=== PATIENT | female | born 1955 | race Caucasian/White ===

== ENCOUNTER → 2018-05-07 01:56 | Outpatient (CLI) | payer MEDICAID, SELFPAY ==
[2018-05-07 11:09] LABS: HCT 47.2 % (36.0-46.0); HGB 15.9 g/dL (12.0-15.5); Mean Corp. HGB Concentration 33.7 g/dL (32.0-36.0); Mean Corpuscular Hemoglobin 30.6 pg (27.0-33.0); Mean Corpuscular Volume 90.9 fL (80-95); Mean Platelet Volume 11.7 fL (8.0-11.0); Platelet Count 188 x1000/uL (130-400); RBC 5.19 m/cumm (4.00-5.20); RBC Distribution Width 13.9 % (11.7-14.6); White Blood Cell Count 8.57 k/cumm (4.4-10.8)
[2018-05-07 11:19] LABS: Hemoglobin A1C 10.1 % (4.5-6.2)
[2018-05-07 11:55] LABS: ALT 40 U/L (12-78); AST 25 U/L (15-37); Albumin 3.8 g/dL (3.4-5.0); Alkaline Phosphatase 107 U/L (46-116); Anion Gap 9.8 mmol/L (3-11); BUN 21 mg/dL (7-18); Bilirubin, Total 0.3 mg/dL (0.2-1.0); CO2 26.2 mmol/L (21.0-32.0); CREATININE 0.99 mg/dL (0.55-1.02); Calcium 8.9 mg/dL (8.5-10.1); Chloride 103 mmol/L (98-107); Estimated GFR 56.84 (mL/min/1.73m2); Ferritin 450 ng/mL (8-388); GGT 67 U/L (5-55); Glucose 270 mg/dL (70-100); HDL Cholesterol 27 mg/dL (40-60); LDL CHOLESTEROL 112 mg/dL (<100); Potassium 4.8 mmol/L (3.5-5.1); Sodium 139 mmol/L (136-145); Total Protein 7.6 g/dL (6.4-8.2); Triglyceride 408 mg/dL (30-150)
[2018-05-07 12:08] LABS: Cholesterol 190 mg/dL (50-200)
[2018-05-07 12:17] LABS: COMMENT (LAB VIEW ONLY) 220.41 mg/dL; Microalb ug/mg Crea 34.8 ug/mg Cr
== END ==
PROVIDERS: PCP Family Medicine; Visit Provider Family Medicine
DX: E11.9 Type 2 diabetes mellitus without complications (principal); E78.5 Hyperlipidemia, unspecified; R71.8 Other abnormality of red blood cells; Z72.89 Other problems related to lifestyle
CPT/HCPCS: 36415; 80053; 80061; 83721; 85027; 82043; 82570; 82728; 82977; 83036

== ENCOUNTER 2018-11-07 07:14 | Emergency (ER) | payer MEDICAID, SELFPAY ==
[2018-11-07 07:21] VITALS: BP 143/77; PULSE 99; RESP 16; TEMP 36.5; O2SAT 97
[2018-11-07 07:53] LABS: Abs Immature Grans 0.02 k/cumm (0.0-0.09); Absolute Basophil Count 0.06 k/cumm (0.0-0.2); Absolute Eosinophil Count 0.11 k/cumm (0.0-0.7); Absolute Lymphocyte Count 3.46 k/cumm (1.2-3.4); Absolute Monocyte Count 0.45 k/cumm (0.11-0.7); Absolute Neutrophil Count 5.56 k/cumm (1.2-6.7); Basophils % 0.6; Eosinophils % 1.1; HCT 47.1 % (36.0-46.0); HGB 15.8 g/dL (12.0-15.5); Immature Grans % 0.2; Lymphocytes % 35.8; Mean Corp. HGB Concentration 33.5 g/dL (32.0-36.0); Mean Corpuscular Hemoglobin 30.8 pg (27.0-33.0); Mean Corpuscular Volume 91.8 fL (80-95); Monocytes % 4.7; Neutrophils % 57.6; Platelet Count 221 x1000/uL (130-400); RBC 5.13 m/cumm (4.00-5.20); White Blood Cell Count 9.66 k/cumm (4.4-10.8)
[2018-11-07 08:07] LABS: ALT 34 U/L (12-78); AST 20 U/L (15-37); Albumin 3.8 g/dL (3.4-5.0); Alkaline Phosphatase 95 U/L (46-116); Anion Gap 10.3 mmol/L (3-11); BUN 19 mg/dL (7-18); Bilirubin, Total 0.3 mg/dL (0.2-1.0); CO2 27.7 mmol/L (21.0-32.0); CREATININE 1.06 mg/dL (0.55-1.02); Calcium 9.6 mg/dL (8.5-10.1); Chloride 101 mmol/L (98-107); Estimated GFR 52.53 (mL/min/1.73m2); Glucose 249 mg/dL (70-100); Lipase 175 U/L (73-393); Magnesium 1.7 mg/dL (1.8-2.4); Potassium 3.9 mmol/L (3.5-5.1); Sodium 139 mmol/L (136-145); Total Protein 8.5 g/dL (6.4-8.2)
--- NOTE | 2018-11-07 08:07 | W.ED.GENAD ---
Discharge Plan Disposition Patient Disposition: HOME Condition: Improving Discharge Details Chief Complaint: Abd Prob Clinical Impression: Gastroenteritis Primary Care Provider: Graciela Dominguez ED Provider: Declan Pacheco Home Meds and New Rx's Prescriptions: Continued ibuprofen 200 MG tablet 1,000 mg PO HS RF: 0 bupropion HCl [Wellbutrin SR] 150 MG tablet extended release 12 hr 150 mg PO BID 30 Days Qty: 180 RF: 11 glipizide 5 MG tablet extended release 24hr 5 mg PO BID Qty: 180 RF: 11 blood sugar diagnostic [FreeStyle Lite Strips] 1 EACH strip 1 ea Miscellaneous DAILY Qty: 100 RF: 11 lancets [FreeStyle Lancets] 1 EACH misc 1 ea Miscellaneous DAILY Qty: 100 RF: 11 metformin 1,000 MG tablet 500 mg PO BID RF: 0 Discharge Instructions Instructions: Gastroenteritis (ED) Additional Instructions: Home to rest today. Return if you develop a fever, increasing discomfort, or any other acute concerns. Small, frequent sips of fluids to maintain hydration. Follow-up with regular doctor if not improving in 3 days time Medical Decision Making 62-year-old female presents from home with intermittent episodes of right upper quadrant abdominal pain over 2-3 weeks time. She denies any inciting foods and did not have an associated fever. She says she had similar presentation when having an episode of hepatitis approximately 4 years ago. She states she has had a cholecystectomy. Her vital signs reveal a temp of 36, pulse 90s, blood pressure 143/77, she is tender in the right upper quadrant of her abdomen. Her current hepatitis, viral syndrome, colitis considered and patient referred for laboratory testing and subsequent CT images. Labs are reassuring with normal LFTs and lipase. White blood cell count is 9. Chemistries unremarkable. CT: 1. Fatty infiltration of the liver. Stable hepatomegaly. 2. Cecum to the left of midline and in the anterior abdomen, similar in appearance to previous examination. No proximal obstruction or cecal dilatation to suggest volvulus. 3. Appendix not visualized. No pericecal inflammatory changes. Patient improved. Discussed with her home management of probable mild viral gastroenteritis, as well as return precautions to the ED. She is stable for discharge home at this time. HPI General Mode of arrival: ambulatory. Date/Time Provider Initiated Documentation: 11/07/18 07:40. Limitations to Documentation: no limitations. Information obtained by: patient. History of Present Illness 62 year old F presents to the emergency department with the chief complaint of Abdominal pain, right-sided and upper over weeks time, worse yesterday, described as moderate, Quality is described as aching, and is localized to the abdomen. Patient reports no radiation. Patient started experiencing this week(s) and it has been intermittent. No relieving factors improve symptom(s), No exacerbating factors reported . Patient notes no other symptoms.; denies fever/chills and nausea/vomiting. Patient did receive the following treatments prior to arrival, none Related Data Home Medications Medication Instructions Recorded Confirmed blood sugar diagnostic [FreeStyle #100 strip 05/11/18 Lite Strips] bupropion HCl [Wellbutrin SR] 150 mg PO BID 30 Days #180 tab-cap 05/11/18 11/07/18 glipizide 5 mg PO BID #180 tab-cap 05/11/18 11/07/18 ibuprofen 1,000 mg PO HS 05/11/18 11/07/18 lancets [FreeStyle Lancets] #100 ea 05/11/18 metformin 500 mg PO BID 11/07/18 11/07/18 Previous Rx's Medication Instructions Recorded blood sugar diagnostic [FreeStyle #100 strip 05/11/18 Lite Strips] bupropion HCl [Wellbutrin SR] 150 mg PO BID 30 Days #180 tab-cap 05/11/18 glipizide 5 mg PO BID #180 tab-cap 05/11/18 lancets [FreeStyle Lancets] #100 ea 05/11/18 Allergies Allergy/AdvReac Type Severity Reaction Status Date / Time omeprazole [From Prilosec] AdvReac Unknown diarrhea Unverified 11/07/18 07:19 General Stated Complaint: Abd Prob DAR: 3 Review of Systems Review of Systems 8 systems reviewed and otherwise negative [facility] Surgical History Cholecystectomy LAPAROSCOPIC LYSIS OF ADHESIONS (12/20/12) Ligation of fallopian tube (~1981) Family History Mother No problems noted. Father Electrocution Daughter Essential hypertension Depression Sister Diabetes Essential hypertension Neoplasm Social History Smoking and Tabacco status: Current every day Exam Narrative Exam Narrative: GEN: awake, alert, oriented 3. Pleasant, well groomed, interactive. HEAD: Normocephalic, atraumatic ENT: Mucous membranes moist, oropharynx unremarkable, External ear exam unremarkable EYES: PERRL, EOMI NECK: Full ROM, no KRISTA, no menigismus CHEST/RESP: Nontender, clear to auscultation bilateral, no wheeze/rhonchi/rales CARDIOVASCULAR: RRR, no murmur, rub brandee. 2+ Rad pulse bilateral ABDOMEN: Soft, right upper quadrant tenderness without rebound, guarding, no Hernandez sign, no mass. +Bowel sounds EXT: Full ROM, no edema, no rash Neuro: Grossly normal neurologic exam, conversant, interactive. Psych: Speech fluent, thoughts congruent, affect normal Course Vital Signs Temperature 36.5 C 11/07/18 07:21 Pulse 99 H 11/07/18 07:21 Respiratory Rate 16 11/07/18 07:21 Blood Pressure 143/77 H 11/07/18 07:21 Pulse Oximetry 97 11/07/18 07:21 Temperature 36.5 C 11/07/18 07:21 Pulse 99 H 11/07/18 07:21 Respiratory Rate 16 11/07/18 07:21 Respiratory Effort Non-Labored 11/07/18 07:26 Blood Pressure 143/77 H 11/07/18 07:21 Blood Pressure Position Sitting 11/07/18 07:21 Pulse Oximetry 97 11/07/18 07:21 Oxygen Delivery Method Room Air 11/07/18 07:21 Oxygen Flow Rate 0 11/07/18 07:21 Pain Level 5 11/07/18 07:21 Lab/Test Results Lab/Test Results: Laboratory Tests Range/Units 11/07/18 07:40 WBC (4.4-10.8) k/cumm 9.66 RBC (4.00-5.20) m/cumm 5.13 Hgb (12.0-15.5) g/dL 15.8 H Hct (36.0-46.0) % 47.1 H MCV (80-95) fL 91.8 MCH (27.0-33.0) pg 30.8 MCHC (32.0-36.0) g/dL 33.5 RDW (11.7-14.6) % 14.0 Plt Count (130-400) x1000/uL 221 MPV (8.0-11.0) fL 11.0 Immature Gran % 0.2 Neutrophils % 57.6 Lymphocytes % 35.8 Monocytes % 4.7 Eosinophils % 1.1 Basophils % 0.6 Absolute Neutrophils (1.2-6.7) k/cumm 5.56 Absolute Lymphocytes (1.2-3.4) k/cumm 3.46 H Absolute Monocytes (0.11-0.7) k/cumm 0.45 Absolute Eosinophils (0.0-0.7) k/cumm 0.11 Absolute Basophils (0.0-0.2) k/cumm 0.06
[2018-11-07] MEDS: Normal Saline 250 ML IV (08:15)
[2018-11-07] MEDS: Omnipaque 350 MG/ML 100 ML BTL IJ (08:56)
--- NOTE | 2018-11-07 09:10 | DI.CT_ITS ---
SYMPTOMS/DIAGNOSIS: RIGHT PAIN, H/O HEPATITIS, S/P CHOLECYSTECTOMY CT SCAN OF THE ABDOMEN AND PELVIS: CT scan of the abdomen and pelvis was performed following the uneventful administration of intravenous contrast material. The lung bases show no acute abnormality. There is diffuse fatty infiltration of the liver. No evidence of a hepatic mass is seen. The portal, superior mesenteric and splenic veins are patent. The patient is status post cholecystectomy. No biliary ductal dilatation is present. The pancreas, spleen and adrenal glands are stable and unremarkable. There is again seen a cyst on the left kidney, which appears stable. No evidence of a solid renal mass or urinary obstruction is seen. The urinary bladder is intact. The reproductive organs are unremarkable. There is atherosclerosis of the abdominal aorta, but no aneurysmal dilatation. No significant abdominal or pelvic adenopathy, ascites or pneumoperitoneum is seen. The bowel has a stable appearance. No evidence of a bowel obstruction, inflammation or infectious process. No findings to suggest an acute appendicitis are present. The bones show degenerative changes. IMPRESSION: No evidence of an acute abdomen.
--- NOTE | 2018-11-07 09:44 | DI.VRAD_ITS ---
EXAM: CT Abdomen and Pelvis With Contrast EXAM DATE/TIME: 11/07/2018 8:22 AM CLINICAL HISTORY: 62 years old, female; Signs and symptoms; Other: R pain, HX 'hepatitis', s. P dipti TECHNIQUE: Axial computed tomography images of the abdomen and pelvis with intravenous contrast. All CT scans at this facility use at least one of these dose optimization techniques: automated exposure control; mA and/or kV adjustment per patient size (includes targeted exams where dose is matched to clinical indication); or iterative reconstruction. Coronal and sagittal reformatted images were created and reviewed. COMPARISON: CT ABD PELVIS WITH CONTRAST 12/20/2012 7:07 PM FINDINGS: Lower thorax: No acute findings. ABDOMEN: Liver: Fatty infiltration of the liver. Stable hepatomegaly. Gallbladder and bile ducts: Previous cholecystectomy. Pancreas: Normal. No ductal dilation. Spleen: Normal. No splenomegaly. Adrenals: Stable left adrenal nodule measures 1.1 x 1.1 cm. Kidneys and ureters: Stable left cortical renal cyst. Stomach and bowel: Cecum to the left of midline and in the anterior abdomen, similar in appearance to previous examination. No proximal obstruction or cecal dilatation to suggest volvulus. Clinical correlation necessary. Appendix: Appendix not visualized. No pericecal inflammatory changes. PELVIS: Bladder: Unremarkable as visualized. Reproductive: Unremarkable as visualized. ABDOMEN and PELVIS: Intraperitoneal space: Normal. No free air. No significant fluid collection. Bones/joints: No acute fracture. No dislocation. Soft tissues: Unremarkable. Vasculature: Normal. No abdominal aortic aneurysm. Lymph nodes: Normal. No enlarged lymph nodes. IMPRESSION: 1. Fatty infiltration of the liver. Stable hepatomegaly. 2. Cecum to the left of midline and in the anterior abdomen, similar in appearance to previous examination. No proximal obstruction or cecal dilatation to suggest volvulus. Clinical correlation necessary. 3. Appendix not visualized. No pericecal inflammatory changes. Dictated and Authenticated by: Amira El MD. Ordering:DARRYL Manriquez MD
[2018-11-07 09:59] VITALS: BP 165/71; PULSE 83; RESP 16; TEMP 36.7; O2SAT 96
== END 2018-11-07 10:01 | disposition home or self-care (01) ==
PROVIDERS: Emergency Medicine; Emergency Provider Emergency Medicine; PCP Family Medicine
DX: K52.9 Noninfective gastroenteritis and colitis, unspecified (principal); J44.9 Chronic obstructive pulmonary disease, unspecified; F17.210 Nicotine dependence, cigarettes, uncomplicated; E11.9 Type 2 diabetes mellitus without complications; Z79.84 Long term (current) use of oral hypoglycemic drugs
CPT/HCPCS: 36415; 80053; 83690; 96360; 96361; 99285; 74177; 83735; 85025; 99284; J3490

== ENCOUNTER 2019-02-07 16:25 | Outpatient (CLI) | payer MEDICAID, SELFPAY ==
--- NOTE | 2019-02-07 15:30 | DI.RAD_ITS ---
SYMPTOM/DIAGNOSIS: CHRONIC LOW BACK PAIN, M54.5, G89.29 LUMBAR SPINE: There is no evidence of compression fractures. The alignment appears normal. There is no significant scoliosis, spondylolysis or spondylolisthesis. There is mild narrowing of the L 2-3 and L 3-4 discs, moderate narrowing of the L 4-5 disc and severe narrowing of the L 5-S 1 disc. Endplate osteophytes are seen throughout. The aorta is calcified and normal in diameter. There is some spurring at the inferior SI joints as well as hip joints. There is narrowing of the left hip joint space. Surgical clips are seen in the right upper quadrant. IMPRESSION: Degenerative changes of the lumbar spine, greatest at L 4-5 and L 5-S 1.
== END 2019-02-07 16:45 ==
PROVIDERS: PCP Family Medicine; Visit Provider Family Medicine
DX: G89.29 Other chronic pain (principal); M54.5 Low back pain; M51.37 Other intervertebral disc degeneration, lumbosacral region
CPT/HCPCS: 72110

== ENCOUNTER 2019-02-23 21:06 | Outpatient (REF) | payer MEDICAID, SELFPAY ==
[2019-02-23 20:56] LABS: Bilirubin Negative (Negative); Blood Negative (Negative); Clarity Clear; Glucose >=1000 mg/dL (Negative); Ketones 15 mg/dL (Negative); Leukocyte Esterase Small (Negative); Nitrite Negative (Negative); Urobilinogen 0.2 EU/dL (Up TO 0.2)
[2019-02-23 20:58] LABS: C & S Indicated? C&S Done As Ordered
[2019-02-23 21:20] LABS: Bacteria Many HPF (Negative); Casts Negative LPF (Negative); Crystals Few Calcium Oxalate HPF (Negative); Epithelial Cells Moderate HPF (Negative); Mucus Negative (Negative); WBC >50 HPF (0-5)
== END 2019-02-23 21:26 ==
LOC: LBN 21:06
PROVIDERS: PCP Family Medicine; Visit Provider Family Medicine
DX: R27.8 Other lack of coordination (principal); R41.0 Disorientation, unspecified; R47.01 Aphasia
CPT/HCPCS: 81003; 81015; 87086

== ENCOUNTER 2019-02-24 07:05 | Outpatient (CLI) | payer MEDICAID, SELFPAY ==
--- NOTE | 2019-02-24 09:52 | DI.US_ITS ---
SYMPTOMS/DIAGNOSIS: TRANSIENT ISCHEMIC ATTACK, TRANSIENT CONFUSION, EXPRESSIVE APHASIA, INCOORDINATION OF EXTREMITY, DISORIENTATION, R41.0, R47.01, R27.8 CAROTID ULTRASOUND: Mild plaque is noted in the carotid bulbs, right more prominent than left. There is bilateral antegrade flow in the vertebrals. There is no evidence of significant carotid stenosis. Incidental note is made of a nodule in the left thyroid lobe. SUMMARY: No evidence of significant carotid stenosis.
--- NOTE | 2019-02-24 09:52 | DI.CT_ITS ---
SYMPTOMS/DIAGNOSIS: TRANSIENT CONFUSION, EXPRESSIVE APHASIA, INCOORDINATION OF EXTREMITY, DISORIENTATION, R41.0, R47.01, R27.8, SX SUGGESTIVE OF CEREBRAL ISCHEMIA CRANIAL CT: A noncontrast enhanced examination was performed. There is no evidence of an intra or extra-axial hemorrhage, mass or fluid collection. Small regions of diminished absorption in the frontoparietal white matter bilaterally would be consistent with small vessel disease. The ventricles are unremarkable. There is no evidence of a skull fracture. The frontal sinus is not aerated. The ethmoid, maxillary and sphenoid sinus is clear. There is no evidence of a mastoid effusion. SUMMARY: No evidence of an acute intracerebral abnormality.
== END 2019-02-24 07:25 ==
PROVIDERS: PCP Family Medicine; Visit Provider Family Medicine
DX: R27.8 Other lack of coordination (principal); R41.0 Disorientation, unspecified; R47.01 Aphasia; G45.9 Transient cerebral ischemic attack, unspecified
CPT/HCPCS: 80053; 80061; 83721; 85652; 70450; 83036; 85025; 93880

== ENCOUNTER 2019-03-01 21:43 | Outpatient (REF) | payer MEDICAID, SELFPAY ==
[2019-03-01 19:41] LABS: Bilirubin Negative (Negative); Blood Negative (Negative); Clarity Clear; Glucose 250 mg/dL (Negative); Ketones Trace mg/dL (Negative); Leukocyte Esterase Negative (Negative); Nitrite Negative (Negative); Specific Gravity 1.025 (1.005-1.025); Urobilinogen 0.2 EU/dL (Up TO 0.2)
[2019-03-01 19:50] LABS: Bacteria Negative HPF (Negative); C & S Indicated? No; Casts Negative LPF (Negative); Crystals Negative HPF (Negative); Epithelial Cells Rare HPF (Negative); Mucus Negative (Negative); Other Cells Negative (Negative); RBC 0-2 (0-2); WBC 0-2 HPF (0-5)
== END 2019-03-01 22:03 ==
LOC: LBN 21:43
PROVIDERS: PCP Family Medicine; Visit Provider Family Medicine
DX: R31.29 Other microscopic hematuria (principal)
CPT/HCPCS: 81003; 81015

== ENCOUNTER 2019-03-07 02:25 | Outpatient (CLI) | payer MEDICAID, SELFPAY ==
--- NOTE | 2019-03-10 05:46 | HOLTER_ITS ---
HOLTER MONITOR DATE OF DICTATION March 09, 2019 STUDY INDICATIONS: Aphasia. REQUESTING PROVIDER: Wilbert Gallegos M.D. COMMENTS: The patient was monitored for two days. Baseline sinus rhythm. Average heart rate 94 beats per minute, range 71 to 152 beats per minute. 18 PVCs. No VT. 14 PACS. No SVT or Afib. No bradycardias or pauses. SYMPTOMS No patient events. FINAL INTERPRETATION Normal study. Drew Neves M.D. THOMAS/иван T - 03/10/19
== END 2019-03-07 02:45 ==
PROVIDERS: PCP Family Medicine; Visit Provider Family Medicine
DX: R47.01 Aphasia (principal); R41.82 Altered mental status, unspecified; I49.3 Ventricular premature depolarization; I49.1 Atrial premature depolarization
CPT/HCPCS: 93225

== ENCOUNTER 2019-03-09 10:40 | Outpatient (CLI) | payer MEDICAID, SELFPAY | END 2019-03-09 11:00 | PROVIDERS: PCP Family Medicine; Visit Provider Family Medicine | DX: R47.01 Aphasia (principal); R41.82 Altered mental status, unspecified; I49.3 Ventricular premature depolarization; I49.1 Atrial premature depolarization | CPT/HCPCS: 93226 ==

== ENCOUNTER 2020-04-23 01:00 | Outpatient (CLI) | payer SELFPAY ==
--- NOTE | 2020-04-23 08:02 | DI.CT_ITS ---
EXAM: CT HEAD WO CLINICAL HISTORY: DOWNING, weakness with falls for 3weeks,r53.1,R51,W19.XXA. TECHNIQUE: Imaging Protocol: Axial computed tomography images with coronal and sagittal reformatted images were created and reviewed COMPARISON: CT CT HEAD WO from 02/24/2019 FINDINGS: Ventricles and Extra axial spaces: Normal in size and morphology for the patient's age. Hemorrhage: None. Cerebral parenchyma: Mildly decreased attenuation in white matter of the left parietal lobe. Midline shift: None. Brainstem/Cerebellum: Normal. Calvarium: Normal. Visualized Paranasal sinuses/Mastoids: Clear. Soft Tissues: Unremarkable. IMPRESSION: Small area of decreased attenuation in the left parietal white matter, could represent represent sequ tomi small vessel disease. No acute abnormality is identified.. RADIATION DOSE DELIVERED: Total DLP DATA REPOSITORY: All CT scans at this facility are submitted to the National Radiology Data Registry (NRDR) Dose Index Registry (DIR) with the [employer] (ACR). RADIATION OPTIMIZATION: All CT scans at this facility use at least one of these dose optimization te chniques: automated exposure control; mA and/or kV adjustment per patient size (includes targeted exa ms where dose is matched to clinical indication); or iterative reconstruction.
== END 2020-04-23 01:20 ==
PROVIDERS: PCP Family Medicine; Visit Provider Family Medicine
DX: R51 Headache (principal); R53.1 Weakness; W19.XXXA Unspecified fall, initial encounter
CPT/HCPCS: 70450

== ENCOUNTER 2020-04-30 00:59 | Outpatient (CLI) | payer MEDICAID, SELFPAY ==
--- NOTE | 2020-04-30 07:42 | DI.MRI_ITS ---
EXAM: MR BRAIN WO/W CLINICAL HISTORY: LEFT-SIDED FACIAL PARESTHESIA, DIZZINESS,FALLS, DOWNING,R20.2,R51, R42, W19.XXXA. TECHNIQUE: Multiplanar multisequence MRI was performed. MR examination of the brain was performed a ccording to the usual protocol with additional post contrast T1 weighted axial and coronal imaging. COMPARISON: No exams were available for comparison FINDINGS: There is mild generalized cerebral atrophy. There are multiple small focal areas of abnormal signal in periventricular white matter consistent with microvascular ischemic change. Small subcortical are as of abnormal signal are also noted on T2 weighted and FLAIR imaging and there is an area of abnorma l signal, left parietooccipital region, involving the periventricular and subcortical white matter. Diffusion-weighted imaging shows no evidence of acute or subacute infarction. Susceptibility-weighte d imaging shows no evidence of hemorrhage. No enhancing lesion or mass lesion identified in the brai n. The orbital and temporal bone structures appear intact. There is normal flow void in the [place] vasculature. IMPRESSION: Signal changes involving subcortical and periventricular white matter as described above, possible sm all old left parietooccipital infarct. No evidence of acute or subacute infarction or hemorrhage. N o enhancing lesion or mass lesion. DATA REPOSITORY:
[2020-04-30 13:57] LABS: Abs Immature Grans 0.03 10^3/uL (0.0-0.06); Absolute Basophil Count 0.09 10^3/uL (0.0-0.2); Absolute Eosinophil Count 0.22 10^3/uL (0.0-0.7); Absolute Lymphocyte Count 4.64 10^3/uL (1.2-3.4); Absolute Monocyte Count 0.72 10^3/uL (0.1-0.8); Absolute Neutrophil Count 5.48 10^3/uL (1.2-6.7); Basophils % 0.8; HCT 50.3 % (36.0-46.0); HGB 16.3 g/dL (11.2-15.7); Immature Grans % 0.3; Lymphocytes % 41.5; MCH 29.9 pg (27.0-33.0); MCHC 32.4 % (32.0-36.0); MCV 92.3 fL (80-95); MPV 11.2 fL (8.0-11.0); Monocytes % 6.4; Platelet Count 208 10^3/uL (130-400); RBC 5.45 10^6/uL (3.93-5.22); RDW 14.1 % (11.7-14.6); WBC 11.18 10^3/uL (4.4-10.8)
[2020-04-30 14:07] LABS: Hemoglobin A1C 9.5 % (3.8-5.6)
[2020-04-30 14:17] LABS: ALT 32 U/L (14-59); AST 18 U/L (15-37); Albumin 3.8 g/dL (3.4-5.0); Alkaline Phosphatase 93 U/L (46-116); Anion Gap 10.2 mmol/L (3-11); BUN 19 mg/dL (7-18); Bilirubin, Total 0.2 mg/dL (0.2-1.0); CO2 23.8 mmol/L (21.0-32.0); CREATININE 0.83 mg/dL (0.55-1.02); Calcium 9.2 mg/dL (8.5-10.1); Chloride 104 mmol/L (98-107); Cholesterol 140 mg/dL (<200); Glucose 222 mg/dL (74-106); HDL Cholesterol 25 mg/dL (40-60); Potassium 3.8 mmol/L (3.5-5.1); Sodium 138 mmol/L (136-145); TSH (W/Ref FT4) 1.08 uIU/mL (0.36-3.74); Triglyceride 567 mg/dL (<150)
[2020-04-30] MEDS: Normal Saline Flush 10 ML SYR IVP (14:27)
[2020-04-30] MEDS: Gadoterate meglumine 20 ML VIAL 15 ML IVP (14:27)
[2020-04-30 14:33] LABS: LDL CHOLESTEROL 74 mg/dL (<100)
[2020-04-30 14:58] LABS: ESR 24 mm/hr (0-30)
[2020-04-30 15:29] LABS: Bilirubin Negative (Negative); Blood Negative (Negative); Clarity Clear (Clear); Glucose >=1000 mg/dL (Negative); Ketones Negative (Negative); Leukocyte Esterase Negative (Negative); Nitrite Negative (Negative); Urobilinogen 0.2 EU/dL (Up TO 0.2); pH 5.5 (5-8)
[2020-05-01 11:29] LABS: Lyme Ab w Rflx to Lyme Confirm Negative (Negative)
== END 2020-04-30 01:19 ==
PROVIDERS: PCP Family Medicine; Visit Provider Family Medicine
DX: G31.9 Degenerative disease of nervous system, unspecified (principal); R53.1 Weakness; R29.6 Repeated falls; R20.2 Paresthesia of skin; R42 Dizziness and giddiness; R51 Headache; R90.89 Other abnormal findings on diagnostic imaging of central nervous system
CPT/HCPCS: 70553; 80053; 80061; 83721; 85652; 81003; 83036; 84443; 85025; 86618

== ENCOUNTER 2020-05-11 01:46 | Outpatient (CLI) | payer MEDICAID, SELFPAY ==
--- NOTE | 2020-05-11 05:45 | DI.US_ITS ---
EXAM: US CAROTID CLINICAL HISTORY: frequent falls,bilat claudification of lower limb,smoker,low hdl,r29.6. TECHNIQUE: Ultrasound carotids performed using grayscale, color-flow, and spectral Doppler imaging. COMPARISON: US US carotid from 02/24/2019 FINDINGS: RIGHT CAROTID ARTERY: Plaque: [id number] calcific plaque in the carotid bulb and proximal ICA. Velocity elevation: No hemodynamically significant velocity elevation. LEFT CAROTID ARTERY: Plaque: [id number] calcific plaque in the carotid bulb and proximal ICA. Velocity elevation: No hemodynamically significant velocity elevation. VERTEBRAL ARTERIES: Antegrade flow. Measurements: R Bulb: 70.7cm/s PS / 19.9cm/s ED R CCA: 75.2cm/s PS / 18cm/s ED R ECA: PS / ED R ICA Prox: 114.6cm/s PS /29.4cm/s ED R ICA Mid: 104.1cm/s PS / 28.4cm/s ED R ICA Distal: 65.3cm/s PS /22.3cm/s ED R Vert: 27.3cm/s PS / 8.3cm/s ED R SVR: 1.52 R DVR: 1.63 L Bulb: 83.1cm/s PS /21.7cm/s ED L CCA: 69.4cm/s PS / 19.9cm/s ED L ECA: PS / ED L ICA Prox:94.85cm/s PS / 24.95cm/s ED L ICA Mid: 90.7cm/sPS / 34.2cm/s ED L ICA Distal: 100.8cm/s PS / 34.7cm/s ED L Vert: 41.5cm/s PS / 16.3cm/s ED L SVR: 1.45 L DVR: 1.53 IMPRESSION: No evidence for hemodynamically significant carotid stenosis. Criteria for Carotid Stenosis: Normal: ICA PSV <125 cm/s no plaque or intimal thickening is visible. <50% stenosis: ICA PSV <125 cm/s and plaque or intimal thickening is visible. 50-69% stenosis: ICA PSV is 125-250 cm/s and plaque is visible. >70% stenosis to near occlusion: ICA PSV >250 cm/s with visible plaque and luminal narrowing. DATA REPOSITORY:
== END 2020-05-11 02:06 ==
PROVIDERS: PCP Family Medicine; Visit Provider Family Medicine
DX: R29.6 Repeated falls (principal); F17.200 Nicotine dependence, unspecified, uncomplicated; E11.51 Type 2 diabetes mellitus with diabetic peripheral angiopathy without gangrene
CPT/HCPCS: 93880

== ENCOUNTER 2020-05-25 00:45 | Outpatient (CLI) | payer MEDICAID, SELFPAY ==
--- NOTE | 2020-05-31 10:40 | W.CARDEVENT ---
Date of service: 05/31/20 Time of Service: 10:40 Cardiac Event Recorder Referring Provider:: Dr Schmitt Indications:: CVA Cardiac Event Note: This is an event monitor reportedly ordered for indication of cerebral infarction Patient was monitored for 3 days. Rhythm was sinus. Average heart rate was 96 There were no significant dysrhythmias. Specifically there was no atrial fibrillation seen
== END 2020-05-25 01:05 ==
PROVIDERS: PCP Family Medicine; Visit Provider Psychiatry & Neurology Neurology
DX: I63.9 Cerebral infarction, unspecified (principal)
CPT/HCPCS: 93270

== ENCOUNTER 2020-06-07 00:53 | Outpatient (CLI) | payer MEDICAID, SELFPAY ==
--- NOTE | 2020-06-07 08:00 | DI.US_ITS ---
APPROVED REPORT EXAM: Comprehensive 2D, Doppler, and color-flow Echocardiogram Patient Location: Out-Patient Fine [employer] Instructor: Debbie Galindo RDCS (AE) Indications: Stroke, CVA Other Information Study Quality: Adequate Conclusion Left Ventricle : The left ventricle is normal size. The left ventricular systolic function is normal. The left ventricular ejection fraction is within the normal range. There is normal left ventricular wall thickness. There is normal LV segmental wall motion. Mild diastolic dysfunction is present (impa ired relaxation pattern). LVEF is 55%. Right Ventricle : The right ventricle is normal size. The right ventricular systolic function is norm al. Atria : The left atrium size is normal. The right atrium size is normal. Valves: There are no hemodynamically significant valvular lesions. Great Vessels : The aortic root is normal in size. The ascending aorta is mildly dilated. Aortic arch is not well visualized. IVC is normal in size and collapses >50% with inspiration. There is no prior study available for comparison. Wall motion Left Ventricle The left ventricle is normal size. The left ventricular systolic function is normal. The left ventric ular ejection fraction is within the normal range. There is normal left ventricular wall thickness. T here is normal LV segmental wall motion. Mild diastolic dysfunction is present (impaired relaxation p attern). There is no ventricular septal defect visualized. LVEF is 55%. Right Ventricle The right ventricle is normal size. The right ventricular systolic function is normal. Atria The left atrium size is normal. The right atrium size is normal. The interatrial septum is intact wit h no evidence for an atrial septal defect. Aortic Valve The aortic valve is normal in structure. Aortic valve is trileaflet. There is no aortic valvular sten osis. No aortic regurgitation is present. Mitral Valve The mitral valve is normal in structure. No evidence of mitral valve stenosis. Trace mitral regurgita tion. Tricuspid Valve The tricuspid valve is normal in structure. There is no tricuspid valve stenosis. Trace tricuspid reg urgitation. Pulmonic Valve The pulmonary valve is normal in structure. There is no pulmonic valvular stenosis. There is no pulmo kianna valvular regurgitation. Great Vessels The aortic root is normal in size. The ascending aorta is mildly dilated. Aortic arch is not well vis ualized. IVC is normal in size and collapses >50% with inspiration. Pericardium There is no pericardial effusion. 2D Dimensions IVSD d PLAX 1.00 cm F: 0.6-1.0 LV Vol A2C d MOD 75.5 mL LVPW d PLAX 1.01 cm F: 0.6 - 1.0 LV Vol A4C d MOD 61.0 mL LVID d PLAX 4.06 cm F: 3.8 - 5.2 LA vol/ BSA A2C s A-L 14.4 mL/m2 LVDs 2.90 cm F: 2.2 - 3.5 LA vol/ BSA A4C s A-L 9.2 mL/m2 Ao Root d 3.08 cm F: 2.7 - 3.3 LA Vol/ BSA Biplane s A-L 12.0 mL/m2 RA Area A4C 9.38 cm2 LA Area A4C s MOD 8.13 cm2 RA Vol/ BSA A4C s A-L 10.4 mL/m2 LA Area A2C s MOD 10.60 cm2 Ao Asc Diam d 3.25 cm F: 2.3 - 3.1 LV EF A4C MOD 55.4 % LV EF Teichholz 55.2 % LV EF A2C MOD 54.9 % LVEF (Medina's) 55.20 % F: 54 - 74 LV EF Biplane MOD 55.2 % LV Volume 54.98 mL F: 46 - 106 SV 38.93 mL LV Volume Index 30.71 mL/m2 F: 29 - 61 SV Index 21.77 mL/m2 LV Vol Biplane MOD 70.5 mL FS 28.30 % M-Mode TAPSE 1.63 cm (M/F) >1.7 LV Diastology MV E' medial 0.055 (>0.07 m/s) E/A Ratio 0.6 LV E/e MED 10.20 (<14) MV E Vmax 0.57 (0.4-1.3 m/s) MV E' lateral 0.093 (>0.1 m/s) MV A Vmax 1.00 (0.4-1.3 m/s) LV E/e LAT 6.05 (<14) MV E/A Ratio 0.56 MV E/E' medial 10.22 MV E/E' lateral 6.10 Aortic Valve LVOT Area 3.87 cm2 AoV Area Vmax 2.76 cm2 LVOT Vmax 0.77 m/s AoV Area/ BSA (Vmax) 1.54 cm2/m2 LVOT Mean Kemar. 0.54 m/s ZHEN Mean Kemar. 2.59 cm2 LVOT Peak Grad 2.4 mmHg ZHEN Mean [place]. Index 1.45 cm2/m2 LVOT Mean Grad 1.3 mmHg LVOT VTI 0.143 m LVOT Diam s 2.20 cm AoV Vmax 1.09 m/s Velocity Ratio 0.70 AoV Mean Kemar. 0.81 m/s AoV Peak Grad 4.7 mmHg LVOT SV 55.48 mL AoV Mean Grad 2.8 mmHg AoV VTI 0.231 m AoV Area VTI 2.41 cm2 AoV Area/ BSA (VTI) 1.35 cm/m2 Mitral Valve MV DT 180 (160-240 msec) MV PHT 52 msec MV Area PHT 4.22 cm2 Pulmonary Valve PV Vmax 0.86 (0.5-1.5 m/s) RVOT Peak Gr. 1.56 mmHg PV Peak Grad 3.0 mmHg RVOT Mean Gr. 0.90 mmHg PV Mean Grad 1.5 mmHg RVOT VTI 0.127 m PV VTI 0.153 m RVOT Vmax 0.62 m/s Tricuspid Valve TR Peak Grad 21.6 mmHg TR Vmax 2.33 m/s RA Pressure 3.00 mmHg RVSP (TR) 24.7 mmHg
== END 2020-06-07 01:13 ==
PROVIDERS: PCP Family Medicine; Visit Provider Psychiatry & Neurology Neurology
DX: I63.9 Cerebral infarction, unspecified (principal); I77.810 Thoracic aortic ectasia
CPT/HCPCS: 93306

== ENCOUNTER 2020-06-21 08:12 | Outpatient (CLI) | payer MEDICAID, SELFPAY ==
--- NOTE | 2020-06-21 09:53 | DI.RAD_ITS ---
EXAM: XR SACROILIAC JOINTS CLINICAL HISTORY: SI joint stiffness and pain bilat.m53.3,g89.29. TECHNIQUE: 2D digital imaging was performed. COMPARISON: No exams were available for comparison FINDINGS: The sacroiliac joints are well maintained. No ankylosis or erosions. Mild significant degenerative changes are seen. Note is made of moderately severe degenerative changes of the left hip with joint space narrowing, subchondral sclerosis and cysts, and hypertrophic changes. There are mild degenerat claudia changes seen of the right hip. Atherosclerosis is present. Degenerative changes are seen in the lower lumbar spine. IMPRESSION: 1. Mild degenerative changes of the SI joints. 2. Moderately severe left hip osteoarthritis. DATA REPOSITORY: RADIATION DOSE DELIVERED:
== END 2020-06-21 08:32 ==
PROVIDERS: PCP Family Medicine; Visit Provider Family Medicine
DX: M53.3 Sacrococcygeal disorders, not elsewhere classified (principal); G89.29 Other chronic pain; M16.12 Unilateral primary osteoarthritis, left hip
CPT/HCPCS: 72202

== ENCOUNTER 2020-07-19 04:32 | Outpatient (CLI) | payer MEDICAID, SELFPAY | END 2020-07-19 04:52 | PROVIDERS: PCP Family Medicine; Visit Provider Psychiatry & Neurology Neurology | DX: I63.9 Cerebral infarction, unspecified (principal) | CPT/HCPCS: 0296T ==

== ENCOUNTER 2020-08-09 01:32 | Outpatient (CLI) | payer MEDICAID, SELFPAY ==
--- NOTE | 2020-08-09 13:00 | NS.NUTBLAN_ITS ---
ASSESSMENT: Kera ( 64 y/o F) referred by Dr Rm for nutritional counseling R/T DM2, food choices hx elevated A1c and BG. Documentation reveals hx A1c > 14% with most recent (04/30/20) at 16.3% (CH) and BG 222 mg/dl (H). Finger stick in this office ~ 2hrs postprandial revealed 176 mg/dl (WNL for PWD). She has a glucomter and test strips at home and documentation shows this. She is currently 165lb which is 137.5% IBW. Nutritional needs based on ABW 140lbs as follows: 1600- 1920 k/gaurav, 77 g/ pro, 1900-200 ml fluids/day. She drinks crystal light mixed with water and coffee with sweetened flavored creamer and splenda. Noted: Documentation shows hx ETOH which she denies. She has PVD which she states prevents her from taking walks. She stated that she goes to PT and uses the pool at those sessions. She is on glipizide 5 mg and metformin 500mg. Both of these are in the ER form to mitigate GI side effects. She is a smoke and says she has cut back.She cooks at home.She reports eating 3 bananas/day as snacks. INTERVENTION: Reviewed CHO counting techniques. Demonstrated and had patient utilize [employer] and [place] [employer] phone ariella to help with CHO counting. Recommended Heart healthy low Na diet in addition to her CHO controlled food choices. Noted: she has HX CVA. Educated Kera on CHO and PRO pairing top help with glucose spikes. Recommended food record and BG record keeping X 7 days to facilitate understanding of BG levels and food choices. Discussed alternative snacks or reducing banana consumption to 1 per day to reduce CHO intake. Provided take home literature on all topics Provided contact info for this RD to help with food choices, recipes or questions related to nutrition reviewed portion sizes and provided covered portion control plate to help with appropriate intake of macronutrients intake. MONITOR/EVAL: Kera has agreed to set up F/U appointment in 30 days to review progress and go over her food and BG log to look at the relationship between food choices and BG levels. Time Spent face to Face: 4 units/1 hour. .
== END 2020-08-09 01:52 ==
PROVIDERS: PCP Family Medicine; Visit Provider Dietitian, Registered
DX: E11.65 Type 2 diabetes mellitus with hyperglycemia (principal); Z79.84 Long term (current) use of oral hypoglycemic drugs; Z71.3 Dietary counseling and surveillance
CPT/HCPCS: 97802

== ENCOUNTER 2020-08-17 01:55 | Outpatient (CLI) | payer MEDICAID, SELFPAY ==
[2020-08-17 08:25] LABS: Hemoglobin A1C 7.2 % (<5.7)
[2020-08-17 09:59] LABS: ALT 28 U/L (14-59); AST 16 U/L (15-37); Albumin 3.8 g/dL (3.4-5.0); Alkaline Phosphatase 78 U/L (46-116); Anion Gap 11.7 mmol/L (3-11); BUN 25 mg/dL (7-18); Bilirubin, Total 0.3 mg/dL (0.2-1.0); CO2 26.3 mmol/L (21.0-32.0); CREATININE 0.97 mg/dL (0.55-1.02); Calcium 8.9 mg/dL (8.5-10.1); Calculated LDL 49 mg/dL (<100); Chloride 103 mmol/L (98-107); Cholesterol 132 mg/dL (<200); Estimated GFR 57.82 (mL/min/1.73m2); Glucose 146 mg/dL (74-106); HDL Cholesterol 31 mg/dL (40-60); Potassium 4.5 mmol/L (3.5-5.1); Sodium 141 mmol/L (136-145); Total Protein 7.6 g/dL (6.4-8.2); Triglyceride 263 mg/dL (<150)
== END 2020-08-17 02:15 ==
PROVIDERS: PCP Family Medicine; Visit Provider Family Medicine
DX: E11.9 Type 2 diabetes mellitus without complications (principal)
CPT/HCPCS: 36415; 80053; 80061; 83036

== ENCOUNTER 2020-09-12 00:21 | Outpatient (CLI) | payer OTHER, MEDICAID, SELFPAY ==
--- NOTE | 2020-09-12 09:25 | DI.RAD_ITS ---
EXAM: XR HIP PELVIS ADULT BL CLINICAL HISTORY: SCIATIC PAIN OF HIPS, DISABILITY DETERMINATION. TECHNIQUE: 2D digital imaging was performed. COMPARISON: CR XR lumbar spine complete from 02/07/2019 FINDINGS: No evidence of pelvic nor hip fracture. No osseous lesions. There are moderate-advanced degenerativ e changes in the left hip. Mild degenerative changes in the right hip. No osseous lesions. Vascula r calcification both femoral arteries and iliac arteries noted. IMPRESSION: Advanced degenerative changes in the left hip. No fracture evident. Signature DATA REPOSITORY: RADIATION DOSE DELIVERED:
--- NOTE | 2020-09-12 09:25 | DI.RAD_ITS ---
EXAM: XR LUMBAR SPINE AP, LAT CLINICAL HISTORY: DISABILITY DETERMINATION,LOW BACK PAIN. TECHNIQUE: 2D digital imaging was performed. COMPARISON: CR LUMBAR SPINE AP, LAT from 10/09/2013 FINDINGS: There is no evidence of fracture or listhesis nor pars defects. There is advanced disc space narrowi ng at L5-S1 level. Moderate-advanced disc space narrowing again noted at L4-5 and L3-4 levels. Post erior bony ridging at L3-4 level is again noted; probably an element of canal stenosis. Moderate dis c space narrowing at L1-2 and L2-3 levels again noted. No osseous lesions. No scoliosis. Moderate mild facet arthropathy. SI joints unremarkable. Calcified abdominal aorta with possible fusiform an eurysm upper abdominal aorta. IMPRESSION: Multilevel chronic degenerative disc disease. Mild progression from 2013. Probable spinal canal emmy nosis. Calcified abdominal aorta with suggestion of possible aneurysm. This is at L2 level. Recommend ultr asound of the abdominal aorta follow-up. DATA REPOSITORY: RADIATION DOSE DELIVERED:
== END 2020-09-12 00:41 ==
PROVIDERS: PCP Family Medicine; Visit Provider Pediatrics Pediatric Rheumatology
DX: M47.816 Spondylosis without myelopathy or radiculopathy, lumbar region (principal); I70.0 Atherosclerosis of aorta; M16.12 Unilateral primary osteoarthritis, left hip; I70.203 Unspecified atherosclerosis of native arteries of extremities, bilateral legs
CPT/HCPCS: 73521; 72100

== ENCOUNTER 2020-11-02 19:26 | Outpatient (REF) | payer MEDICAID, SELFPAY ==
[2020-11-02 14:36] LABS: COMMENT (LAB VIEW ONLY) 45.45 mg/dL; Microalb ug/mg Crea 26.8 ug/mg Cr
== END 2020-11-02 19:27 | disposition home or self-care (01) ==
LOC: LBN 19:26
PROVIDERS: PCP Family Medicine; Visit Provider Nurse Practitioner Family
DX: Z00.00 Encounter for general adult medical examination without abnormal findings (principal)
CPT/HCPCS: 82043; 82570

== ENCOUNTER 2020-11-22 15:35 | Outpatient (REF) | payer MEDICAID, SELFPAY | END 2020-11-22 15:36 | disposition home or self-care (01) | LOC: LBN 15:35 | PROVIDERS: PCP Family Medicine; Visit Provider Nurse Practitioner Family | DX: N76.0 Acute vaginitis (principal) | CPT/HCPCS: 87480; 87510; 87660 ==

== ENCOUNTER 2021-01-24 16:39 | Inpatient (IN) | payer MEDICARE, MEDICAID, SELFPAY ==
[2021-01-24] VITALS (38 sets, daily range): BP systolic 124–189; BP diastolic 59–109; PULSE 76–97; RESP 16–25; TEMP 36.7; O2SAT 86–100
--- NOTE | 2021-01-24 16:30 | DI.CT_ITS ---
Exam(s) CT HEAD - STROKE PROTOCOL EXAM: CT HEAD - STROKE PROTOCOL CLINICAL HISTORY: prior stroke, severe DOWNING. TECHNIQUE: Imaging Protocol: Axial computed tomography images with coronal and sagittal reformatted images were created and reviewed COMPARISON: No exams were available for comparison FINDINGS: Ventricles and Extra axial spaces: Normal in size and morphology for the patient's age. Hemorrhage: None. Cerebral parenchyma: No acute territorial infarct is identified. Midline shift: None. Brainstem/Cerebellum: Normal. Calvarium: Normal. Visualized Paranasal sinuses/Mastoids: Clear. Soft Tissues: Unremarkable. IMPRESSION: No acute intracranial process. RADIATION DOSE DELIVERED: 731.08mGy.cm Total DLP DATA REPOSITORY: All CT scans at this facility are submitted to the National Radiology Data Registry (NRDR) Dose Index Registry (DIR) with the [employer] (ACR). RADIATION OPTIMIZATION: All CT scans at this facility use at least one of these dose optimization te chniques: automated exposure control; mA and/or kV adjustment per patient size (includes targeted exa ms where dose is matched to clinical indication); or iterative reconstruction.
--- NOTE | 2021-01-24 16:30 | RT.EKG_ITS ---
APPROVED REPORT Exam: Resting ECG Patient Location: E HR:87 bpm ECG Measurements Heart Rate 87 AXIS AZ 151 P 55 QRSd 79 QRS 47 QT 386 T 56 QTc 465 Conclusion Sinus rhythm...normal P axis, V-rate 60- 99
[2021-01-24] MEDS: Ondansetron 4 MG/2 ML VIAL IVP (17:00)
--- NOTE | 2021-01-24 17:01 | ED.GENADUL_ITS ---
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 Patient weakness is present on exam and otherwise neurologic exam unremarkable. Patient has been having headaches almost daily. Screening ECG was reviewed and interpreted by me: Please see report, sinus rhythm, 87 bpm, nondiagnostic. Plan to proceed to stat CT of the head to assess for hemorrhagic stroke. We will treat pain with Dilaudid 1 mg IV and nausea with Zofran 4 mg IV. --Patient was noted to have an episode of vomiting. I will give Compazine IV with Benadryl IV to treat both headache and the nausea 1951 -- CTA of the head was interpreted by radiology: CT of the head was interpreted by radiology: Mild asymmetric thickening of the left torus tubarius , new from prior study. Consider possible inflammatory process. Follow-up recommended. No evidence of for acute intracranial vascular abnormality CTA of the neck was interpreted by radiology: severe stenosis proximal left subclavian artery. Mild proximal right and left ICA stenosis. Discussed results with the patient including limitations of diagnostic results. Discussed lumbar puncture additional diagnostic recommendation and patient provided informed refusal of LP. Given prior stroke history and needing worsening left-sided weakness/paresthesia, consider CVA. Plan to hospitalize for further work-up. Patient reassessed and notes significant improvement in headache with Compazine. I spoke with Dr. Simmons and discussed ED presentation and course including diagnostic results. He will admit the patient. HPI General Mode of arrival: ambulatory . Date/Time Provider Initiated Documentation: 01/24/21 16:42 . Limitations to Documentation: no limitations . Information obtained by: patient . HPI Narrative: 65-year-old female with multiple medical problems including history of intermittent headaches, multiple CVAs and residual left-sided facial weakness, here with severe headache. Headache started yesterday evening and has persisted. Headache is severe rated 9/10. No modifiers. Headache is localized to left frontal. She also notes associated increased tingling/weakness left face. No other numbness or weakne ss. No neck pain. No fevers. Patient does note associated vomiting just prior to arrival. Related Data Home Medications Medication Instructions Recorded Confirmed Blood Glucose Test #100 each NS 05/09/20 01/31/21 atorvastatin 20 mg tablet 20 mg PO QHS #90 tab 05/09/20 01/31/21 blood-glucose meter #1 each 05/09/20 01/31/21 glipizide 5 mg tablet, extended 5 mg PO BID #180 tab-cap 05/09/20 01/31/21 release 24 hr lancets 28 gauge #100 ea 05/09/20 01/31/21 clopidogrel 75 mg tablet 75 mg PO DAILY #90 tab 07/16/20 01/31/21 metformin 500 mg tablet,extended 1,000 mg PO BID tab 10/01/20 01/31/21 release 24 hr blood pressure monitor #1 ea 10/02/20 01/31/21 citalopram 20 mg tablet 40 mg PO DAILY #60 tab 11/02/20 01/31/21 verapamil 40 mg tablet 40 mg PO DAILY #90 tab 11/14/20 01/31/21 galcanezumab-gnlm 120 mg/mL 240 mg SUBCUT ONCE #2 ml 01/31/21 01/31/21 subcutaneous pen injector Previous Rx's Medication Instructions Recorded Blood Glucose Test #100 each NS 05/09/20 atorvastatin 20 mg tablet 20 mg PO QHS #90 tab 05/09/20 blood-glucose meter #1 each 05/09/20 glipizide 5 mg tablet, extended 5 mg PO BID #180 tab-cap 05/09/20 release 24 hr lancets 28 gauge #100 ea 05/09/20 clopidogrel 75 mg tablet 75 mg PO DAILY #90 tab 07/16/20 blood pressure monitor #1 ea 10/02/20 citalopram 20 mg tablet 40 mg PO DAILY #60 tab 11/02/20 verapamil 40 mg tablet 40 mg PO DAILY #90 tab 11/14/20 galcanezumab-gnlm 120 mg/mL 240 mg SUBCUT ONCE #2 ml 01/31/21 subcutaneous pen injector Allergies Allergy/AdvReac Type Severity Reaction Status Date / Time omeprazole [From Prilosec] AdvReac Unknown diarrhea Verified 01/31/21 15:01 General Stated Complaint: CVA/TIA DAR: 2 Review of Systems All systems reviewed & are unremarkable except as noted in HPI and below Constitutional Constitutional: Denies fever(s) Neurologic Neurologic: Reports as per HPI [facility] Medical History Alcohol intake above recommended sensible limits Chronic left hip pain (02/05/18) Chronic obstructive lung disease (01/08/09) Depression (10/26/17) DM type 2 (diabetes mellitus, type 2) Dysfunctional uterine bleeding (01/25/08) Gastroesophageal reflux disease Hyperlipidemia Lumbar disc prolapse with compression radiculopathy (01/25/08) S/P L4-5 disc herniation w/ nerve root impingement; L5 vertebral hemangioma; bilateral L5-S1 foraminal narrowing. Panic attack as reaction to stress (10/26/17) Stroke Tubular adenoma 05/15/11; DR. PORSCHE SHERMAN Surgical History H/O section x2 History of bilateral ligation of fallopian tubes LAPAROSCOPIC LYSIS OF ADHESIONS (12/20/12) DR. MYERS Status post cholecystectomy Family History Mother No problems noted. 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 Pets and animals: Yes Pets and animals: cat(s) Sexually active: No What is your relationship status?: refused to answer How often do you talk on the phone with friends or family?: twice per week How often do you get together with friends or relatives?: never How often do you attend amish or christian services?: decline to answer Do you belong to any clubs or organized social groups?: no Panel score (0-1 are the most socially isolated patients): 0 What type of physical activity do you participate in: walking Duration: < 15 minutes/day Frequency: 5-6 times per week Ofelia/Zoroastrian: No preference Seatbelt use: always Helmet use: No Drive intox or ride w/intox special education bus driver: No Do you feel safe at home: Yes Do you feel safe in your relationship?: Yes Exam Const General: cooperative and no acute distress HENMT Mouth: moist mucous membranes Eyes Conjunctivae: normal conjunctivae Sclera: normal sclerae Pupils: PERRL EOM: EOM intact bilaterally Neck Neck: trachea midline and supple Resp Auscultation: clear to auscultation bilaterally, no rales, no rhonchi and no wheezes Cardio Rate: regular rate and not tachycardic Rhythm: regular rhythm GI Palpation: soft, not firm, no guarding, no masses, not rigid and nontender Skin General skin exam: no rashes or lesions noted Neuro General: patient alert, patient awake, patient oriented x3 and tone normal Cognition: normal cognition Speech: speech normal Motor: strength 5/5 throughout (Lower extremities) Sensory Exam: no sensory deficits noted Other: Mild left facial weakness Extrem General: no edema Psych Appearance: grossly normal Mental Status: mental status grossly normal Speech and Movement: speech and movement normal Course Vital Signs Vital signs: Vital Signs Temperature 36.7 C 01/24/21 16:46 Pulse 85 01/24/21 16:46 Respiratory Rate 20 01/24/21 16:46 Blood Pressure 174/71 H 01/24/21 16:46 Pulse Oximetry 97 01/24/21 16:46 Temperature 36.7 C 01/24/21 16:46 Temperature Source Temporal Artery Scan 01/24/21 16:46 Pulse 85 01/24/21 16:46 Respiratory Rate 20 01/24/21 16:46 Blood Pressure 174/71 H 01/24/21 16:46 Blood Pressure Position Sitting 01/24/21 16:46 Pulse Oximetry 97 01/24/21 16:46 Oxygen Delivery Method Room Air 01/24/21 16:46 Oxygen Flow Rate 0 01/24/21 16:46 Pain Level 9 01/24/21 16:46
[2021-01-24] MEDS: HYDROmorphone 2 MG/ML VIAL 1 MG IVP (17:08)
[2021-01-24 17:10] LABS: Abs Immature Grans 0.05 10^3/uL (0.0-0.06); Absolute Basophil Count 0.11 10^3/uL (0.0-0.2); Absolute Eosinophil Count 0.32 10^3/uL (0.0-0.7); Absolute Lymphocyte Count 4.98 10^3/uL (1.2-3.4); Absolute Monocyte Count 0.91 10^3/uL (0.1-0.8); Absolute Neutrophil Count 5.95 10^3/uL (1.2-6.7); Basophils % 0.9; Eosinophils % 2.6; HCT 46.3 % (36.0-46.0); HGB 15.3 g/dL (11.2-15.7); Immature Grans % 0.4; Lymphocytes % 40.4; MCH 30.3 pg (27.0-33.0); MCV 91.7 fL (80-95); MPV 10.5 fL (8.0-11.0); Monocytes % 7.4; Neutrophils % 48.3; Nucleated RBC 0 %; Platelet Count 227 10^3/uL (130-400); RBC 5.05 10^6/uL (3.93-5.22); RDW 14.7 % (11.7-14.6); WBC 12.32 10^3/uL (4.4-10.8)
[2021-01-24 17:14] LABS: Prothrombin Time 10.4 sec (9.3-11.0)
[2021-01-24] MEDS: Lactated Ringers 1,000 ML 125 ML IV (17:16)
--- NOTE | 2021-01-24 17:17 | DI.VRAD_ITS ---
PROCEDURE INFORMATION: Exam: CT Head Without Contrast Exam date and time: 01/24/2021 4:44 PM Age: 65 years old Clinical indication: Pain; Other: Left sided headache TECHNIQUE: Imaging protocol: Computed tomography of the head without contrast. COMPARISON: CT HEAD WO 04/23/2020 7:58 AM FINDINGS: Brain: No hemorrhage. No acute large territorial infarct. No mass effect. Cerebral ventricles: No ventriculomegaly. Bones/joints: No displaced calvarial fracture. Paranasal sinuses: Visualized sinuses are unremarkable. No fluid levels. Mastoid air cells: Visualized mastoid air cells are well aerated. Soft tissues: Unremarkable. IMPRESSION: No acute intracranial abnormality. Dictated and Authenticated by: Inessa Perez MD. Ordering:ANALIA Milton MD
[2021-01-24 17:18] LABS: ALT 44 U/L (14-59); AST 20 U/L (15-37); Albumin 3.9 g/dL (3.4-5.0); Alkaline Phosphatase 84 U/L (46-116); Anion Gap 13.8 mmol/L (3-11); BUN 20 mg/dL (7-18); Bilirubin, Total 0.3 mg/dL (0.2-1.0); CO2 25.2 mmol/L (21.0-32.0); CREATININE 0.9 mg/dL (0.55-1.02); Chloride 102 mmol/L (98-107); Glucose 160 mg/dL (74-106); Potassium 4.1 mmol/L (3.5-5.1); Sodium 141 mmol/L (136-145); Total Protein 8.3 g/dL (6.4-8.2)
--- NOTE | 2021-01-24 17:30 | DI.CT_ITS ---
Exam(s) CT BRAIN NECK CTA EXAM: CT BRAIN NECK CTA CLINICAL HISTORY: left sided DOWNING, left facial weakness worse. TECHNIQUE: Imaging Protocol: Axial CT angiography was performed with multi-slice acquisition and mu lti-planar and/or 3D reconstructions. CONTRAST MATERIAL: Intravenous: Omnipaque 350 Contrast volume:structured data in ml COMPARISON: CT CT HEAD - STROKE PROTOCOL from 01/24/2021 FINDINGS: The examination is limited due to patient motion artifact. CT Head w: Ventricles and Extra axial spaces: Normal in size and morphology for the patient's age. Hemorrhage: None. Cerebral parenchyma: Normal. Midline shift: None. Brainstem/Cerebellum: Normal. Calvarium: Normal. Visualized Paranasal sinuses/Mastoids: Clear. Soft Tissues: Unremarkable. Enhancement: Unremarkable. CTA Neck W: Common Carotid: Right: No dissection, occlusion or significant stenosis. Left: No dissection, occlusion or significant stenosis. Mild atherosclerosis at the distal common ca rotid artery. External Carotid: Right: No occlusion or significant stenosis. Left: No occlusion or significant stenosis. Internal Carotid: Right: No dissection, occlusion or significant stenosis. Mild atherosclerosis at the proximal automotive internet sales manager al carotid artery. Left: No dissection, occlusion or significant stenosis. Mild atherosclerosis of the proximal interna l carotid artery. Vertebral Artery: Right: No dissection, occlusion or significant stenosis. Mild atherosclerosis. Left: No dissection, occlusion or significant stenosis. Mild atherosclerosis. There is severe stenosis of the proximal left subclavian artery. Lung Apices: Normal. Bones: Yhyo-tv-tckdazze degenerative changes in the cervical spine. Soft Tissues: Normal. Thyroid gland: There is a 0.8 cm hypodense nodule in the left lobe of the thyroid gland. No suspicio us findings are seen. No follow-up is recommended. CTA Brain W: Internal Carotid Arteries: Petrous: Normal. Cavernous: Atherosclerosis. No significant stenosis or occlusion. Cerebral: Normal. Anterior Cerebral Arteries: Right: No aneurysm, occlusion or significant stenosis. Left: No aneurysm, occlusion or significant stenosis. Middle Cerebral Arteries: Right: No aneurysm, occlusion or significant stenosis. Left: No aneurysm, occlusion or significant stenosis. Posterior cerebral Arteries: Right: No aneurysm, occlusion or significant stenosis. Left: No aneurysm, occlusion or significant stenosis. There is a origin of the left UNHAIRING INSPECTOR which is a normal variant. Vertebral Arteries: Right: No aneurysm, occlusion or significant stenosis. Left: No aneurysm, occlusion or significant stenosis. There is a dominant left vertebral artery. Basilar Artery: No aneurysm, occlusion or significant stenosis. IMPRESSION: 1. Normal CTA examination of the [place]. 2. Unremarkable contrast CT Head. 3. Severe stenosis of the proximal left subclavian artery. 4. No other significant stenosis is seen on the CT angiography of the neck. 5. 0.8 cm left thyroid nodule. No follow-up is recommended. In patients >18 years with an incidental thyroid nodule (ITN) detected on CT,MRI, or extrathyroidal u ltrasound, no further evaluation is recommended if the nodule is 1 cm or less and has no suspicious i maging features. In patients<35 years with an (ITN) detected on CT, MRI, or extrathyroidal ultrasound, further evaluat ion with dedicated thyroid ultrasound is recommended if the nodule > 1 cm and has no suspicious imaga ing features, and if the patient has normal life expectancy. In patients >35 years with an ITN detected on CT MRI or extrathyroidal ultrasound, further evaluation with dedicated thyroid ultrasound is recommended if the nodule is > 1.5 cm and has no suspicious cj ging features, and if the patient has normal life expenctancy. (BHAVESH, 2009 and ACR, 2014) RADIATION DOSE DELIVERED: 1,270.87mGy.cm Total DLP DATA REPOSITORY: All CT scans at this facility are submitted to the National Radiology Data Registry (NRDR) Dose Index Registry (DIR) with the [employer] (ACR). RADIATION OPTIMIZATION: All CT scans at this facility use at least one of these dose optimization te chniques: automated exposure control; mA and/or kV adjustment per patient size (includes targeted exa ms where dose is matched to clinical indication); or iterative reconstruction.
[2021-01-24] MEDS: Prochlorperazine 10 MG/2 ML VIAL IVP (18:13)
[2021-01-24] MEDS: diphenhydrAMINE 50 MG/ML VIAL 25 MG IVP (18:14)
[2021-01-24] MEDS: Normal Saline 100 ML (18:15)
[2021-01-24] MEDS: Omnipaque 350 MG/ML 100 ML BTL 85 ML IV (19:01)
--- NOTE | 2021-01-24 19:38 | DI.VRAD_ITS ---
PROCEDURE INFORMATION: Exam: CT Angiography Head With Contrast, Arteriography Exam date and time: 01/24/2021 6:39 PM Age: 65 years old Clinical indication: Pain; Patient HX: Left sided headache with left facial weakness TECHNIQUE: Imaging protocol: Computed tomography angiography of the head with contrast. Exam focused on the arteries. 3D rendering (Not supervised by radiologist): MIP and/or 3D reconstructed images were created by the technologist. Radiation optimization: All CT scans at this facility use at least one of these dose optimization techniques: automated exposure control; mA and/or kV adjustment per patient size (includes targeted exams where dose is matched to clinical indication); or iterative reconstruction. Contrast material: [id number]; Contrast volume: 85 ml; Contrast route: INTRAVENOUS (IV); COMPARISON: CT HEAD - STROKE PROTOCOL 01/24/2021 5:03 PM and 04/23/20. FINDINGS: ANTERIOR CIRCULATION: Right internal carotid artery: Unremarkable. Intracranial segment is patent with no significant stenosis. No aneurysm. Right middle cerebral artery: Unremarkable. No occlusion or significant stenosis. No aneurysm. Right anterior cerebral artery: Unremarkable. No occlusion or significant stenosis. No aneurysm. Left internal carotid artery: Unremarkable. Intracranial segment is patent with no significant stenosis. No aneurysm. Left middle cerebral artery: Unremarkable. No occlusion or significant stenosis. No aneurysm. Left anterior cerebral artery: Unremarkable. No occlusion or significant stenosis. No aneurysm. POSTERIOR CIRCULATION: Right vertebral artery: Mild stenosis versus reduced flow distal right vertebral artery. Left vertebral artery: Unremarkable. No occlusion or significant stenosis. No aneurysm. Basilar artery: Unremarkable. No occlusion or significant stenosis. No aneurysm. Right posterior cerebral artery: Unremarkable. No occlusion or significant stenosis. No aneurysm. 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 Brain: No definite mass, mass effect, or midline shift. Cerebral ventricles: No ventriculomegaly. Bones/joints: There is asymmetric thickening of the left torus tubarius not appreciated on study dated 04/23/2020. Soft tissues: Unremarkable. IMPRESSION: 1. Mild asymmetric thickening of the left torus to bar , new from prior study. Consider possible inflammatory process. Follow-up recommended. 2. No evidence for acute intracranial vascular abnormality. PROCEDURE INFORMATION: Exam: CT Angiography Neck With Contrast Exam date and time: 01/24/2021 6:39 PM Age: 65 years old Clinical indication: Pain; Patient HX: Left sided headache with left facial weakness TECHNIQUE: Imaging protocol: Computed tomography angiography of the neck with contrast. 3D rendering (Not supervised by radiologist): MIP and/or 3D reconstructed images were created by the technologist. Radiation optimization: All CT scans at this facility use at least one of these dose optimization techniques: automated exposure control; mA and/or kV adjustment per patient size (includes targeted exams where dose is matched to clinical indication); or iterative reconstruction. Contrast material: [id number]; Contrast volume: 85 ml; Contrast route: INTRAVENOUS (IV); COMPARISON: CT HEAD - STROKE PROTOCOL 01/24/2021 5:03 PM FINDINGS: Right common carotid artery: No stenosis. No dissection or occlusion. Right internal carotid artery: Mixed attenuation plaque proximal right ICA. Mild stenosis. Right external carotid artery: No occlusion or stenosis of the origin. Right vertebral artery: There may be reduced flow distal right vertebral artery. Possible stenosis versus reduced flow distal right vertebral artery. Left common carotid artery: No stenosis. No dissection or occlusion. Left internal carotid artery: Mild plaque mid left ICA. Left external carotid artery: No occlusion or stenosis of the origin. Left vertebral artery: There may be mild stenosis mid left vertebral artery series 4, image 52. Subclavian arteries: Severe stenosis proximal left subclavian artery series 4, images 22-26. Other vasculature: Respiratory motion noted. Thyroid: Low-density left thyroid lesion 6 mm. Bones/joints: No acute fracture. Soft tissues: Normal. No significant soft tissue swelling. Lungs: There is hazy, ground-glass change seen in the lung apices, patchy. IMPRESSION: 1. The severe stenosis proximal left subclavian artery. 2. Mild proximal right and mid left ICA stenosis. REFERENCES: NASCET CRITERIA. The degree of internal carotid artery stenosis is based on NASCET criteria. Normal is no stenosis. Mild is less than 50% stenosis. Moderate is 50-69% stenosis. Severe is 70% to 99% stenosis. Total occlusion is no detectable patent lumen. Dictated and Authenticated by: Johana Estrada MD. Ordering:ANALIA Milton MD
[2021-01-24 20:53] LABS: Source Nasal/Nares
[2021-01-24] MEDS: Normal Saline 1,000 ML 80 ML IV (22:20)
[2021-01-24] MEDS: Atorvastatin 20 MG TAB PO (22:21)
[2021-01-24] MEDS: Heparin 5,000 UNITS/ML VIAL 5000 UNITS SC (22:21)
[2021-01-24 22:35] LABS: Magnesium 2.1 mg/dL (1.8-2.4)
--- NOTE | 2021-01-24 22:41 | HPE_ITS ---
Date of service: 01/24/21 Time of Service: 22:41 Assessment and Plan Assessment and plan (1) Headache: Status: Acute Assessment and plan: Has h/o headaches; somewhat daily but typically not intense. Current DOWNING started the day prior to admission. Improved with tx in the ED. Cont prn dilaudid, compazine, tylenol. MRI ordered for tomorrow. Qualifiers: Headache type: unspecified Headache chronicity pattern: chronic headache Intractability: intractable Qualified Code(s): R51.9 - Headache, unspecified; G89.29 - Other chronic pain (2) Peripheral vascular disease of extremity with claudication: Status: Acute Assessment and plan: She has appt for evaluation in the near future. (3) Chronic obstructive lung disease: Status: Acute Assessment and plan: Not on medications at home. No current complaint of SOA, cough/sputum. PRN Duonebs. (4) Depression: Status: Acute Assessment and plan: Cont citalopram. (5) Left facial numbness: Status: Acute Assessment and plan: Residual from previous CVA. Subjectivally feels more weak with current DOWNING. CT head w/o acute findings. MRI ordered. (6) Stroke: Status: Chronic Assessment and plan: Cont Plavix and Atorvastatin. CT head w/o acute findings. MRI ordered. (7) DM type 2 (diabetes mellitus, type 2): Status: Acute Assessment and plan: Cont Jardiance Hold metformin and glipizide. Monitor glucose. Diabetic diet. (8) Tobacco dependence: Status: Acute Assessment and plan: Offer nicoderm patch or other nicotine replacement product if desired. History of Present Illness History of Present Illness Chief Complaint: Headache Narrative: This is a 65 yo female with a PMH of CVA (multiple), headaches, COPD DM2, GERD, HLD. She presented with a DOWNING that began the day prior to admission and was worseing. She rated the pain as a 9/10. Pain located in the left frontal region. She has also noted increased weakness in the left face; beyond her chronic residual weakness s/p CVA. Also a tingling sensation in the left face. No N/V, F/C, visual changes. No confusion noted. CT head w/o any acute findings. She was given IV dilaudid and Zofran given initially. Subsequently she also received IV compazine and benadryl. Her DOWNING had improved once she was brought to the med-surg unit. Review of Systems All systems reviewed & are unremarkable except as noted in HPI and below PFSH Medical History Alcohol intake above recommended sensible limits Chronic left hip pain (02/05/18) Chronic obstructive lung disease (01/08/09) Depression (10/26/17) DM type 2 (diabetes mellitus, type 2) Dysfunctional uterine bleeding (01/25/08) Gastroesophageal reflux disease Hyperlipidemia Lumbar disc prolapse with compression radiculopathy (01/25/08) S/P L4-5 disc herniation w/ nerve root impingement; L5 vertebral hemangioma; bilateral L5-S1 foraminal narrowing. Panic attack as reaction to stress (10/26/17) Stroke Tubular adenoma 05/15/11; DR. PORSCHE SHERMAN Surgical History H/O section x2 History of bilateral ligation of fallopian tubes LAPAROSCOPIC LYSIS OF ADHESIONS (12/20/12) DR. MYERS Status post cholecystectomy Family History Mother No problems noted. 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 Pets and animals: Yes Pets and animals: cat(s) Sexually active: No What is your relationship status?: refused to answer How often do you talk on the phone with friends or family?: twice per week How often do you get together with friends or relatives?: never How often do you attend mandaen or methodist services?: decline to answer Do you belong to any clubs or organized social groups?: no Panel score (0-1 are the most socially isolated patients): 0 What type of physical activity do you participate in: walking Duration: < 15 minutes/day Frequency: 5-6 times per week Ofelia/Mormonism: No preference Seatbelt use: always Helmet use: No Drive intox or ride w/intox snaker tractor driver: No Do you feel safe at home: Yes Do you feel safe in your relationship?: Yes Meds Allergies and Home Medications Allergies Allergy/AdvReac Type Severity Reaction Status Date / Time omeprazole [From Prilosec] AdvReac Unknown diarrhea Verified 11/22/20 10:35 Home Medications Medication Instructions Recorded Confirmed Type Blood Glucose Test #100 each NS 05/09/20 11/22/20 Rx atorvastatin 20 mg tablet 20 mg PO QHS #90 tab 05/09/20 01/24/21 Rx blood-glucose meter #1 each 05/09/20 11/22/20 Rx empagliflozin 25 mg tablet 25 mg PO QAM #90 tab 05/09/20 11/22/20 Rx glipizide 5 mg tablet, extended 5 mg PO BID #180 tab-cap 05/09/20 01/24/21 Rx release 24 hr lancets 28 gauge #100 ea 05/09/20 11/22/20 Rx clopidogrel 75 mg tablet 75 mg PO DAILY #90 tab 07/16/20 01/24/21 Rx metformin 500 mg tablet,extended 1,000 mg PO BID tab 10/01/20 01/24/21 History release 24 hr blood pressure monitor #1 ea 10/02/20 11/22/20 Rx citalopram 20 mg tablet 40 mg PO DAILY #60 tab 11/02/20 01/24/21 Rx verapamil 40 mg tablet 40 mg PO DAILY #90 tab 11/14/20 01/24/21 Rx fluconazole 150 mg tablet 150 mg PO ONCE #2 tab 11/22/20 Rx Exam Const General: cooperative, no acute distress and well developed Nutritional Appearance: overweight Orientation: alert and oriented x3 [facility] Head: normocephalic and atraumatic Eyes Sclera: sclerae normal Pupils: PERRL Neck Neck: normal visual inspection and full ROM Resp Effort & Inspection: normal respiratory effort Auscultation: clear to auscultation bilaterally Cardio Rate: regular rate Rhythm: regular rhythm Heart Sounds: S1 normal and S2 normal GI Palpation: soft and nontender Auscultation: normal bowel sounds Skin General skin exam: no rashes or lesions noted Neuro General: moves all extremities and other (mild left facial weakness) Cranial Nerves: PERRL, hearing normal, able to rotate head bilaterally and able to elevate shoulders bilaterally Cognition: normal cognition Speech: speech normal (mild slurring; chronic per pt.) Extrem General: no pedal edema and no calf tenderness Psych Mental Status: mental status grossly normal Mood: congruent mood Affect: normal affect Results Labs Result diagrams: 01/24/21 16:45 01/24/21 16:45 Labs: Laboratory Results - last 24 hr 01/24/21 01/24/21 01/24/21 16:45 16:45 16:45 WBC 12.32 H RBC 5.05 Hgb 15.3 Hct 46.3 H MCV 91.7 MCH 30.3 MCHC 33.0 RDW 14.7 H Plt Count 227 MPV 10.5 Immature Gran % 0.4 Neutrophils % 48.3 Lymphocytes % 40.4 Monocytes % 7.4 Eosinophils % 2.6 Basophils % 0.9 Nucleated RBC % 0 Absolute Neutrophils 5.95 Absolute Lymphocytes 4.98 H Absolute Monocytes 0.91 H Absolute Eosinophils 0.32 Absolute Basophils 0.11 PT 10.4 INR 1.0 Sodium 141 Potassium 4.1 Chloride 102 Carbon Dioxide 25.2 Anion Gap 13.8 H BUN 20 H Creatinine 0.9 Estimated GFR/1.73 m2 >= 60.00 Glucose 160 H Calcium 9.0 Magnesium Total Bilirubin 0.3 AST 20 ALT 44 Alkaline Phosphatase 84 Total Protein 8.3 H Albumin 3.9 COVID-19 Source 01/24/21 01/24/21 16:45 20:45 WBC RBC Hgb Hct MCV MCH MCHC RDW Plt Count MPV Immature Gran % Neutrophils % Lymphocytes % Monocytes % Eosinophils % Basophils % Nucleated RBC % Absolute Neutrophils Absolute Lymphocytes Absolute Monocytes Absolute Eosinophils Absolute Basophils PT INR Sodium Potassium Chloride Carbon Dioxide Anion Gap BUN Creatinine Estimated GFR/1.73 m2 Glucose Calcium Magnesium 2.1 Total Bilirubin AST ALT Alkaline Phosphatase Total Protein Albumin COVID-19 Source Nasal/nares Last Vital Signs Temp 36.7 C 01/24/21 22:04 Pulse 81 01/24/21 22:04 Resp 18 01/24/21 22:04 BP 152/76 H 01/24/21 22:04 Pulse Ox 98 01/24/21 22:04 COVID-19 Screening Have you, or household traveled for leisure in last 14 days?: No Had IN PERSON contact w/suspected or confirmed C-19 person: No
--- NOTE | 2021-01-25 | DI.MRI_ITS ---
Exam(s) MR BRAIN WO EXAM: MR BRAIN WO CLINICAL HISTORY: H/O CVAs. Worsening DOWNING and facial paresthesia. TECHNIQUE: Multiplanar multisequence MRI of the brain was performed. COMPARISON: MR MR BRAIN WO/W from 04/30/2020 FINDINGS: VENTRICLES AND EXTRA AXIAL SPACES: Normal in size and morphology for the patient's age. MIDLINE SHIFT: None. CEREBRAL PARENCHYMA: No focus of restricted diffusion to suggest acute infarct. No space-occupying le gurjit identified. There are areas of hyperintense signal in the white matter on the FLAIR and T2 weigh bill images most consistent with chronic microvascular ischemic change. There is a small area of ence phalomalacia involving the posterior left parietal lobe which may represent an old infarct. HEMORRHAGE: None. BRAINSTEM/CEREBELLUM: Normal. CALVARIUM: Normal. VISUALIZED PARANASAL SINUSES/MASTOIDS:Clear. [place]: Normal flow void. PITUITARY GLAND: Unremarkable. OTHER FINDINGS: None. IMPRESSION: 1. No evidence of an acute infarct or intracranial mass. 2. Findings of microvascular ischemic change. DATA REPOSITORY:
[2021-01-25 00:11] LABS: COVID-19 PCR Negative (Negative)
[2021-01-25 03:35] VITALS: BP 110/61; PULSE 85; RESP 18; TEMP 36.4; O2SAT 97
[2021-01-25] MEDS: HYDROmorphone 2 MG/ML VIAL 0.5 MG IVP ×2 (05:02→14:52)
[2021-01-25] MEDS: Prochlorperazine 10 MG/2 ML VIAL 5 MG IVP (05:08)
[2021-01-25] MEDS: Heparin 5,000 UNITS/ML VIAL 5000 UNITS SC ×2 (05:42→14:36)
[2021-01-25 07:18] LABS: Abs Immature Grans 0.03 10^3/uL (0.0-0.06); Absolute Basophil Count 0.07 10^3/uL (0.0-0.2); Absolute Eosinophil Count 0.16 10^3/uL (0.0-0.7); Absolute Lymphocyte Count 3.06 10^3/uL (1.2-3.4); Absolute Monocyte Count 0.67 10^3/uL (0.1-0.8); Absolute Neutrophil Count 6.27 10^3/uL (1.2-6.7); Basophils % 0.7; Eosinophils % 1.6; HCT 44.1 % (36.0-46.0); HGB 14.6 g/dL (11.2-15.7); Immature Grans % 0.3; Lymphocytes % 29.8; MCH 30.2 pg (27.0-33.0); MCHC 33.1 % (32.0-36.0); MCV 91.3 fL (80-95); MPV 10.9 fL (8.0-11.0); Monocytes % 6.5; Neutrophils % 61.1; Nucleated RBC 0 %; Platelet Count 211 10^3/uL (130-400); RBC 4.83 10^6/uL (3.93-5.22); RDW 14.7 % (11.7-14.6); RDW-SD 49.8 fL; WBC 10.26 10^3/uL (4.4-10.8)
[2021-01-25 07:29] LABS: BUN 18 mg/dL (7-18); CREATININE 0.8 mg/dL (0.55-1.02); Calcium 8.5 mg/dL (8.5-10.1); Chloride 103 mmol/L (98-107); Glucose 171 mg/dL (74-106); Potassium 3.9 mmol/L (3.5-5.1); Sodium 129 mmol/L (136-145)
[2021-01-25 07:50] VITALS: BP 107/67; PULSE 88; RESP 18; TEMP 36.9; O2SAT 95
[2021-01-25] MEDS: Verapamil 80 MG TAB 40 MG PO (07:57)
[2021-01-25] MEDS: Citalopram 20 MG TAB 40 MG PO (07:58)
[2021-01-25] MEDS: Clopidogrel 75 MG TAB PO (07:58)
--- NOTE | 2021-01-25 10:30 | INITIAL_ITS ---
- If Service Date Differs Date of service: 01/25/21 Time of Service: 10:30 Care Management Initial Assess REASON FOR HOSPITALIZATION:: Headache PAST MEDICAL HISTORY/PAST SURGICAL HISTORY:: Medical History . Alcohol intake above recommended sensible limits. Chronic left hip pain (02/05/18). Chronic obstructive lung disease (01/08/09). Depression (10/26/17). DM type 2 (diabetes mellitus, type 2). Dysfunctional uterine bleeding (01/25/08). Gastroesophageal reflux disease. Hyperlipidemia. Lumbar disc prolapse with compression radiculopathy (01/25/08). S/P L4-5 disc herniation w/ nerve root impingement; L5 vertebral hemangioma; bilateral L5-S1 foraminal narrowing. Panic attack as reaction to stress (10/26/17). Stroke. Tubular adenoma. 05/15/11; DR. PORSCHE SHERMAN. Surgical History . H/O section. x2. History of bilateral ligation of fallopian tubes. LAPAROSCOPIC LYSIS OF ADHESIONS (12/20/12). DR. MYERS. Status post cholecystectomy PREVIOUS FUNCTIONAL STATUS/SOCIAL/FAMILY SUPPORTS:: Kera lives alone in an apartment in [place], [place]. She has 2 children who live locally, a son and a daughter, and 4 grandchildren. She states that the family is very close and supportive. 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 She is independent at baseline and receives no community services. CURRENT FUNCTIONAL STATUS:: Kera was lying in bed when CM met with her. She was pleasant and agreeable to conversation with CM. She shared that she still has a headache but that it is not too bad if she lies still. She stated that she gets them frequently. Kera will likely discharge later today if her headache subsides. ADVANCE DIRECTIVES:: none on file Has patient been provided with info about the portal/API?: Yes Did the patient sign up for the portal?: Yes (previously) CODE STATUS:: Full Code INSURANCE COVERAGE / FINANCIAL ISSUES:: Medicare. Medicaid. Financial Assist 100 PRIMARY CARE PHYSICIAN:: Wilbert Rm POTENTIAL DISCHARGE NEEDS:: Follow up with PCP and discharge plan of care PATIENT/FAMILY EDUCATION NEEDS:: Review of discharge instructions, medications, limitations, follow up plan, Ask Me Three TRANSPORTATION:: via private vehicle with friend/family PLAN:: Kera will likely be discharged with no new services. She will folllow up with her PCP and with Dr. Owusu next week. CM will continue to support Kera and her discharge needs.
[2021-01-25] MEDS: Normal Saline 1,000 ML 80 ML IV (11:10)
[2021-01-25 11:53] VITALS: BP 119/68; PULSE 78; RESP 17; TEMP 37.1; O2SAT 94
[2021-01-25] MEDS: SUMAtriptan 25 MG TAB PO (12:07)
--- NOTE | 2021-01-25 14:15 | W.PM.DS.N ---
Date of service: 01/25/21 Time of Service: 14:16 DS: Diagnosis Discharge Diagnosis (1) Headache: Start date: 01/25/21 Start time: 14:17 Status: Acute Asessment and Plan: Has h/o headaches; somewhat daily but typically not intense usually she will usually take tylenol or ibuprofen however this time it did not work. She was admitted and given dilaudid IV Trialled on imitrex with good results MRI reveals no acute infarct small chronic microvessel ischemic changes She stated she had never seen neurology in the past despite four CVA's she does have an appt with Dr. Schmitt on Thrusday; and there does appear to be a note in the chart from Dr.Van stevens from 05/17 in which she states new onset daily downing. It appears she was also started on verapamil at that time as well and likely this dose could be tapered up or changed for prevention Discharge home on imitrex regimen with Aleve and neuro follow up. CTA revealing Bones/joints: There is asymmetric thickening of the left torus tubarius not appreciated on study dated 04/23/2020. Soft tissues: Unremarkable. IMPRESSION: 1. Mild asymmetric thickening of the left torus to bar , new from prior study. Consider possible inflammatory process. Follow-up recommended. 2. No evidence for acute intracranial vascular abnormality. She could have fluid in her ear as well which could be contributing to DOWNING, will prescribe zyrtec to see if this helps. (2) Peripheral vascular disease of extremity with claudication: Start date: 01/25/21 Start time: 14:30 Status: Acute Asessment and Plan: She has appt for evaluation in the near future. (3) Chronic obstructive lung disease: Start date: 01/25/21 Start time: 14:30 Status: Chronic Asessment and Plan: No PFT's in the chart Not on any medication No c/o SOB (4) Depression: Start date: 01/25/21 Start time: 14:31 Status: Chronic Asessment and Plan: Cont citalopram (5) Left facial numbness: Start date: 01/25/21 Start time: 14:31 Status: Chronic Asessment and Plan: Only residual from previous CVA (6) Stroke: Start date: 01/25/21 Start time: 14:31 Status: Chronic Asessment and Plan: Continue statin, DM control plavix, she should take asa 81 mg in addition to plavix but I do not see this on her Home med list will defer to neuro for further management. (7) DM type 2 (diabetes mellitus, type 2): Start date: 01/25/21 Start time: 14:36 Status: Chronic Asessment and Plan: BGL 171 by am labs A1c 7.0 down from 7.2 (8) Tobacco dependence: Start date: 01/25/21 Start time: 14:37 Status: Chronic Asessment and Plan: Smoking cessation would be her best benefit overall along with healthier diet and exercise. At this time she is not interested. continue to educate on the benefits of smoking cessation above case discussed with Dr. Colón Discharge Plan Disposition Patient Disposition: HOME Condition: Improving Discharge Details Reason For Visit: HEADACHE,LEFT FACIAL WEAKNESS Admit Date/Time: 01/24/21 20:18 Admit Provider: Cesar Simmons Attending Provider: Cesar Simmons Primary Care Provider: Wilbert Gallegos [facility] Hospital Course: This is a 65 yo female with a PMH of CVA (multiple), headaches, COPD DM2, GERD, HLD. She presented with a DOWNING that began the day prior to admission and was worsening. She rated the pain as a 9/10. Pain located in the left frontal region. She has also noted increased weakness in the left face; beyond her chronic residual weakness s/p CVA. Also a tingling sensation in the left face. No N/V, F/C, visual changes. No confusion noted. CT head revealing There is asymmetric thickening of the left torus tubarius not appreciated on study dated 04/23/2020. She was given zofran, IV dilaudid, in the ED, then IV compazine and benadryl. DOWNING improved and she was admitted to m/s. By morning DOWNING returned and she was given a second dose of IV dialudid with compazine. When evaluated by this provider she was feeling like her DOWNING was mildly improved. She stated no visual issues. Imitrex was trialled and she stated after MRI her DOWNING was almost gone. She did see Dr. Schimtt in 04/2020 for DOWNING and was started on medication then. She was also placed on verapamil with plavix in addition to asa. At this time I do not see asa on her med list. She has vascular issues, continues to smoke, she should continue both asa and plavix due to history. She is feeling better and would like to be discharged home. MRI was negative for acute infarct or intracranial mass. Findings of microvascular ischemic change. She has a f/u with Dr. Schmitt per patient on . Recommend she keeps appointment. She should quit smoking this will multi-benefitial. Will discharge home with prescription for zyrtec and imitrex. She denies CP, SOB, N/v/D. Home Meds and New Rx's Prescriptions: New sumatriptan succinate [Imitrex] 50 mg tablet 50 mg PO ONCE Qty: 10 RF: 0 Zyrtec 10 mg capsule 10 mg PO DAILY Qty: 30 RF: 0 aspirin 81 mg tablet,delayed release (DR/EC) 81 mg PO DAILY Qty: 30 RF: 0 prochlorperazine maleate [Compazine] 5 mg tablet 5 mg PO QID PRNQty: 30 RF: 0 Continued clopidogrel [Plavix] 75 mg tablet 75 mg PO DAILY Qty: 90 RF: 3 verapamil 40 mg tablet 40 mg PO DAILY Qty: 90 RF: 2 metformin 500 mg tablet extended release 24 hr 1,000 mg PO BID RF: 0 citalopram 20 mg tablet 40 mg PO DAILY Qty: 60 RF: 11 atorvastatin 20 mg tablet 20 mg PO QHS Qty: 90 RF: 3 (DME) Blood Glucose Test Strip See Rx Instructions .ROUTE .MEDSUPPLY Qty: 100 RF: 11 (DME) blood-glucose meter Misc See Rx Instructions .ROUTE .MEDSUPPLY Qty: 1 RF: 0 Jardiance 25 mg tablet 25 mg PO QAM Qty: 90 RF: 3 glipizide 5 mg tablet extended release 24hr 5 mg PO BID Qty: 180 RF: 3 (DME) lancets [FreeStyle Lancets] 28 gauge misc 1 ea Miscellaneous DAILY Qty: 100 RF: 11 (DME) blood pressure monitor Kit See Rx Instructions .ROUTE .MEDSUPPLY Qty: 1 RF: 0 fluconazole 150 mg tablet 150 mg PO ONCE Qty: 2 RF: 0 Discharge Instructions Instructions: Cetirizine (By mouth), Sumatriptan (By mouth), How to Stop Smoking (DC), Cigarette Smoking and Your Health (GEN), Acute Headache (DC) Additional Instructions: Take compazine as needed for nausea and vomiting Take imitrex as needed for migraine/downing STOP Smoking this is most beneficial to your health Follow up with Dr. Schmitt as scheduled on MRI revealed no stroke Your A1c today was 7.0 Activity:: Activity as Tolerated Equipment/Supplies:: No Equipment Needed Diet:: Carb Counting Discharge Orders Discharge Orders: Discharge Order (Routine); Ordered 01/25/21 Ordered By: Rhiannon Bell DS: Summary Time Spent with Patient providing and/or coordinating discharge services: Greater than 30 minutes (approx 45 mins spent) Status at Discharge Functional status at discharge: independent ambulation Overall status at discharge: patient is back to baseline Mental Status: mental status grossly normal Speech and Movement: speech and movement normal Mood: congruent mood Affect: normal affect Exam Const General: cooperative, no acute distress and well developed Nutritional Appearance: overweight Orientation: alert and oriented x3 HENMT Head: normocephalic and atraumatic Eyes Sclera: sclerae normal Pupils: PERRL Neck Neck: normal visual inspection and full ROM Resp Effort & Inspection: normal respiratory effort Auscultation: clear to auscultation bilaterally Cardio Rate: regular rate Rhythm: regular rhythm Heart Sounds: S1 normal and S2 normal GI Palpation: soft and nontender Auscultation: normal bowel sounds Skin General skin exam: no rashes or lesions noted Neuro General: moves all extremities and other (mild left facial weakness) Cranial Nerves: PERRL, hearing normal, able to rotate head bilaterally and able to elevate shoulders bilaterally Cognition: normal cognition Speech: speech normal (mild slurring; chronic per pt.) Extrem General: no pedal edema and no calf tenderness Psych Mental Status: mental status grossly normal Speech and Movement: speech and movement normal Mood: congruent mood Affect: normal affect DS: Data Vitals/I&O Vitals and I&O: Vital Signs Temperature 37.1 C 01/25/21 11:53 Temperature Source Temporal Artery Scan 01/25/21 11:53 Pulse 78 01/25/21 11:53 Pulse Rhythm Regular 01/25/21 07:50 Pulse 87 01/24/21 19:50 Respiratory Rate 17 01/25/21 11:53 Respiratory Effort Non-Labored 01/25/21 07:50 Respiratory Depth Normal 01/25/21 07:50 Respiratory Pattern Normal 01/25/21 07:50 Blood Pressure 119/68 01/25/21 11:53 Blood Pressure Mean 81 01/24/21 19:45 Blood Pressure Position Sitting 01/24/21 16:46 Pulse Oximetry 94 01/25/21 11:53 Oxygen Delivery Method Room Air 01/25/21 11:53 Oxygen Flow Rate 0 01/25/21 11:53 Pain Level 6 01/25/21 12:07 Intake & Output 01/24/21 01/25/21 01/25/21 23:59 11:59 23:59 Intake Total 643.333 / 589.154 5159 / 1617.333 77.333 / 1617.333 Output Total 500 / 500 Balance 643.333 / 962.594 0060 / 1117.333 77.333 / 1117.333 Weight 80.4 kg 70.3 kg Intake: IV 643.333 / 173.108 0615 / 1077.333 77.333 / 1077.333 Oral 540 / 540 Output: Urine 500 / 500 Other: Urine Color Light Lupe Urine Appearance Cloudy Urine Odor Normal Voiding Methods Toilet Data Completed and Pending Completed studies during hospitalization [Text1]: Exam(s) PROCEDURE INFORMATION: Exam: CT Angiography Head With Contrast, Arteriography Exam date and time: 01/24/2021 6:39 PM Age: 65 years old Clinical indication: Pain; Patient HX: Left sided headache with left facial weakness TECHNIQUE: Imaging protocol: Computed tomography angiography of the head with contrast. Exam focused on the arteries. 3D rendering (Not supervised by radiologist): MIP and/or 3D reconstructed images were created by the technologist. Radiation optimization: All CT scans at this facility use at least one of these dose optimization techniques: automated exposure control; mA and/or kV adjustment per patient size (includes targeted exams where dose is matched to clinical indication); or iterative reconstruction. Contrast material: [id number]; Contrast volume: 85 ml; Contrast route: INTRAVENOUS (IV); COMPARISON: CT HEAD - STROKE PROTOCOL 01/24/2021 5:03 PM and 04/23/20. FINDINGS: ANTERIOR CIRCULATION: Right internal carotid artery: Unremarkable. Intracranial segment is patent with no significant stenosis. No aneurysm. Right middle cerebral artery: Unremarkable. No occlusion or significant stenosis. No aneurysm. Right anterior cerebral artery: Unremarkable. No occlusion or significant stenosis. No aneurysm. Left internal carotid artery: Unremarkable. Intracranial segment is patent with no significant stenosis. No aneurysm. Left middle cerebral artery: Unremarkable. No occlusion or significant stenosis. No aneurysm. Left anterior cerebral artery: Unremarkable. No occlusion or significant stenosis. No aneurysm. POSTERIOR CIRCULATION: Right vertebral artery: Mild stenosis versus reduced flow distal right vertebral artery. Left vertebral artery: Unremarkable. No occlusion or significant stenosis. No aneurysm. Basilar artery: Unremarkable. No occlusion or significant stenosis. No aneurysm. Right posterior cerebral artery: Unremarkable. No occlusion or significant stenosis. No aneurysm. 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 Brain: No definite mass, mass effect, or midline shift. Cerebral ventricles: No ventriculomegaly. Bones/joints: There is asymmetric thickening of the left torus tubarius not appreciated on study dated 04/23/2020. Soft tissues: Unremarkable. IMPRESSION: 1. Mild asymmetric thickening of the left torus to bar , new from prior study. Consider possible inflammatory process. Follow-up recommended. 2. No evidence for acute intracranial vascular abnormality. PROCEDURE INFORMATION: Exam: CT Angiography Neck With Contrast Exam date and time: 01/24/2021 6:39 PM Age: 65 years old Clinical indication: Pain; Patient HX: Left sided headache with left facial weakness TECHNIQUE: Imaging protocol: Computed tomography angiography of the neck with contrast. 3D rendering (Not supervised by radiologist): MIP and/or 3D reconstructed images were created by the technologist. Radiation optimization: All CT scans at this facility use at least one of these dose optimization techniques: automated exposure control; mA and/or kV adjustment per patient size (includes targeted exams where dose is matched to clinical indication); or iterative reconstruction. Contrast material: [id number]; Contrast volume: 85 ml; Contrast route: INTRAVENOUS (IV); COMPARISON: CT HEAD - STROKE PROTOCOL 01/24/2021 5:03 PM FINDINGS: Right common carotid artery: No stenosis. No dissection or occlusion. Right internal carotid artery: Mixed attenuation plaque proximal right ICA. Mild stenosis. Right external carotid artery: No occlusion or stenosis of the origin. Right vertebral artery: There may be reduced flow distal right vertebral artery. Possible stenosis versus reduced flow distal right vertebral artery. Left common carotid artery: No stenosis. No dissection or occlusion. Left internal carotid artery: Mild plaque mid left ICA. Left external carotid artery: No occlusion or stenosis of the origin. Left vertebral artery: There may be mild stenosis mid left vertebral artery series 4, image 52. Subclavian arteries: Severe stenosis proximal left subclavian artery series 4, images 22-26. Other vasculature: Respiratory motion noted. Thyroid: Low-density left thyroid lesion 6 mm. Bones/joints: No acute fracture. Soft tissues: Normal. No significant soft tissue swelling. Lungs: There is hazy, ground-glass change seen in the lung apices, patchy. IMPRESSION: 1. The severe stenosis proximal left subclavian artery. 2. Mild proximal right and mid left ICA stenosis. REFERENCES: NASCET CRITERIA. The degree of internal carotid artery stenosis is based on NASCET criteria. Normal is no stenosis. Mild is less than 50% stenosis. Moderate is 50-69% stenosis. Severe is 70% to 99% stenosis. Total occlusion is no detectable patent lumen. Exam(s) a MRI:MR brain wo Exam(s) MR BRAIN WO EXAM: MR BRAIN WO CLINICAL HISTORY: H/O CVAs. Worsening DOWNING and facial paresthesia. TECHNIQUE: Multiplanar multisequence MRI of the brain was performed. COMPARISON: MR MR BRAIN WO/W from 04/30/2020 FINDINGS: VENTRICLES AND EXTRA AXIAL SPACES: Normal in size and morphology for the patient's age. MIDLINE SHIFT: None. CEREBRAL PARENCHYMA: No focus of restricted diffusion to suggest acute infarct. No space-occupying lesion identified. There are areas of hyperintense signal in the white matter on the FLAIR and T2 weighted images most consistent with chronic microvascular ischemic change. There is a small area of encephalomalacia involving the posterior left parietal lobe which may represent an old infarct. HEMORRHAGE: None. BRAINSTEM/CEREBELLUM: Normal. CALVARIUM: Normal. VISUALIZED PARANASAL SINUSES/MASTOIDS:Clear. POARCH OF BRYANT: Normal flow void. PITUITARY GLAND: Unremarkable. OTHER FINDINGS: None. IMPRESSION: 1. No evidence of an acute infarct or intracranial mass. 2. Findings of microvascular ischemic change. Labs on day of discharge: Labs from last 24 hours 01/25/21 01/25/21 01/24/21 06:44 06:44 20:45 WBC 10.26 RBC 4.83 Hgb 14.6 Hct 44.1 MCV 91.3 MCH 30.2 MCHC 33.1 RDW 14.7 H Plt Count 211 MPV 10.9 Immature Gran % 0.3 Neutrophils % 61.1 Lymphocytes % 29.8 Monocytes % 6.5 Eosinophils % 1.6 Basophils % 0.7 Nucleated RBC % 0 Absolute Neutrophils 6.27 Absolute Lymphocytes 3.06 Absolute Monocytes 0.67 Absolute Eosinophils 0.16 Absolute Basophils 0.07 PT INR Sodium 129 L D Potassium 3.9 Chloride 103 Carbon Dioxide 25.0 Anion Gap 1.0 L BUN 18 Creatinine 0.8 Estimated GFR/1.73 m2 >= 60.00 Glucose 171 H Calcium 8.5 Magnesium Total Bilirubin AST ALT Alkaline Phosphatase Total Protein Albumin COVID-19 Source Nasal/nares SARS-CoV-2 (PCR) Negative 01/24/21 01/24/21 01/24/21 16:45 16:45 16:45 WBC 12.32 H RBC 5.05 Hgb 15.3 Hct 46.3 H MCV 91.7 MCH 30.3 MCHC 33.0 RDW 14.7 H Plt Count 227 MPV 10.5 Immature Gran % 0.4 Neutrophils % 48.3 Lymphocytes % 40.4 Monocytes % 7.4 Eosinophils % 2.6 Basophils % 0.9 Nucleated RBC % 0 Absolute Neutrophils 5.95 Absolute Lymphocytes 4.98 H Absolute Monocytes 0.91 H Absolute Eosinophils 0.32 Absolute Basophils 0.11 PT 10.4 INR 1.0 Sodium Potassium Chloride Carbon Dioxide Anion Gap BUN Creatinine Estimated GFR/1.73 m2 Glucose Calcium Magnesium 2.1 Total Bilirubin AST ALT Alkaline Phosphatase Total Protein Albumin COVID-19 Source SARS-CoV-2 (PCR) 01/24/21 16:45 WBC RBC Hgb Hct MCV MCH MCHC RDW Plt Count MPV Immature Gran % Neutrophils % Lymphocytes % Monocytes % Eosinophils % Basophils % Nucleated RBC % Absolute Neutrophils Absolute Lymphocytes Absolute Monocytes Absolute Eosinophils Absolute Basophils PT INR Sodium 141 Potassium 4.1 Chloride 102 Carbon Dioxide 25.2 Anion Gap 13.8 H BUN 20 H Creatinine 0.9 Estimated GFR/1.73 m2 >= 60.00 Glucose 160 H Calcium 9.0 Magnesium Total Bilirubin 0.3 AST 20 ALT 44 Alkaline Phosphatase 84 Total Protein 8.3 H Albumin 3.9 COVID-19 Source SARS-CoV-2 (PCR) [facility] Medical History Alcohol intake above recommended sensible limits Chronic left hip pain (02/05/18) Chronic obstructive lung disease (01/08/09) Depression (10/26/17) DM type 2 (diabetes mellitus, type 2) Dysfunctional uterine bleeding (01/25/08) Gastroesophageal reflux disease Hyperlipidemia Lumbar disc prolapse with compression radiculopathy (01/25/08) S/P L4-5 disc herniation w/ nerve root impingement; L5 vertebral hemangioma; bilateral L5-S1 foraminal narrowing. Panic attack as reaction to stress (10/26/17) Stroke Tubular adenoma 05/15/11; DR. PORSCHE SHERMAN Surgical History H/O section x2 History of bilateral ligation of fallopian tubes LAPAROSCOPIC LYSIS OF ADHESIONS (12/20/12) DR. MYERS Status post cholecystectomy Family History Mother No problems noted. 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 Pets and animals: Yes Pets and animals: cat(s) Sexually active: No What is your relationship status?: refused to answer How often do you talk on the phone with friends or family?: twice per week How often do you get together with friends or relatives?: never How often do you attend confucianist or quaker services?: decline to answer Do you belong to any clubs or organized social groups?: no Panel score (0-1 are the most socially isolated patients): 0 What type of physical activity do you participate in: walking Duration: < 15 minutes/day Frequency: 5-6 times per week [place]/Oriental Orthodox: No preference Seatbelt use: always Helmet use: No Drive intox or ride w/intox cryogenic transport driver: No Do you feel safe at home: Yes Do you feel safe in your relationship?: Yes
[2021-01-25 14:58] LABS: C-Reactive Protein < 0.05 mg/dL (0.0-0.3)
[2021-01-25 16:22] LABS: ESR 44 mm//hr (0-30)
== END 2021-01-25 15:58 | disposition home or self-care (01) | DRG 103 ==
LOC: ER 20:00 → MS 22:00
PROVIDERS: Admitting Provider Family Medicine; Emergency Provider Student in an Organized Health Care Education/Training Program; PCP Family Medicine; Visit Provider Family Medicine
DX: R51.9 Headache, unspecified (principal); G89.29 Other chronic pain; J44.9 Chronic obstructive pulmonary disease, unspecified; I73.9 Peripheral vascular disease, unspecified; F32.9 Major depressive disorder, single episode, unspecified; I69.398 Other sequelae of cerebral infarction; R20.0 Anesthesia of skin; E11.9 Type 2 diabetes mellitus without complications; F17.210 Nicotine dependence, cigarettes, uncomplicated; K21.9 Gastro-esophageal reflux disease without esophagitis; E78.5 Hyperlipidemia, unspecified; Z79.01 Long term (current) use of anticoagulants
CPT/HCPCS: 36415; 70496; 70498; 80048; 80053; 85652; 87635; 93005; 96361; 96374; 96375; 99285; 70450; 70551; 83036; 83735; 85025; 85610; 86140; 93010; 99223; 99239; J0780; J1200; J1644; J2405; J3490

== ENCOUNTER → 2021-01-31 14:52 | Outpatient (BNVA) | payer MEDICARE, MEDICAID, SELFPAY | PROVIDERS: PCP Family Medicine; Referring Provider Family Medicine; Visit Provider Psychiatry & Neurology Neurology | DX: G44.52 New daily persistent headache (NDPH) (principal); R42 Dizziness and giddiness; I63.9 Cerebral infarction, unspecified; R20.0 Anesthesia of skin; E11.9 Type 2 diabetes mellitus without complications; F17.210 Nicotine dependence, cigarettes, uncomplicated | CPT/HCPCS: 99215 ==

== ENCOUNTER 2021-02-04 21:03 | Outpatient (REF) | payer MEDICARE, MEDICAID, SELFPAY ==
[2021-02-04 21:48] LABS: Anion Gap 9.2 mmol/L (3-11); BUN 19 mg/dL (7-18); CO2 27.8 mmol/L (21.0-32.0); CREATININE 0.8 mg/dL (0.55-1.02); Calcium 9.3 mg/dL (8.5-10.1); Chloride 104 mmol/L (98-107); Glucose 84 mg/dL (74-106); Potassium 4.9 mmol/L (3.5-5.1); Sodium 141 mmol/L (136-145)
== END 2021-02-04 21:04 | disposition home or self-care (01) ==
LOC: LBN 21:03
PROVIDERS: PCP Family Medicine; Visit Provider Nurse Practitioner Family
DX: E87.1 Hypo-osmolality and hyponatremia (principal)
CPT/HCPCS: 80048

== ENCOUNTER 2021-02-27 01:37 | Outpatient (CLI) | payer MEDICARE, MEDICAID, SELFPAY ==
--- NOTE | 2021-02-27 07:15 | DI.DEXA_ITS ---
Exam(s) XR DEXA BONE DENSITY W/WO KARLA EXAM: XR DEXA BONE DENSITY W/WO KARLA CLINICAL HISTORY: SCREENING FOR OSTEOPOROSIS IN POSTMENOPAUSAL WOMAN,Z78.0 TECHNIQUE: COMPARISON: Comparison examination is 10/01/2006. FINDINGS: Lateral Spine Image: Unremarkable. No compression deformities identified. Left hip: Total T-Score: 0.1. This compares with 2.4 on the prior examination. Total Z-Score: 1.3 T- and Z-scores: Within normal limits. Lumbar Spine: Total T-Score: 1.6. This compares to 0.9 on the prior examination. Total Z-Score: 3.3. T- and Z-scores: Within normal limits. IMPRESSION: No evidence of osteoporosis.
== END 2021-02-27 01:57 ==
PROVIDERS: PCP Nurse Practitioner Family; Visit Provider Nurse Practitioner Family
DX: Z13.820 Encounter for screening for osteoporosis (principal); Z78.0 Asymptomatic menopausal state
CPT/HCPCS: 77080

== ENCOUNTER 2021-03-28 02:40 | Outpatient (CLI) | payer MEDICARE, MEDICAID, SELFPAY ==
--- NOTE | 2021-03-28 08:45 | DI.RAD_ITS ---
Exam(s) RF JOINT INJECTION FLUORO GUID EXAM: RF JOINT INJECTION FLUORO GUID CLINICAL HISTORY: R HIP INJ UNDER FLUORO, PRIMARY OA RT HIP, M16.11 TECHNIQUE: Fluoroscopy provided. Radiologist not present. CONTRAST MATERIAL: None COMPARISON: No exams were available for comparison FINDINGS: Fluoroscopy was provided for Dr. Rivera during therapeutic right hip injection. Submitted image(s) reveal placement of a injection needle junction femoral head and neck, lateral ariella scherer. Injection intra-articular contrast Please refer to the procedure report for complete details. Cumulative Dose: Ka,r= mGy IMPRESSION: RADIATION DOSE DELIVERED:
--- NOTE | 2021-03-28 08:45 | DI.RAD_ITS ---
Exam(s) RF JOINT INJECTION FLUORO GUID EXAM: RF JOINT INJECTION FLUORO GUID CLINICAL HISTORY: L HIP INJ UNDER FLUORO, OA LT HIP TECHNIQUE: Fluoroscopy provided. Radiologist not present. CONTRAST MATERIAL: None COMPARISON: No exams were available for comparison FINDINGS: Fluoroscopy was provided for Dr. Rivera during left hip injection. Submitted image(s) reveal placement of needle the lateral aspect the left femoral head. Intra-articu lar contrast injected Please refer to the procedure report for complete details. Cumulative Dose: Ka,r=not given mGy IMPRESSION: RADIATION DOSE DELIVERED:
--- NOTE | 2021-03-28 15:13 | W.PROCNOTE ---
Procedure Note Date of procedure: 03/28/21 Procedure: Bilateral Hip Injection with Fluoroscopic Guidance Surgeon/Proceduralist/Physician: Jorge Rivera Procedure Diagnosis: Left Hip Osteoarthritis and Right Femoroacetabular Impingement Procedure Indications: Kera has had persistent pain of the bilateral hip and groin. Noninvasive measures have been tried. To serve as both diagnostic and therapeutic, an injection under fluoroscopy was recommended. I had discussed the risks of the procedure and the patient elected to proceed. Procedure Description: Kera was greeted in the flouroscopy room. The consent was reviewed with the patient and signed. The patient was then placed in the supine position on the fluoroscopy table. The LEFT hip was then prepped with Chloraprep. The anterolateral injection starting point was identiifed by bony landmarks and fluoroscopy. The skin and soft tissue in the tract of the injection was anesthetized with 1% Lidocaine. A spinal needle was then inserted deep into the hip joint at the level of the lateral femoral neck under fluoroscopic guidance. A small amount of Omnipaque solution was injected to confirm intraarticular placement. Once confirmed, the hip was injected with 6cc of 0.5% Bupivicaine and 80mg of Depo-Medrol. A bandaid was placed on the injection site. The RIGHT hip was then prepped with Chloraprep. The anterolateral injection starting point was identiifed by bony landmarks and fluoroscopy. The skin and soft tissue in the tract of the injection was anesthetized with 1% Lidocaine. A spinal needle was then inserted deep into the hip joint at the level of the lateral femoral neck under fluoroscopic guidance. A small amount of Omnipaque solution was injected to confirm intraarticular placement. Once confirmed, the hip was injected with 6cc of 0.5% Bupivicaine and 80mg of Depo-Medrol. A bandaid was placed on the injection site.
[2021-03-28] MEDS: methylPREDNISolone ACETATE 80 MG/ML VIAL IM ×2 (15:14→15:16)
[2021-03-28] MEDS: Omnipaque 300 MG/ML 10 ML BTL IJ ×2 (15:14→15:17)
[2021-03-28] MEDS: Bupivacaine 0.5% Pres-Free 10 ML VIAL IJ ×2 (15:16→15:17)
== END 2021-03-28 03:00 ==
PROVIDERS: PCP Nurse Practitioner Family; Visit Provider Student in an Organized Health Care Education/Training Program
DX: M16.12 Unilateral primary osteoarthritis, left hip (principal); M25.851 Other specified joint disorders, right hip; M25.551 Pain in right hip; M25.552 Pain in left hip; R10.31 Right lower quadrant pain; R10.32 Left lower quadrant pain
CPT/HCPCS: 20610 ×2; 77002; J1040

== ENCOUNTER → 2021-04-11 09:17 | Outpatient (BNVA) | payer MEDICARE, MEDICAID, SELFPAY | PROVIDERS: PCP Nurse Practitioner Family; Visit Provider Psychiatry & Neurology Neurology | DX: G44.52 New daily persistent headache (NDPH) (principal); I63.9 Cerebral infarction, unspecified; R20.0 Anesthesia of skin | CPT/HCPCS: 99213 ==

== ENCOUNTER 2021-05-02 17:56 | Emergency (ER) | payer MEDICARE, MEDICAID, SELFPAY ==
[2021-05-02 18:02] VITALS: BP 169/83; PULSE 90; RESP 16; TEMP 36.9; O2SAT 96
[2021-05-02 18:34] LABS: Abs Immature Grans 0.06 10^3/uL (0.0-0.06); Absolute Basophil Count 0.08 10^3/uL (0.0-0.2); Absolute Eosinophil Count 0.18 10^3/uL (0.0-0.7); Absolute Lymphocyte Count 5.37 10^3/uL (1.2-3.4); Absolute Monocyte Count 0.94 10^3/uL (0.1-0.8); Basophils % 0.6; Eosinophils % 1.3; HCT 50.3 % (36.0-46.0); HGB 16.3 g/dL (11.2-15.7); Immature Grans % 0.4; MCH 30.1 pg (27.0-33.0); MCHC 32.4 % (32.0-36.0); MCV 92.8 fL (80-95); MPV 10.3 fL (8.0-11.0); Monocytes % 6.8; Neutrophils % 51.9; Nucleated RBC 0 %; Platelet Count 248 10^3/uL (130-400); RBC 5.42 10^6/uL (3.93-5.22); RDW 13.6 % (11.7-14.6); RDW-SD 46.1 fL; WBC 13.76 10^3/uL (4.4-10.8)
[2021-05-02 18:43] LABS: Lipase 698 U/L (73-393)
--- NOTE | 2021-05-02 18:45 | DI.CT_ITS ---
Exam(s) CT ABDOMEN PELVIS W EXAM: CT ABDOMEN PELVIS W INDICATION: RUQ abd pain. COMPARISON: CT CT BRAIN NECK CTA from 01/24/2021 TECHNIQUE: FINDINGS: CT examination of the abdomen and pelvis was performed with a bolus infusion of 100 cc of Omnipaque 3 50. Images obtained through the lung bases are unremarkable. Note is made of hepatic steatosis. No focal hepatic lesion identified. Gallbladder has been surgically removed, no biliary dilatation seen. The pancreas appears grossly intact, however there is question of peripancreatic edema around the arellano creatic head. Please correlate clinically regarding possibility of pancreatitis. Mild prominence of roseline hepatis nodes noted. Spleen is unremarkable in appearance. Adrenals appear normal. The kidneys are unremarkable with no evidence of hydronephrosis, nephrolithiasis, or renal mass with an incidental left renal cyst measuring roughly 3 cm in... Urinary bladder unremarkable. Abdominal aorta is of normal diameter. Abdominal aorta and multiple branch vessels show dense wall c alcification. No abdominal wall hernia. No abdominal or pelvic adenopathy. 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 Appendix is normal. No evidence of diverticulitis or bowel obstruction. IMPRESSION: Question peripancreatic fat edema, please correlate clinically regarding possibility of pancreatitis. Hepatic steatosis noted. RADIATION DOSE DELIVERED: 799.61mGy.cm Total DLP 799.61mGy.cm Total DLP CTDIvol RADIATION OPTIMIZATION: All CT scans at this facility use at least one of these dose optimization te chniques: automated exposure control; mA and/or kV adjustment per patient size (includes targeted exa ms where dose is matched to clinical indication); or iterative reconstruction.
[2021-05-02 18:47] LABS: Absolute Neutrophil Count 7.14 10^3/uL (1.2-6.7)
--- NOTE | 2021-05-02 18:49 | ED.GENADUL_ITS ---
Discharge Plan Disposition Patient Disposition: HOME Condition: Stable Discharge Details Clinical Impression: Acute pancreatitis Primary Care Provider: Maribeth Fish ED Provider: Lissa Castellanos Home Meds and New Rx's Prescriptions: Continued verapamil 40 mg tablet 40 mg PO DAILY Qty: 90 RF: 2 metformin 500 mg tablet extended release 24 hr 1,000 mg PO BID RF: 0 citalopram 20 mg tablet 40 mg PO DAILY Qty: 60 RF: 11 Chantix Starting Month Box 0.5 mg (11)- 1 mg (42) tablets,dose pack See Rx Instructions PO DIRECTED RF: 0 clopidogrel [Plavix] 75 mg tablet 75 mg PO DAILY Qty: 90 RF: 3 atorvastatin 20 mg tablet 20 mg PO QHS Qty: 90 RF: 3 (DME) Blood Glucose Test Strip See Rx Instructions .ROUTE .MEDSUPPLY Qty: 100 RF: 11 (DME) blood-glucose meter Misc See Rx Instructions .ROUTE .MEDSUPPLY Qty: 1 RF: 0 glipizide 5 mg tablet extended release 24hr 5 mg PO BID Qty: 180 RF: 3 (DME) lancets [FreeStyle Lancets] 28 gauge misc 1 ea Miscellaneous DAILY Qty: 100 RF: 11 (DME) blood pressure monitor Kit See Rx Instructions .ROUTE .MEDSUPPLY Qty: 1 RF: 0 Emgality Pen 120 mg/mL pen injector 120 mg subcut QMONTH Qty: 1 RF: 11 Discharge Instructions Instructions: Pancreatitis (ED) Additional Instructions: Increase oral fluids. Bowel rest for the first 24 hours then clear liquids for the next 48 to 72 hours. Pain medication and nausea medication as directed. Follow up with primary care provider in 3-5 days. Return to ED sooner if any worsening or concerns. Increase oral fluids. Please take Tylenol or Ibuprofen with food every 4-6 hours as needed for pain and swelling. Referrals: Maribeth Fish NP [Primary Care Provider] - Tonia Romero DO [OSTEOPATHIC DOCTOR] - Discharge Data Discharge Date/Time-TO BE ENTERED AT DEPARTURE: 05/02/21 21:10 Medical Decision Making 65-year-old female with a past medical history of CVA, type 2 diabetes, hyperlipidemia, COPD, degenerative disc disease, tubular adenoma of colon presents to the ER with chief complaint of abdominal pain which has been ongoing for the last few weeks. She reports diarrhea on and off for years alternating with constipation. She describes it as achy and swollen to the right upper quadrant right lower quadrant and sometimes left lower quadrant. No vomiting no fever chills. She reports a few years ago having surgery after a possible obstruction, she is also got a history of hysterectomy, cholecystectomy. She denies any hematochezia or hematemesis. CBC shows white blood cell count of 13.76, hemoglobin 16.3 hematocrit 3.3, absolute neutrophils 7.14 glucose 171, lipase is slightly elevated at 698 CT abd/Pelvis W: FINDINGS: Lungs: Lung bases are clear. Liver: Negative for intrahepatic mass. Attenuation is low relative to the spleen. Gallbladder and bile ducts: Prior cholecystectomy. No significant biliary ductal dilatation. Pancreas: Mild fat stranding noted around the pancreatic head, extending into the roseline hepatis. Pancreatic duct is not dilated. No fluid collections observed. Negative for pancreatic calcifications. Spleen: Normal. Adrenal glands: Normal. No mass. Kidneys and ureters: Negative for hydronephrosis or mass. Left renal cyst 3.1 cm. Ureters are not dilated. Stomach and bowel: Collapsed stomach. Small bowel is not dilated. Cecum is mobile, extending into the upper abdomen near midline. Negative for inflammatory changes around the colon. Appendix: Normal appendix, located near midline. Intraperitoneal space: Negative for free fluid or free air. Negative for abscess. Vasculature: Negative for aneurysm. Moderate-severe arterial calcifications. Lymph nodes: Unremarkable. No enlarged lymph nodes. Urinary bladder: Unremarkable as visualized. Reproductive: Unremarkable as visualized. Bones/joints: Negative for compression fracture. Moderate disc space narrowing and osteophyte formation noted. Degenerative endplate sclerosis noted at L4-L5 on the left. Spinal canal stenosis suspected L2-L3, L3-L4, L4-L5, and L5-S1. Neural foraminal narrowing noted at L5-S1. Soft tissues: Unremarkable. IMPRESSION: 1. CT findings of mild acute pancreatitis. Clinical correlation needed. 2. Hepatic steatosis. 3. Moderate-severe arteriosclerotic vascular disease. 4. Multilevel degenerative disc disease and facet arthropathy in the lumbar spine. Discussed CT findings with patient of mild acute pancreatitis. Patient is taking p.o. without difficulty and has not been vomiting. Patient is afebrile. I did discuss pain medication, nausea medication and fluid along with diet and strict return instructions with patient who verbalized understanding. Patient was given hydrocodone Tylenol to go Zofran 4 mg ODT to go and instructed on bowel rest for the next 24 hours and clear liquids for the next 48 to 72 hours and strict return instructions. Patient instructed to follow-up with PCP and/or the ER for any worsening. Patient remained hemodynamically stable alert and oriented throughout stay. HPI General Mode of arrival: ambulatory . Date/Time Provider Initiated Documentation: 05/02/21 18:21 . Limitations to Documentation: no limitations . Information obtained by: patient, RN notes reviewed and old records reviewed . HPI Narrative: 65-year-old female with a past medical history of CVA, type 2 diabetes, hyperlipidemia, COPD, degenerative disc disease, tubular adenoma of colon presents to the ER with chief complaint of abdominal pain which has been ongoing for the last few weeks. She reports diarrhea on and off for years alternating with constipation. She describes it as achy and swollen to the right upper quadrant right lower quadrant and sometimes left lower quadrant. No vomiting no fever chills. She reports a few years ago having surgery after a possible obstruction, she is also got a history of hysterectomy, cholecystectomy. She denies any hematochezia or hematemesis. Related Data Home Medications Medication Instructions Recorded Confirmed Blood Glucose Test #100 each NS 05/09/20 04/11/21 atorvastatin 20 mg tablet 20 mg PO QHS #90 tab 05/09/20 04/11/21 blood-glucose meter #1 each 05/09/20 04/11/21 glipizide 5 mg tablet, extended 5 mg PO BID #180 tab-cap 05/09/20 04/11/21 release 24 hr lancets 28 gauge #100 ea 05/09/20 04/11/21 metformin 500 mg tablet,extended 1,000 mg PO BID tab 10/01/20 04/11/21 release 24 hr blood pressure monitor #1 ea 10/02/20 04/11/21 citalopram 20 mg tablet 40 mg PO DAILY #60 tab 11/02/20 04/11/21 verapamil 40 mg tablet 40 mg PO DAILY #90 tab 11/14/20 04/11/21 galcanezumab-gnlm 120 mg/mL 120 mg SUBCUT QMONTH #1 ml 02/04/21 04/11/21 subcutaneous pen injector clopidogrel 75 mg tablet 75 mg PO DAILY #90 tab 04/11/21 04/11/21 varenicline 0.5 mg (11)-1 mg (42) See Rx Instructions PO DIRECTED 04/11/21 04/11/21 tablets in a dose pack Previous Rx's Medication Instructions Recorded Blood Glucose Test #100 each NS 05/09/20 atorvastatin 20 mg tablet 20 mg PO QHS #90 tab 05/09/20 blood-glucose meter #1 each 05/09/20 glipizide 5 mg tablet, extended 5 mg PO BID #180 tab-cap 05/09/20 release 24 hr lancets 28 gauge #100 ea 05/09/20 blood pressure monitor #1 ea 10/02/20 citalopram 20 mg tablet 40 mg PO DAILY #60 tab 11/02/20 verapamil 40 mg tablet 40 mg PO DAILY #90 tab 11/14/20 galcanezumab-gnlm 120 mg/mL 120 mg SUBCUT QMONTH #1 ml 02/04/21 subcutaneous pen injector clopidogrel 75 mg tablet 75 mg PO DAILY #90 tab 04/11/21 Allergies Allergy/AdvReac Type Severity Reaction Status Date / Time omeprazole [From Prilosec] AdvReac Unknown diarrhea Verified 05/02/21 18:07 General Stated Complaint: Abd Prob DAR: 3 Review of Systems All systems reviewed & are unremarkable except as noted in HPI and below Gastrointestinal Gastrointestinal: Reports abdominal pain, Denies melena, Denies hematochezia, Denies fecal incontinence, Reports diarrhea and Denies vomiting [facility] Medical History Cigarette smoker COPD (chronic obstructive pulmonary disease) CVA (cerebral vascular accident) DDD (degenerative disc disease), lumbar Depressive disorder Gastroesophageal reflux disease Hyperlipidemia Osteoarthritis of left hip Peripheral vascular disease of extremity with claudication Stenosis of left subclavian artery Tubular adenoma of colon Type 2 diabetes mellitus Surgical History History of bilateral tubal ligation S/P section S/P cholecystectomy S/P laparoscopic procedure Family History Mother No problems noted. 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 Pets and animals: Yes Pets and animals: cat(s) Sexually active: No What is your relationship status?: refused to answer How often do you talk on the phone with friends or family?: twice per week How often do you get together with friends or relatives?: never How often do you attend roman catholic or religion services?: decline to answer Do you belong to any clubs or organized social groups?: no Panel score (0-1 are the most socially isolated patients): 0 What type of physical activity do you participate in: walking Duration: < 15 minutes/day Frequency: 5-6 times per week [place]elia/Voodoo: No preference Seatbelt use: always Helmet use: No Drive intox or ride w/intox funeral car driver: No Do you feel safe at home: Yes Do you feel safe in your relationship?: Yes Exam Narrative Exam Narrative: Constitutional: Alert and oriented x3. Appears stated age. Normal body habitus. Head: Normocephalic, no trauma. Eyes: Pupils PERRLA, Red reflex noted, EOM's intact. Eyelids symmetrical without lesions, discharge, or swelling. ENT: Bilateral TM's WNL, External ear normal to inspection, no mastoid TTP, swelling, or erythema, Nasal turbinates WNL, no nasal discharge. Normal dentition, Posterior pharynx WNL, no exudate. Chest: RRR, Normal S1, S2, distal pulses intact. Resp: Lungs clear to auscultation bilaterally, no wheezes, rales, or rhonchi. Abdomen: Soft, nondistended tender to palpation right upper quadrant, right lower quadrant left lower quadrant. Musculoskeletal: Normal gait, 5/5 strength to all four extremities. Skin: No suspicious rashes or lesions. Capillary refill less than 2 sec. Neurologic: Cranial nerves II-XII intact. Alert and oriented x 3. DTR's intact. Hematologic/Lymphatic: No ecchymosis, no lymphadenopathy. Course Vital Signs Vital signs: Vital Signs Temperature 36.9 C 05/02/21 18:02 Pulse 90 05/02/21 18:02 Respiratory Rate 16 05/02/21 18:02 Blood Pressure 169/83 H 05/02/21 18:02 Pulse Oximetry 96 05/02/21 18:02 Temperature 36.9 C 05/02/21 18:02 Temperature Source Tympanic 05/02/21 18:02 Pulse 90 05/02/21 18:02 Respiratory Rate 16 05/02/21 18:02 Respiratory Effort Non-Labored 05/02/21 18:31 Blood Pressure 169/83 H 05/02/21 18:02 Pulse Oximetry 96 05/02/21 18:02 Oxygen Delivery Method Room Air 05/02/21 18:02 Oxygen Flow Rate 0 05/02/21 18:02 Pain Level 7 05/02/21 18:02 Lab/Test Results Lab/Test Results: Laboratory Tests Range/Units 05/02/21 05/02/21 05/02/21 18:16 18:29 18:29 WBC (4.4-10.8) 10^3/uL 13.76 H RBC (3.93-5.22) 10^6/uL 5.42 H Hgb (11.2-15.7) g/dL 16.3 H Hct (36.0-46.0) % 50.3 H MCV (80-95) fL 92.8 MCH (27.0-33.0) pg 30.1 MCHC (32.0-36.0) % 32.4 RDW (11.7-14.6) % 13.6 Plt Count (130-400) 10^3/uL 248 Lipase (73-393) U/L 698 H Urine Color Cancelled Urine Clarity Cancelled Urine pH Cancelled Ur Specific [place] Cancelled Urine Protein Cancelled Urine Ketones Cancelled Urine Blood Cancelled Urine Nitrite Cancelled Urine Bilirubin Cancelled Urine Urobilinogen Cancelled Ur Leukocyte Esterase Cancelled Urine Glucose Cancelled
[2021-05-02 18:50] LABS: ALT 41 U/L (14-59); AST 8 U/L (15-37); Albumin 4.2 g/dL (3.4-5.0); Alkaline Phosphatase 110 U/L (46-116); Anion Gap 10.9 mmol/L (3-11); BUN 16 mg/dL (7-18); Bilirubin, Total 0.3 mg/dL (0.2-1.0); CO2 27.1 mmol/L (21.0-32.0); CREATININE 0.9 mg/dL (0.55-1.02); Calcium 9.8 mg/dL (8.5-10.1); Chloride 101 mmol/L (98-107); Glucose 171 mg/dL (74-106); Sodium 139 mmol/L (136-145); Troponin I < 0.05 ng/mL (<0.06)
[2021-05-02 19:11] LABS: Diff Comment Diff Reviewed; RBC Morphology Normal
[2021-05-02] MEDS: MORPHine 10 MG/ML VIAL 2 MG IVP (19:12)
[2021-05-02] MEDS: Ondansetron 4 MG/2 ML VIAL IVP (19:12)
[2021-05-02] MEDS: Normal Saline Flush 10 ML SYR IVP ×2 (19:13→20:08)
[2021-05-02 19:34] VITALS: BP 138/77; PULSE 80; RESP 14; O2SAT 92
[2021-05-02] MEDS: Normal Saline - Diluent 50 ML VIAL IV (20:07)
[2021-05-02] MEDS: Omnipaque 350 MG/ML 100 ML BTL IJ (20:07)
[2021-05-02] MEDS: Normal Saline 250 ML IV (20:15)
--- NOTE | 2021-05-02 20:43 | DI.VRAD_ITS ---
PROCEDURE INFORMATION: Exam: CT Abdomen And Pelvis With Contrast Exam date and time: 05/02/2021 6:58 PM Age: 65 years old Clinical indication: Abdominal pain; Other: Ruq pain TECHNIQUE: Imaging protocol: Computed tomography of the abdomen and pelvis with contrast. Contrast material: OMNIPAQUE 350; Contrast volume: 100 ml; Contrast route: INTRAVENOUS (IV); COMPARISON: CT ABDOMEN PELVIS W 11/07/2018 8:55 AM FINDINGS: Lungs: Lung bases are clear. Liver: Negative for intrahepatic mass. Attenuation is low relative to the spleen. Gallbladder and bile ducts: Prior cholecystectomy. No significant biliary ductal dilatation. Pancreas: Mild fat stranding noted around the pancreatic head, extending into the roseline hepatis. Pancreatic duct is not dilated. No fluid collections observed. Negative for pancreatic calcifications. Spleen: Normal. Adrenal glands: Normal. No mass. Kidneys and ureters: Negative for hydronephrosis or mass. Left renal cyst 3.1 cm. Ureters are not dilated. Stomach and bowel: Collapsed stomach. Small bowel is not dilated. Cecum is mobile, extending into the upper abdomen near midline. Negative for inflammatory changes around the colon. Appendix: Normal appendix, located near midline. Intraperitoneal space: Negative for free fluid or free air. Negative for abscess. Vasculature: Negative for aneurysm. Moderate-severe arterial calcifications. Lymph nodes: Unremarkable. No enlarged lymph nodes. Urinary bladder: Unremarkable as visualized. Reproductive: Unremarkable as visualized. Bones/joints: Negative for compression fracture. Moderate disc space narrowing and osteophyte formation noted. Degenerative endplate sclerosis noted at L4-L5 on the left. Spinal canal stenosis suspected L2-L3, L3-L4, L4-L5, and L5-S1. Neural foraminal narrowing noted at L5-S1. Soft tissues: Unremarkable. IMPRESSION: 1. CT findings of mild acute pancreatitis. Clinical correlation needed. 2. Hepatic steatosis. 3. Moderate-severe arteriosclerotic vascular disease. 4. Multilevel degenerative disc disease and facet arthropathy in the lumbar spine. Dictated and Authenticated by: Tommie Thakur MD. Ordering:ADAN Alcaraz MD
[2021-05-02 20:52] VITALS: BP 148/75; PULSE 77; RESP 16; O2SAT 92
[2021-05-02 21:09] VITALS: BP 146/74; PULSE 64; RESP 18; TEMP 36.6; O2SAT 97
== END 2021-05-02 21:10 | disposition home or self-care (01) ==
PROVIDERS: Emergency Provider Registered Nurse Emergency; PCP Nurse Practitioner Family
DX: K85.90 Acute pancreatitis without necrosis or infection, unspecified (principal)
CPT/HCPCS: 80053; 83690; 96361; 96374; 96375; 99285; 74177; 81003; 83735; 84484; 85025; 99284; J2270; J2405; J3490

== ENCOUNTER 2021-05-14 03:08 | Outpatient (CLI) | payer MEDICARE, MEDICAID, SELFPAY ==
[2021-05-14 12:22] LABS: Abs Immature Grans 0.05 10^3/uL (0.0-0.06); Absolute Basophil Count 0.11 10^3/uL (0.0-0.2); Absolute Eosinophil Count 0.13 10^3/uL (0.0-0.7); Absolute Lymphocyte Count 4.16 10^3/uL (1.2-3.4); Absolute Monocyte Count 0.86 10^3/uL (0.1-0.8); Eosinophils % 1.2; HCT 47.7 % (36.0-46.0); HGB 15.2 g/dL (11.2-15.7); Immature Grans % 0.5; Lymphocytes % 38.8; MCH 30.2 pg (27.0-33.0); MCHC 31.9 % (32.0-36.0); MCV 94.6 fL (80-95); MPV 11.4 fL (8.0-11.0); Neutrophils % 50.5; Nucleated RBC 0 %; Platelet Count 227 10^3/uL (130-400); RBC 5.04 10^6/uL (3.93-5.22); RDW 13.6 % (11.7-14.6); RDW-SD 47.6 fL; WBC 10.71 10^3/uL (4.4-10.8)
[2021-05-14 12:39] LABS: ALT 25 U/L (14-59); AST 21 U/L (15-37); Alkaline Phosphatase 86 U/L (46-116); Anion Gap 10.9 mmol/L (3-11); BUN 21 mg/dL (7-18); Bilirubin, Total 0.2 mg/dL (0.2-1.0); CO2 27.1 mmol/L (21.0-32.0); CREATININE 0.9 mg/dL (0.55-1.02); Calcium 9.1 mg/dL (8.5-10.1); Calculated LDL 18 mg/dL (<100); Chloride 102 mmol/L (98-107); Cholesterol 118 mg/dL (<200); Glucose 108 mg/dL (74-106); HDL Cholesterol 31 mg/dL (40-60); Potassium 4.3 mmol/L (3.5-5.1); Sodium 140 mmol/L (136-145); Total Protein 7.5 g/dL (6.4-8.2); Triglyceride 345 mg/dL (<150)
[2021-05-14 12:49] LABS: Amylase 51 U/L (25-115); Lipase 146 U/L (73-393)
== END 2021-05-14 03:09 | disposition home or self-care (01) ==
LOC: LOS 03:09
PROVIDERS: PCP Nurse Practitioner Family; Visit Provider Nurse Practitioner Family
DX: K85.90 Acute pancreatitis without necrosis or infection, unspecified (principal); E11.9 Type 2 diabetes mellitus without complications
CPT/HCPCS: 36415; 80053; 80061; 83690; 82150; 85025

== ENCOUNTER 2021-05-30 13:52 | Emergency (ER) | payer MEDICARE, MEDICAID, SELFPAY ==
[2021-05-30 13:52] VITALS: BP 151/53; PULSE 91; TEMP 36.7; O2SAT 95
--- NOTE | 2021-05-30 14:08 | ED.GENADUL_ITS ---
Discharge Plan Disposition Patient Disposition: HOME Condition: Stable Discharge Details Clinical Impression: Leg swelling, Arthritis of knee Primary Care Provider: Maribeth Fish ED Provider: Anahi Patterson Home Meds and New Rx's Prescriptions: Continued atorvastatin 20 mg tablet 20 mg PO QHS Qty: 90 RF: 3 glipizide 5 mg tablet extended release 24hr 5 mg PO BID Qty: 180 RF: 3 Chantix Starting Month Box 0.5 mg (11)- 1 mg (42) tablets,dose pack See Rx Instructions PO DIRECTED RF: 0 clopidogrel [Plavix] 75 mg tablet 75 mg PO DAILY Qty: 90 RF: 3 citalopram 40 mg tablet 40 mg PO DAILY Qty: 90 RF: 4 (DME) lancets [FreeStyle Lancets] 28 gauge misc 1 ea Miscellaneous DAILY Qty: 100 RF: 4 metformin 500 mg tablet extended release 24 hr 1,000 mg PO BID Qty: 360 RF: 4 verapamil 40 mg tablet 40 mg PO DAILY Qty: 90 RF: 4 (DME) blood-glucose meter Misc See Rx Instructions .ROUTE .MEDSUPPLY Qty: 1 RF: 0 Emgality Pen 120 mg/mL pen injector 120 mg subcut QMONTH Qty: 1 RF: 11 (DME) OneTouch Verio test strips Strip See Rx Instructions .ROUTE .MEDSUPPLY Qty: 100 RF: 4 Discharge Instructions Instructions: Leg Edema (ED) Additional Instructions: Please encourage elevation of your leg. Please continue with the thigh-high compression hose to help with the swelling. As discussed, your imaging is significant for arthritis of your knee. Otherwise, no vascular issue. We did discuss labs and further imaging and have decided to hold off at this time. You may return anytime for continued management and further evaluation of this. As we discussed, I would like you to continue with your walking program but walking and shorter more frequent time periods. You may find walking in the house or even just in the driveway beneficial and challenging at this time. If you develop any shortness of breath, redness, fever/chills or other new/worsening symptom please seek care urgently once again. Otherwise, please follow-up with primary care next week for reevaluation. Referrals: Maribeth Fish NP [Primary Care Provider] - Discharge Data Discharge Date/Time-TO BE ENTERED AT DEPARTURE: 05/30/21 16:32 Medical Decision Making Patient is a pleasant 65 year old female brought in via EMS c/c of LLE edema and pain. States that this started over a week ago. Has progressively been worsening. No symptoms in contralateral leg. Denies trauma. Is being treated for left hip pain, has being treated for bilateral hip pain by orthopedics. Denies fevers/chills. Reports she has vascular issues historically, unclear if she has had a DVT. Chart reports peripheral vascular disease. Patient states that she is prepping for a vascular surgery as well as a hip replacement. States that she was advised to walk. She has been trying to walk 1/2 a mile twice aday. The pain comes out when she is exercising. States that rest will help to resolve pain. She has been diagnosed with claudication in the past. She denies CP or SOB. On exam, patient appears nontoxic. She has swelling from thigh to calf. Thigh is 1 inch larger rthan contralateral side. No palpable cord. Non-pitting. No erythema, warmth or evidenc eof infection. Small effusion of left knee. Again, no erythema or warmth. Patient is neurovascularly intact. Differential includes DVT, claudication, trauma from remove injury, Bakers cyst vs. other. She has no involvement of contralateral side, doubt CHF or systemic illness. No abdominal pain. Low suspision for intraabdominal cause. Her exam is not consistent with arterial blood flow disruption. Will obtain US and XR of left knee. Patient declines analgesics. FINDINGS: BONES: No acute fracture is present. No bony destructive lesion is seen. JOINTS: The knee is normally aligned. A small joint effusion is seen. Mild medial femoral tibial joint space narrowing and mild periarticular spurring. Moderate narrowing of the medial patellofemoral joint and moderate spurring at the medial patella. Enthesophyte superior pole patella at quadriceps insertion. SOFT TISSUE: Normal. Vascular calcifications IMPRESSION: Moderate degenerative changes of the medial femoral tibial medial patellofemoral joints. FINDINGS: The common femoral, femoral and popliteal veins demonstrate normal compressibility, augmentation, and color Doppler. The posterior tibial veins are patent. No saphenous vein thrombosis or other superficial venous thrombosis is seen. No hematoma or Burr's cyst is seen. IMPRESSION: Negative lower extremity ultrasound. No evidence of DVT. Discussed findigns with the patient. Her daughter is now at bedside. We discussed contineud ddx. She is now reporting that her exercise has been fragmented. She findgs that the days she walks the longer distance, 1/2, is too much and that she does not do this daily secondary to the pain. I wonder if she is over exerting herself and haivng severe claudication pain. However, I am unsure why she continues to have swelling despite rest. She and I discussed CT and laboratory evaluation. She did have labs on the of last month through her PCP. She reports she was already having these symptoms at that time. No electrolyte abnormalities. Normal kidney and liver function at that time. Patient declines having labs repeated. States she is feeling imprved. Declines CT scan. Would prefer compression hose, we are abl eto fit for thigh high today. We discussed a walking program. I encouraged that she walk more frequently for shorter distances initially. Encouragaed that when her claudication pain that becomes moderate to severe, that she rest and recover. Printed off claudication walking program for the patient. Encouraged close f/u with PCP. Advised that she also discuss with orthopedics nd her vascular surgeon. All of her questions and concerns were addressed, she is in agreement with this plan. HPI General Mode of arrival: EMS . Date/Time Provider Initiated Documentation: 05/30/21 14:07 . Limitations to Documentation: no limitations . Information obtained by: patient, EMS and RN notes reviewed . History of Present Illness 65 year old F presents to the emergency department with the chief complaint of left leg pain/swelling, described as moderate, with intensity rated at 7. Quality is described as aching, and is localized to the left and lower extremity. Patient reports no radiation. Patient started experiencing this week(s) and it has been intermittent. Immobilization improves symptom(s), Movement worsens symptoms . Patient notes no other symptoms.; denies chest pain, cough, fever/chills, nausea/vomiting, rash, sh ortness of breath and weakness. Patient did receive the following treatments prior to arrival, none Related Data Home Medications Medication Instructions Recorded Confirmed blood-glucose meter #1 each 05/09/20 05/27/21 galcanezumab-gnlm 120 mg/mL 120 mg SUBCUT QMONTH #1 ml 02/04/21 05/30/21 subcutaneous pen injector clopidogrel 75 mg tablet 75 mg PO DAILY #90 tab 04/11/21 05/30/21 varenicline 0.5 mg (11)-1 mg (42) See Rx Instructions PO DIRECTED 04/11/21 05/27/21 tablets in a dose pack atorvastatin 20 mg tablet 20 mg PO QHS #90 tab 05/06/21 05/30/21 glipizide 5 mg tablet, extended 5 mg PO BID #180 tab-cap 05/06/21 05/30/21 release 24 hr citalopram 40 mg tablet 40 mg PO DAILY #90 tab 05/27/21 05/30/21 lancets 28 gauge #100 ea 05/27/21 05/27/21 metformin 500 mg tablet,extended 1,000 mg PO BID #360 tab 05/27/21 05/30/21 release 24 hr verapamil 40 mg tablet 40 mg PO DAILY #90 tab 05/27/21 05/30/21 blood sugar diagnostic #100 ea 05/28/21 Previous Rx's Medication Instructions Recorded blood-glucose meter #1 each 05/09/20 galcanezumab-gnlm 120 mg/mL 120 mg SUBCUT QMONTH #1 ml 02/04/21 subcutaneous pen injector clopidogrel 75 mg tablet 75 mg PO DAILY #90 tab 04/11/21 atorvastatin 20 mg tablet 20 mg PO QHS #90 tab 05/06/21 glipizide 5 mg tablet, extended 5 mg PO BID #180 tab-cap 05/06/21 release 24 hr citalopram 40 mg tablet 40 mg PO DAILY #90 tab 05/27/21 lancets 28 gauge #100 ea 05/27/21 metformin 500 mg tablet,extended 1,000 mg PO BID #360 tab 05/27/21 release 24 hr verapamil 40 mg tablet 40 mg PO DAILY #90 tab 05/27/21 blood sugar diagnostic #100 ea 05/28/21 Allergies Allergy/AdvReac Type Severity Reaction Status Date / Time omeprazole [From Prilosec] AdvReac Unknown diarrhea Verified 05/30/21 13:58 General Stated Complaint: Vascular DAR: 3 Review of Systems Constitutional Constitutional: Reports as per HPI, Denies chills, Denies fever(s) and Denies weakness Cardiovascular Cardiovascular: Reports as per HPI, Denies chest pain, Denies chest pain with activity, Denies syncope, Denies edema, Denies dyspnea and Denies dyspnea on exertion Respiratory Respiratory: Reports as per HPI, Denies cough, Denies dyspnea and Denies dyspnea on exertion Gastrointestinal Gastrointestinal: Reports as per HPI, Denies abdominal pain and Denies change in bowel habits Musculoskeletal Musculoskeletal: Reports as per HPI and Denies tingling Integumentary/Breasts Skin/Breast: Reports as per HPI, Denies rash and Denies wounds Neurologic Neurologic: Reports as per HPI, Denies syncope, Denies tingling, Denies paresthesias and Denies weakness [facility] Medical History (Updated 05/30/21 @ 16:17 by DANTE Soto) Acute pancreatitis Cigarette smoker COPD (chronic obstructive pulmonary disease) CVA (cerebral vascular accident) DDD (degenerative disc disease), lumbar Depressive disorder Gastroesophageal reflux disease Hyperlipidemia Osteoarthritis of left hip Peripheral vascular disease of extremity with claudication Stenosis of left subclavian artery Tubular adenoma of colon Type 2 diabetes mellitus Surgical History History of bilateral tubal ligation S/P section S/P cholecystectomy S/P laparoscopic procedure Family History Mother No problems noted. 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 Pets and animals: Yes Pets and animals: cat(s) Sexually active: No What is your relationship status?: refused to answer How often do you talk on the phone with friends or family?: twice per week How often do you get together with friends or relatives?: never How often do you attend christianity or yazdanism services?: decline to answer Do you belong to any clubs or organized social groups?: no Panel score (0-1 are the most socially isolated patients): 0 What type of physical activity do you participate in: walking Duration: < 15 minutes/day Frequency: 5-6 times per week Ofelia/Taoist: No preference Seatbelt use: always Helmet use: No Drive intox or ride w/intox 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: No Do you feel safe at home: Yes Do you feel safe in your relationship?: Yes Exam Const General: cooperative, healthy appearing, comfortable, no acute distress, well developed and well groomed Nutritional Appearance: average body habitus and well nourished Orientation: alert and awake Resp Effort & Inspection: normal respiratory effort, able to speak in complete sentences and no respiratory distress Auscultation: clear to auscultation bilaterally Cardio Rate: regular rate Rhythm: regular rhythm Heart Sounds: S1 normal and S2 normal GI Inspection: normal to inspection Palpation: soft, no guarding, no masses and nontender Skin General skin exam: no rashes or lesions noted Lesions: no lesions Rashes: no rashes Trauma: no lacerations or abrasions Neuro General: patient alert and patient awake Cognition: normal cognition Speech: speech normal Gait: normal gait Motor: muscle tone normal throughout Sensory Exam: no sensory deficits noted Extrem Upper/lower leg/hip images: 1. Circumfrencial swelling thigh to calf. No rash, erythema, warmth. Left thigh is 1 inch larger in diameter than contralateral side. No pain with palpation. Small abrasion over knee but this appears to be healing well with no signs of infection. Prominent veins posterior calf, same as contralateral side. No palpable cord. 2+ distal pulses. Sensation and motor intact. Small effusion left knee. Ligamentously intact. Pain over medial knee joint line. Knee is not warm or red. Psych Appearance: grossly normal and well kempt Mental Status: mental status grossly normal Speech and Movement: speech and movement normal Course Vital Signs Vital signs: Vital Signs Temperature 36.7 C 05/30/21 13:52 Pulse 91 H 05/30/21 13:52 Blood Pressure 151/53 H 05/30/21 13:52 Pulse Oximetry 95 05/30/21 13:52 Temperature 36.7 C 05/30/21 13:52 Temperature Source Temporal Artery Scan 05/30/21 13:52 Pulse 91 H 05/30/21 13:52 Respiratory Effort Non-Labored 05/30/21 13:57 Blood Pressure 151/53 H 05/30/21 13:52 Blood Pressure Position Supine 05/30/21 13:52 Pulse Oximetry 95 05/30/21 13:52 Oxygen Delivery Method Room Air 05/30/21 13:52 Oxygen Flow Rate 0 05/30/21 13:52 Pain Level 7 05/30/21 13:52
--- NOTE | 2021-05-30 14:15 | DI.US_ITS ---
Exam(s) US LOWER EXTREMITY VENOUS LT EXAM: US LOWER EXTREMITY VENOUS LT CLINICAL HISTORY: swelling, posterior pain. TECHNIQUE: Lower extremity venous ultrasound performed using grayscale, color-flow, and spectral Do ppler analysis. COMPARISON: No exams were available for comparison FINDINGS: The common femoral, femoral and popliteal veins demonstrate normal compressibility, augmentation, and color Doppler. The posterior tibial veins are patent. No saphenous vein thrombosis or other superfi cial venous thrombosis is seen. No hematoma or Burr's cyst is seen. IMPRESSION: Negative lower extremity ultrasound. No evidence of DVT. DATA REPOSITORY:
--- NOTE | 2021-05-30 14:15 | DI.RAD_ITS ---
Exam(s) XR KNEE LT 4V AP,LAT,AYAN,PAT EXAM: XR KNEE LT 4V AP,LAT,AYAN,PAT CLINICAL HISTORY: remote trauma, continued pain/swelling. TECHNIQUE: 2D digital imaging was performed. COMPARISON: No exams were available for comparison FINDINGS: BONES: No acute fracture is present. No bony destructive lesion is seen. JOINTS: The knee is normally aligned. A small joint effusion is seen. Mild medial femoral tibial join t space narrowing and mild periarticular spurring. Moderate narrowing of the medial patellofemoral j oint and moderate spurring at the medial patella. Enthesophyte superior pole patella at quadriceps i nsertion. SOFT TISSUE: Normal. Vascular calcifications IMPRESSION: Moderate degenerative changes of the medial femoral tibial medial patellofemoral joints. DATA REPOSITORY: RADIATION DOSE DELIVERED:
--- NOTE | 2021-05-30 15:42 | NUR.NOTE ---
Measured thighs Right 17.5 and Left 18.5 Nursing Note:
== END 2021-05-30 16:32 | disposition home or self-care (01) ==
PROVIDERS: Emergency Provider Physician Assistant; PCP Nurse Practitioner Family
DX: R60.0 Localized edema (principal); M17.12 Unilateral primary osteoarthritis, left knee; M25.462 Effusion, left knee
CPT/HCPCS: 99284; 73564; 93971

== ENCOUNTER 2021-06-10 04:00 | Outpatient (CLI) | payer MEDICARE, MEDICAID, SELFPAY ==
[2021-06-10 13:45] LABS: D-Dimer 1584 ng/mlFEU (<500)
[2021-06-11 11:20] LABS: Lyme Ab w Rflx to Lyme Confirm Negative (Negative)
[2021-06-12 19:34] LABS: Anaplasma phagocytophilum Negative (Negative); B. miyamotoi PCR Negative (Negative); Babesia divergens/MO-1 Negative (Negative); Babesia duncani Negative (Negative); Babesia microti Negative (Negative); Ehrlichia chaffeensis Negative (Negative); Ehrlichia ewingii/canis Negative (Negative); Ehrlichia muris eauclairensis Negative (Negative)
== END 2021-06-10 04:01 | disposition home or self-care (01) ==
LOC: LOS 04:00
PROVIDERS: PCP Nurse Practitioner Family; Visit Provider Nurse Practitioner Family
DX: R22.42 Localized swelling, mass and lump, left lower limb (principal); M79.89 Other specified soft tissue disorders
CPT/HCPCS: 36415; 87798; 85379; 86618

== ENCOUNTER 2021-06-14 02:59 | Outpatient (CLI) | payer MEDICARE, MEDICAID, SELFPAY ==
--- NOTE | 2021-06-14 06:15 | DI.US_ITS ---
Exam(s) US LOWER EXTREMITY VENOUS LT EXAM: US LOWER EXTREMITY VENOUS LT CLINICAL HISTORY: Positive D-dimer, progressively worsening LLE edemA,M79.89 TECHNIQUE: Left lower extremity venous ultrasound performed using grayscale, color-flow, and spectra l Doppler analysis. COMPARISON: US US LOWER EXTREMITY VENOUS LT from 05/30/2021 FINDINGS: The left common femoral, femoral and popliteal veins demonstrate normal compressibility, augmentation , and color Doppler. The posterior tibial veins are patent. The saphenofemoral junction is unremarka ble. There is no evidence of a Burr cyst. The soft tissues are unremarkable. IMPRESSION: No DVT. DATA REPOSITORY:
== END 2021-06-14 03:19 ==
PROVIDERS: PCP Nurse Practitioner Family; Visit Provider Nurse Practitioner Family
DX: M79.89 Other specified soft tissue disorders (principal)
CPT/HCPCS: 93971

== ENCOUNTER → 2021-07-11 11:26 | Outpatient (BNVA) | payer MEDICARE, MEDICAID, SELFPAY | PROVIDERS: PCP Nurse Practitioner Family; Referring Provider Nurse Practitioner Family; Visit Provider Student in an Organized Health Care Education/Training Program | DX: M54.16 Radiculopathy, lumbar region (principal); M51.36 Other intervertebral disc degeneration, lumbar region; I73.9 Peripheral vascular disease, unspecified; M48.062 Spinal stenosis, lumbar region with neurogenic claudication | CPT/HCPCS: 99213 ==

== ENCOUNTER 2021-07-19 09:13 | Outpatient (CLI) | payer MEDICARE, MEDICAID, SELFPAY ==
--- NOTE | 2021-07-19 08:45 | DI.MRI_ITS ---
Exam(s) MR LUMBAR SPINE WO EXAM: MR LUMBAR SPINE WO CLINICAL HISTORY: PAIN,lumbar radiculopathy,ddd,m54.16,m51.36 TECHNIQUE: Multiplanar multisequence MRI of the Lumbar Spine was performed. CONTRAST MATERIAL: Noncontrast COMPARISON: CR XR LUMBAR SPINE AP, LAT from 09/12/2020 CR XR DEXA BONE DENSITY W/WO KARLA from 02/27/2021 CR XR DEXA BONE DENSITY W/WO KARLA from 02/27/[address] ABDOMEN PELVIS W from 05/02/[address] ABDOMEN PELVIS W from 05/02/2021 FINDINGS: Bones: The last intervertebral disc space is designated the L5/S1 level for the numbering purpose of this examination. The vertebral body heights are well maintained. Alignment is satisfactory. Degene rative signal changes are seen in the endplates. Cord: The conus tip ends at the T12 level. It is of normal size and signal intensity. T12-L1: No disc herniations or bulges are present. L1-2: Minimal disc bulging. L2-3: Small endplate osteophytes and broad-based disc bulging. Large right paracentral disc protrusi on with some superior extrusion of disc material. Mild facet degenerative changes and ligamentous hy pertrophy. Severe central canal stenosis. Moderate right neural foraminal narrowing.. L3-4: Small endplate osteophytes. Broad-based disc bulging. Facet degenerative changes and ligamen tous hypertrophy combining to produce moderate to severe central canal stenosis. [id number]-lo-[id number] bi lateral neural foraminal narrowing.. L4-5: Moderate loss of disc height. Broad-based disc osteophytes. Facet degenerative changes and l igamentous hypertrophy combining to produce moderate central canal stenosis. Moderate to severe bila teral neural foraminal narrowing. L5-S1: Marked loss of disc height. Endplate osteophytes and broad-based disc bulging. Superimposed left paracentral disc protrusion with impingement on the S1 and likely L5 nerve roots. Facet degener ative changes and ligamentous hypertrophy combine to produce moderate central canal stenosis. Modera te to severe bilateral neural foraminal narrowing. Soft tissues: The visualized SI joints and sacrum are well maintained. Left renal cyst. Aorta normal diameter where visualized. IMPRESSION: 1. L2-3: Large right paracentral disc extrusion causing severe central canal stenosis. 2. L5-S1: Large left paracentral disc protrusion. 3. Multilevel neural foraminal narrowing and central canal stenosis secondary to combination of dege nerative changes. DATA REPOSITORY:
== END 2021-07-19 09:33 ==
PROVIDERS: PCP Nurse Practitioner Family; Visit Provider Student in an Organized Health Care Education/Training Program
DX: M51.17 Intervertebral disc disorders with radiculopathy, lumbosacral region (principal); M51.37 Other intervertebral disc degeneration, lumbosacral region; M48.07 Spinal stenosis, lumbosacral region
CPT/HCPCS: 72148

== ENCOUNTER 2021-10-01 03:21 | Outpatient (CLI) | payer MEDICARE, MEDICAID, SELFPAY ==
[2021-10-01 11:39] LABS: Hemoglobin A1C 8.4 % (<5.7)
== END 2021-10-01 03:22 | disposition home or self-care (01) ==
LOC: LBO 03:21
PROVIDERS: PCP Nurse Practitioner Family; Visit Provider Nurse Practitioner Family
DX: E11.9 Type 2 diabetes mellitus without complications (principal)
CPT/HCPCS: 36415; 83036

== ENCOUNTER → 2022-05-27 00:52 | Outpatient (CLI) | payer MEDICARE, MEDICAID, SELFPAY ==
[2022-05-27 09:00] LABS: Anion Gap 8.3 mmol/L (3-11); BUN 16 mg/dL (7-18); CO2 27.7 mmol/L (21.0-32.0); CREATININE 0.9 mg/dL (0.55-1.02); Calcium 8.9 mg/dL (8.5-10.1); Chloride 99 mmol/L (98-107); Estimated GFR 70.51 (mL/min/1.73m2); Glucose 337 mg/dL (74-106); Potassium 4.1 mmol/L (3.5-5.1); Sodium 135 mmol/L (136-145)
--- NOTE | 2022-05-27 09:30 | DI.CT_ITS ---
Exam(s) CT ABD AORTA CTA W RUNOFF EXAM: CT ABD AORTA CTA W RUNOFF CLINICAL HISTORY: PVD, I73.9; TYPE 2 DM, E11.9; LIPOPROTEIN DEFICIENCY, E78.6 TECHNIQUE: COMPARISON: CT CT ABDOMEN PELVIS W from 05/02/2021 FINDINGS: CT angiography of the abdomen and pelvis was performed with additional lower extremity runoff protoco l. Images obtained through the lung bases are unremarkable. Note is made of hepatic steatosis and prior cholecystectomy. Unremarkable appearance of the spleen and pancreas. No biliary dilatation. Incidental left renal cyst noted. No evidence of urinary tract calcification or obstruction. No sig nificant abdominal wall hernia. No abdominal or pelvic adenopathy. No focal bowel pathology. Unrem arkable air and water tester structures for age. No abdominal aortic aneurysm. There is moderate atheromatous change of abdominal aorta and major vis ceral branches. No hemodynamically significant stenosis identified in the major visceral branches. Common iliac arteries are are heavily calcified. There are 50-70 percent luminal diameter stenosis of both common iliac arteries. There is a near occlusion of the right external iliac artery with dis antonio reconstitution. Left common iliac artery shows 50-70 percent luminal diameter stenosis. Left ex ternal iliac artery shows 50-70 percent luminal diameter stenosis. Superficial femoral arteries are heavily calcified bilaterally. There is 7 in 90 percent luminal alex meter stenosis of right superficial femoral artery at multiple levels. There is greater than 90 perc ent luminal diameter stenosis of left superficial femoral artery and multiple stenoses of 50-70 perce nt diameter. Popliteal arteries are patent bilaterally. All 3 calf arteries of both lower extremities are patent to the level of the ankle with multiple areas of 50-70 percent luminal diameter stenosis. IMPRESSION: Severe atheromatous disease as described above, near occlusion of right external iliac artery and gre ater than 90 percent luminal diameter stenosis of left SFA are the areas of greatest luminal diameter stenosis. RADIATION DOSE DELIVERED: 1,009.15mGy.cm Total DLP !Error CTDIvol DATA REPOSITORY: All CT scans at this facility are submitted to the National Radiology Data Registry (NRDR) Dose Index Registry (DIR) with the [employer] (A[employer]). RADIATION OPTIMIZATION: All CT scans at this facility use at least one of these dose optimization te chniques: automated exposure control; mA and/or kV adjustment per patient size (includes targeted exa ms where dose is matched to clinical indication); or iterative reconstruction.
== END ==
PROVIDERS: PCP Nurse Practitioner Family; Visit Provider Surgery
DX: I74.5 Embolism and thrombosis of iliac artery (principal)
CPT/HCPCS: 75635; 80048

== ENCOUNTER 2022-10-06 11:05 | Outpatient (CLI) | payer MEDICARE, MEDICAID, SELFPAY ==
--- NOTE | 2022-10-06 09:00 | DI.RAD_ITS ---
Exam(s) XR HIP LT COMPLETE AP PELVIS EXAM: XR HIP LT COMPLETE AP PELVIS CLINICAL HISTORY: left hip DJD. TECHNIQUE: 2D digital imaging was performed. Two views. COMPARISON: CR XR DEXA BONE DENSITY W/WO KARLA from 02/27/2021 FINDINGS: BONES: No acute fracture is present. No bony destructive lesion is seen. Subchondral cyst superior acetabulum. JOINTS: No dislocation present. Severe narrowing left hip joint space. Prominent periarticular spurr ing. Mild degenerative changes right hip. SOFT TISSUE: Vascular calcifications. IMPRESSION: Advanced degenerative changes the left hip. DATA REPOSITORY: RADIATION DOSE DELIVERED:
== END 2022-10-06 11:06 | disposition home or self-care (01) ==
LOC: DIORS 10-07 08:37
PROVIDERS: PCP Nurse Practitioner Family; Visit Provider Physician Assistant
DX: M16.12 Unilateral primary osteoarthritis, left hip (principal)
CPT/HCPCS: 99213; 73502

== ENCOUNTER 2023-01-03 12:31 | Emergency (ER) | payer MEDICARE, MEDICAID, SELFPAY ==
[2023-01-03] VITALS (8 sets, daily range): BP systolic 148–156; BP diastolic 83–92; PULSE 89–92; RESP 14–15; TEMP 36.6; O2SAT 94–98
--- NOTE | 2023-01-03 12:51 | ED.GENADUL_ITS ---
Discharge Plan Disposition Patient Disposition: Home Discharge Details Clinical Impression: Abrasion of left thumb Primary Care Provider: Maribeth Fish ED Provider: Tommie Calvin Home Meds and New Rx's Prescriptions: Continued (DME) pen needle, diabetic [BD Ultra-Fine Short Pen Needle] 31 gauge x 5/16 needle See Rx Instructions .MEDSUPPLY Qty: 100 3RF Rx Instructions: Use with pen daily (DME) lancets [FreeStyle Lancets] 28 gauge misc 1 ea Miscellaneous DAILY Qty: 100 4RF Rx Instructions: Check blood sugar twice a day atorvastatin 20 mg tablet 20 mg PO QHS Qty: 90 3RF (DME) OneTouch Verio test strips Strip See Rx Instructions .ROUTE .MEDSUPPLY Qty: 100 4RF Rx Instructions: As directed BID testing metformin 500 mg tablet extended release 24 hr 1,000 mg PO BID Qty: 360 3RF glipizide 10 mg tablet extended release 24hr 10 mg PO BID Qty: 180 3RF varenicline [Chantix Starting Month Box] 0.5 mg (11)- 1 mg (42) tablets,dose pack See Rx Instructions PO DIRECTED Qty: 53 0RF Rx Instructions: Take 0.5mg daily days 1 to 3, 0.5mg twice a day days 4-7, then 1mg twice a day for 11wks (DME) blood-glucose meter Misc See Rx Instructions .ROUTE .MEDSUPPLY Qty: 1 0RF Rx Instructions: As directed clopidogrel [Plavix] 75 mg tablet 75 mg PO DAILY Qty: 90 3RF verapamil 40 mg tablet 40 mg PO DAILY Qty: 90 3RF insulin glargine [Lantus Solostar U-100 Insulin] 100 unit/mL (3 mL) insulin pen 10 unit subcut DAILY Qty: 4 3RF duloxetine 60 mg capsule,delayed release(DR/EC) 60 mg PO DAILY Qty: 90 3RF Rx Instructions: Take 1 capsule daily (DME) Dexcom G7 Sensor Device See Rx Instructions .Route Qty: 1 3RF Rx Instructions: Continuous glucose monitor Discharge Instructions Instructions: Skin Adhesive Care (ED) Additional Instructions: if you have signs of infection such as spreading redness, yellow/white discharge or severe pain return to the emergency department Medical Decision Making 67 yo female with hx of dm, pvd on plavix, who comes in after she was slicing carrots and her hand slipped causing her to cut the left thumb, denies falls orother injuries. She has a 1cm abrasion on the palmar surface of the distal thumb, no subcutaneous fat or other tissue visualized, has full rom and intact cap refill and sensation. Wound is superficial and not deep enough for sutures. I placed skin adhesive on it and will have nursing place a dressing, bleeding controlled on discharge. Differential Diagnosis Differential Diagnosis: abrasion, lac HPI General Mode of arrival: ambulatory . Date/Time Provider Initiated Documentation: 01/03/23 12:40 . Limitations to Documentation: no limitations . Information obtained by: patient . History of Present Illness 67 year old F presents to the emergency department with the chief complaint of left thumb injury, described as mild, with intensity rated at 3. Quality is described as aching, and is localized to the left and upper extremity. Patient reports no radiation. Patient started experiencing this hour(s) (2) and it has been constant. No relieving factors improve symptom(s), No exacerbating factors reported . Patient did receive the following treatments prior to arrival, none Related Data Home Medications Medication Instructions Recorded Confirmed blood-glucose meter #1 ea 05/09/20 01/03/23 lancets 28 gauge (FreeStyle #100 ea 05/27/21 01/03/23 Lancets) clopidogrel 75 mg tablet (Plavix) 75 mg PO DAILY #90 tabs 04/16/22 01/03/23 atorvastatin 20 mg tablet 20 mg PO QHS #90 tabs 07/16/22 01/03/23 blood sugar diagnostic (OneTouch #100 ea 07/16/22 01/03/23 Verio test strips) verapamil 40 mg tablet 40 mg PO DAILY #90 tabs 10/01/22 01/03/23 pen needle, diabetic 31 gauge x #100 ea 10/15/22 01/03/23 5/16 (BD Ultra-Fine Short Pen Needle) glipizide 10 mg tablet, extended 10 mg PO BID #180 tab-caps 11/12/22 01/03/23 release 24 hr metformin 500 mg tablet,extended 1,000 mg PO BID #360 tabs 11/12/22 01/03/23 release 24 hr varenicline 0.5 mg (11)-1 mg (42) See Rx Instructions PO DIRECTED 11/12/22 12/18/22 tablets in a dose pack (Chantix #53 dose pk Starting Month Box) duloxetine 60 mg capsule,delayed 60 mg PO DAILY #90 caps 12/04/22 01/03/23 release insulin glargine 100 unit/mL (3 10 unit (0.1 mL) subcut DAILY #4 12/04/22 01/03/23 mL) subcutaneous pen (Lantus SYRGS Solostar U-100 Insulin) blood-glucose sensor (Dexcom G7 #1 ea 12/10/22 01/03/23 Sensor device) Previous Rx's Medication Instructions Recorded blood-glucose meter #1 ea 05/09/20 lancets 28 gauge (FreeStyle #100 ea 05/27/21 Lancets) clopidogrel 75 mg tablet (Plavix) 75 mg PO DAILY #90 tabs 04/16/22 atorvastatin 20 mg tablet 20 mg PO QHS #90 tabs 07/16/22 blood sugar diagnostic (OneTouch #100 ea 07/16/22 Verio test strips) verapamil 40 mg tablet 40 mg PO DAILY #90 tabs 10/01/22 pen needle, diabetic 31 gauge x #100 ea 10/15/22 5/16 (BD Ultra-Fine Short Pen Needle) glipizide 10 mg tablet, extended 10 mg PO BID #180 tab-caps 11/12/22 release 24 hr metformin 500 mg tablet,extended 1,000 mg PO BID #360 tabs 11/12/22 release 24 hr varenicline 0.5 mg (11)-1 mg (42) See Rx Instructions PO DIRECTED 11/12/22 tablets in a dose pack (Chantix #53 dose pk Starting Month Box) duloxetine 60 mg capsule,delayed 60 mg PO DAILY #90 caps 12/04/22 release insulin glargine 100 unit/mL (3 10 unit (0.1 mL) subcut DAILY #4 12/04/22 mL) subcutaneous pen (Lantus SYRGS Solostar U-100 Insulin) blood-glucose sensor (Dexcom G7 #1 ea 12/10/22 Sensor device) Allergies Allergy/AdvReac Type Severity Reaction Status Date / Time empagliflozin AdvReac Intermediate Vaginal Verified 01/03/23 12:36 [From Jardiance] yeast infections omeprazole [From Prilosec] AdvReac Unknown diarrhea Verified 01/03/23 12:36 General Stated Complaint: Trauma DAR: 4 Review of Systems All systems reviewed & are unremarkable except as noted in HPI and below Constitutional Constitutional: Denies chills, Denies fever(s) and Denies weakness Cardiovascular Cardiovascular: Denies chest pain and Denies dyspnea Respiratory Respiratory: Denies cough and Denies dyspnea Gastrointestinal Gastrointestinal: Denies abdominal pain, Denies nausea and Denies vomiting Musculoskeletal Musculoskeletal: Denies joint swelling Neurologic Neurologic: Denies weakness PFSH All Active Problems (Updated 01/03/23 @ 12:55 by Tommie Calvin MD) Abrasion of left thumb (Acute) Type 2 diabetes mellitus with peripheral vascular disease (Chronic) Peripheral vascular disease of extremity with claudication (Chronic) Stenosis of left subclavian artery (Chronic) Hyperlipidemia (Chronic) COPD (chronic obstructive pulmonary disease) (Chronic) Cigarette smoker (Chronic) Depressive disorder (Chronic) DDD (degenerative disc disease), lumbar (Chronic) Osteoarthritis of left hip (Chronic) Diabetic peripheral neuropathy (Chronic) Gastroesophageal reflux disease (Chronic) Onychomycosis (Chronic) Serrated adenoma of colon (Chronic) Tubulovillous adenoma of colon (Chronic) Medical History Acute pancreatitis CVA (cerebral vascular accident) Surgical History History of bilateral tubal ligation S/P section S/P cholecystectomy S/P laparoscopic procedure Family History Mother Alcohol use disorder Father Alcohol use disorder Sister No problems noted. Sister No problems noted. Sister No problems noted. Sister Ovarian cancer Sister No problems noted. Sister No problems noted. Sister No problems noted. Brother Multiple sclerosis Brother No problems noted. Brother No problems noted. Brother No problems noted. Brother No problems noted. Son No problems noted. Daughter No problems noted. Maternal Grandfather No problems noted. Maternal Grandmother No problems noted. Paternal Grandfather No problems noted. Paternal Grandmother No problems noted. 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 Pets and animals: Yes Pets and animals: cat(s) Sexually active: No What is your relationship status?: refused to answer How often do you talk on the phone with friends or family?: twice per week How often do you get together with friends or relatives?: never How often do you attend oriental orthodox or islam services?: decline to answer Do you belong to any clubs or organized social groups?: no Panel score (0-1 are the most socially isolated patients): 0 What type of physical activity do you participate in: walking Duration: < 15 minutes/day Frequency: 5-6 times per week Ofelia/Sikhism: No preference Seatbelt use: always Helmet use: No Drive intox or ride w/intox coal tram driver: No Do you feel safe at home: Yes Do you feel safe in your relationship?: Yes Exam Const General: no acute distress Orientation: alert HENMT Head: normal to inspection Ears: external ears normal General nose exam: external nose normal Mouth: moist mucous membranes Eyes General: appearance normal, both eyes and all related structures Neck Neck: normal visual inspection Resp Effort & Inspection: normal respiratory effort and able to speak in complete sentences Cardio Rate: regular rate Skin General skin exam: no rashes or lesions noted Neuro General: patient alert and patient oriented x3 Extrem General: full ROM and capillary refill normal Psych Mental Status: mental status grossly normal Course Vital Signs Vital signs: Vital Signs Temperature 36.6 C 01/03/23 12:37 Pulse 92 H 01/03/23 12:37 Respiratory Rate 15 01/03/23 12:37 Pulse Oximetry 96 01/03/23 12:37 Temperature 36.6 C 01/03/23 12:37 Temperature Source Oral 01/03/23 12:37 Pulse 92 H 01/03/23 12:37 Respiratory Rate 15 01/03/23 12:37 Blood Pressure Position Supine 01/03/23 12:37 Pulse Oximetry 96 01/03/23 12:37 Oxygen Delivery Method Room Air 01/03/23 12:37 Oxygen Flow Rate 0 01/03/23 12:37 Pain Level 0 01/03/23 12:37
== END 2023-01-03 13:42 | disposition home or self-care (01) ==
PROVIDERS: Emergency Provider Emergency Medicine; PCP Nurse Practitioner Family
DX: S60.312A Abrasion of left thumb, initial encounter (principal); E11.9 Type 2 diabetes mellitus without complications; Z23 Encounter for immunization; Z86.718 Personal history of other venous thrombosis and embolism; Z79.02 Long term (current) use of antithrombotics/antiplatelets; Z79.84 Long term (current) use of oral hypoglycemic drugs; Z79.4 Long term (current) use of insulin; Z86.73 Personal history of transient ischemic attack (TIA), and cerebral infarction without residual deficits; W26.9XXA Contact with unspecified sharp object(s), initial encounter; Y93.G1 Activity, food preparation and clean up
CPT/HCPCS: 90471; 99282; 99283

== ENCOUNTER 2023-01-16 00:16 | Outpatient (CLI) | payer MEDICARE, MEDICAID, SELFPAY ==
--- NOTE | 2023-01-16 07:00 | DI.CTLCSR_ITS ---
Exam(s) CT CHEST LUNG CANCER SCREEN EXAM: CT CHEST LUNG CANCER SCREEN CLINICAL HISTORY: Screening for lung cancer,CURRENT SMOKER, F17.210. TECHNIQUE: Imaging Protocol: Low Dose Technique CONTRAST MATERIAL: None COMPARISON: No exams were available for comparison FINDINGS: CHEST: LUNGS: There are no ominous pulmonary nodules. There are no confluent infiltrates. No pleural effusi ons. MEDIASTINUM: There is no obvious hilar nor mediastinal adenopathy. CARDIAC: Heart size is normal. There is no pericardial effusion.Caliber of the thoracic aorta is wit hin normal limits. OTHER: Attic steatosis noted. OSSEOUS: No significant osseous lesions.. IMPRESSION: 1. No significant lung nodules. 2. No infiltrates nor pleural effusions nor obvious intrathoracic adenopathy. 3. Lung RADS Cat 1 - Negative: No nodules and definitely benign nodules Lung-RADS 1.0 CATEGORIES: Category 0 - Prior chest CT exam(s) being located for comparison. Category 1 - Annual screening in 12 months. No nodules or definitely benign nodules. Category 2 - Annual screening in 12 months. Benign appearance. Nodules with low likelihood of becomin g active cancer. Category 3 - 6-month follow-up. Probably benign. Short-term follow-up suggested. Nodules with low lik elihood of becoming active cancer. Category 4A - 3-month follow-up and CT/PET if >8 mm in size. Suspicious finding. Findings which requi re additional testing. Category 4B - Findings which require additional testing and tissue sampling. Category 4X - Category 3 or 4 nodules with additional features or imaging findings that increases the suspicion of malignancy. Modifier S- Potentially clinically significant findings (non lung cancer) RADIATION DOSE DELIVERED: 68.4mGy.cm Total DLP DATA REPOSITORY: All CT scans at this facility are submitted to the National Radiology Data Registry (NRDR) Dose Index Registry (DIR) with the [employer] ([employer]). RADIATION OPTIMIZATION: All CT scans at this facility use at least one of these dose optimization te chniques: automated exposure control; mA and/or kV adjustment per patient size (includes targeted exa ms where dose is matched to clinical indication); or iterative reconstruction.
== END 2023-01-16 00:36 ==
LOC: DI 00:16
PROVIDERS: PCP Nurse Practitioner Family; Visit Provider Nurse Practitioner Family
DX: F17.210 Nicotine dependence, cigarettes, uncomplicated (principal)
CPT/HCPCS: 71271

== ENCOUNTER 2023-02-05 02:26 | Outpatient (CLI) | payer MEDICARE, MEDICAID, SELFPAY ==
[2023-02-05 10:51] LABS: ALT 43 U/L (14-59); AST 21 U/L (15-37); Albumin 3.9 g/dL (3.4-5.0); Alkaline Phosphatase 89 U/L (46-116); Anion Gap 10.8 mmol/L (3-11); BUN 23 mg/dL (7-18); Bilirubin, Total 0.2 mg/dL (0.2-1.0); CO2 27.2 mmol/L (21.0-32.0); CREATININE 0.9 mg/dL (0.55-1.02); Calcium 9.1 mg/dL (8.5-10.1); Chloride 103 mmol/L (98-107); Cholesterol 150 mg/dL (<200); Estimated GFR 70.07 (mL/min/1.73m2); Glucose 161 mg/dL (74-106); HDL Cholesterol 34 mg/dL (40-60); Potassium 3.9 mmol/L (3.5-5.1); Sodium 141 mmol/L (136-145); TSH (W/Ref FT4) 2.44 uIU/mL (0.36-3.74); Total Protein 8.3 g/dL (6.4-8.2); Triglyceride 490 mg/dL (<150)
[2023-02-05 11:09] LABS: LDL CHOLESTEROL 67 mg/dL (<100)
[2023-02-06 09:28] LABS: Hepatitis C Ab w Rflx HCV PCR Negative (Negative)
[2023-02-06 09:37] LABS: HIV-1/2 Ag & Ab Screen Negative (Negative)
== END 2023-02-05 02:27 | disposition home or self-care (01) ==
PROVIDERS: PCP Nurse Practitioner Family; Visit Provider Nurse Practitioner Family
DX: Z11.9 Encounter for screening for infectious and parasitic diseases, unspecified (principal); E78.5 Hyperlipidemia, unspecified; Z11.4 Encounter for screening for human immunodeficiency virus [HIV]; Z11.59 Encounter for screening for other viral diseases
CPT/HCPCS: 36415; 80053; 80061; 83721; 86803; 87389; 84443

== ENCOUNTER 2023-04-03 00:44 | Outpatient (CLI) | payer MEDICARE, MEDICAID, SELFPAY ==
--- NOTE | 2023-04-03 07:15 | DI.CT_ITS ---
Exam(s) CT ABDOMEN PELVIS W EXAM: CT ABDOMEN PELVIS W CLINICAL HISTORY: upper abdominal pain, pancreatitis?, R10.10. TECHNIQUE: Imaging Protocol: Axial computed tomography images with coronal and sagittal reformatted images were created and reviewed CONTRAST MATERIAL: Intravenous: Omnipaque 350 Contrast volume:100 ml Oral: yes COMPARISON: CT CT ABD AORTA CTA W RUNOFF from 05/27/2022 FINDINGS: ABDOMEN: Lung Bases: Normal where visualized. Liver: Hepatic steatosis, moderate to severe with some improvement from prior. No measurable mass. Gallbladder and biliary tract: Status post cholecystectomy. No biliary dilatation. Pancreas: Normal density, no abnormal calcifications or inflammatory process. Spleen: Normal. Kidneys: Normal size, contour and axis. No radiodense stones or obstructive uropathy. Left renal cys t. No suspicious masses seen. Adrenal glands: No masses seen. Vasculature: Abdominal aorta non-dilated. Severe atherosclerotic changes, heavily calcified with so me mural thrombus with narrowing of the luminal diameter distally. Iliac arteries are heavily calcif ied into least 50 percent stenosis, unchanged from prior. Severe calcification of the right external iliac artery with the occlusion and reconstitution distally. Common femoral arteries also heavily c alcified. SMA and celiac axis show no significant stenosis.. Venous structures are patent. Soft tissues: Unremarkable. PELVIS: Bladder: No gross wall thickening. No calculi.No focal mass. Bowel: No obstruction. No bowel wall thickening. No evidence of mesenteric ischemia. Appendix nor mal. Peritoneal cavity: No ascites, collection or mesenteric inflammatory response. Bones: Degenerative disc changes in the spine. Degenerative changes in the hips, severe on the left. Reproductive organs: Within normal limits. Lymph nodes: Unremarkable. Impression: Pancreas appears normal. No acute abnormalities identified. Severe vascular disease, similar to prior study. RADIATION DOSE DELIVERED: 763.15mGy.cm Total DLP DATA REPOSITORY: All CT scans at this facility are submitted to the National Radiology Data Registry (NRDR) Dose Index Registry (DIR) with the [employer] (ACR). RADIATION OPTIMIZATION: All CT scans at this facility use at least one of these dose optimization te chniques: automated exposure control; mA and/or kV adjustment per patient size (includes targeted exa ms where dose is matched to clinical indication); or iterative reconstruction.
[2023-04-03] MEDS: Barium Sulfate 2% W/V-Berry Smoothie 450 ML BTL 900 ML PO (08:40)
[2023-04-03 08:41] LABS: Abs Immature Grans 0.04 10^3/uL (0.0-0.06); Absolute Basophil Count 0.09 10^3/uL (0.0-0.2); Absolute Lymphocyte Count 3.73 10^3/uL (1.2-3.4); Absolute Monocyte Count 0.53 10^3/uL (0.1-0.8); Absolute Neutrophil Count 6.02 10^3/uL (1.2-6.7); Basophils % 0.8; Eosinophils % 1.9; HCT 43.5 % (36.0-46.0); HGB 15.1 g/dL (11.2-15.7); Immature Grans % 0.4; Lymphocytes % 35.2; MCH 31.8 pg (27.0-33.0); MCHC 34.7 % (32.0-36.0); MCV 92 fL (80-95); MPV 11.5 fL (8.0-11.0); Neutrophils % 56.7; Platelet Count 236 10^3/uL (130-400); RBC 4.75 10^6/uL (3.93-5.22); RDW 13.2 % (11.7-14.6); WBC 10.61 10^3/uL (4.4-10.8)
[2023-04-03 08:57] LABS: Calculated LDL 33 mg/dL (<100); Cholesterol 146 mg/dL (<200); HDL Cholesterol 34 mg/dL (40-60); Triglyceride 396 mg/dL (<150)
[2023-04-03 09:02] LABS: ALT 38 U/L (14-59); AST 17 U/L (15-37); Albumin 3.6 g/dL (3.4-5.0); Alkaline Phosphatase 82 U/L (46-116); Anion Gap 10.3 mmol/L (3-11); BUN 23 mg/dL (7-18); Bilirubin, Total 0.2 mg/dL (0.2-1.0); CO2 28.7 mmol/L (21.0-32.0); CREATININE 0.9 mg/dL (0.55-1.02); Calcium 9.3 mg/dL (8.5-10.1); Chloride 103 mmol/L (98-107); Estimated GFR 70.07 (mL/min/1.73m2); Glucose 195 mg/dL (74-106); Lipase 31 U/L (16-77); Potassium 4.1 mmol/L (3.5-5.1); Sodium 142 mmol/L (136-145); Total Protein 7.6 g/dL (6.4-8.2)
[2023-04-03] MEDS: Omnipaque 350 MG/ML 100 ML BTL IJ (10:16)
[2023-04-03] MEDS: Normal Saline - Diluent 50 ML VIAL IJ (10:20)
[2023-04-06 16:09] LABS: Apolipoprotein B, Serum 68 mg/dL (48-124); Beta VLDL Cholesterol Not Detected mg/dL (<15); Beta VLDL Triglycerides Not Detected mg/dL (<15); Cholesterol, Total, CDC 142 mg/dL; Chylomicron Cholesterol 9 mg/dL; Chylomicron Triglycerides 182 mg/dL; HDL Cholesterol, CDC 32 mg/dL (>=50); LDL Cholesterol 72 mg/dL; LDL Triglycerides 74 mg/dL (<=50); Lp(a) Cholesterol <5 mg/dL (<5); LpX Not detected; Triglycerides, CDC 414 mg/dL; VLDL Cholesterol 29 mg/dL (<30); VLDL Triglycerides 119 mg/dL (<120)
== END 2023-04-03 01:04 ==
LOC: DI 00:46
PROVIDERS: PCP Nurse Practitioner Family; Visit Provider Nurse Practitioner Family
DX: I73.9 Peripheral vascular disease, unspecified (principal); E11.51 Type 2 diabetes mellitus with diabetic peripheral angiopathy without gangrene; I77.1 Stricture of artery
CPT/HCPCS: 80053; 80061; 83690; 74177; 82172; 82664; 85025; J3490

== ENCOUNTER → 2023-04-13 08:55 | Outpatient (BNVA) | payer MEDICARE, MEDICAID, SELFPAY | PROVIDERS: PCP Nurse Practitioner Family; Referring Provider Nurse Practitioner Family; Visit Provider Student in an Organized Health Care Education/Training Program | DX: M16.12 Unilateral primary osteoarthritis, left hip (principal); E11.9 Type 2 diabetes mellitus without complications; I73.9 Peripheral vascular disease, unspecified | CPT/HCPCS: 99213 ==

== ENCOUNTER 2023-04-17 01:28 | Outpatient (CLI) | payer MEDICARE, MEDICAID, SELFPAY ==
[2023-04-17 12:06] LABS: HCT 46.4 % (36.0-46.0); HGB 15.4 g/dL (11.2-15.7); MCH 30.3 pg (27.0-33.0); MCHC 33.2 % (32.0-36.0); MCV 91 fL (80-95); MPV 10.2 fL (8.0-11.0); Platelet Count 244 10^3/uL (130-400); RBC 5.08 10^6/uL (3.93-5.22); RDW 13.1 % (11.7-14.6); RDW-SD 44.5 fL; WBC 11.78 10^3/uL (4.4-10.8)
[2023-04-17 13:19] LABS: Anion Gap 9.5 mmol/L (3-11); BUN 20 mg/dL (7-18); CO2 28.5 mmol/L (21.0-32.0); CREATININE 0.9 mg/dL (0.55-1.02); Calcium 9.6 mg/dL (8.5-10.1); Chloride 102 mmol/L (98-107); Estimated GFR 70.07 (mL/min/1.73m2); Glucose 117 mg/dL (74-106); Sodium 140 mmol/L (136-145)
== END 2023-04-17 01:29 | disposition home or self-care (01) ==
LOC: LBO 01:29
PROVIDERS: PCP Nurse Practitioner Family; Visit Provider Student in an Organized Health Care Education/Training Program
DX: M25.552 Pain in left hip (principal); M16.12 Unilateral primary osteoarthritis, left hip; Z01.818 Encounter for other preprocedural examination; Z01.812 Encounter for preprocedural laboratory examination
CPT/HCPCS: 36415; 80048; 85027

== ENCOUNTER 2023-04-21 08:15 | Day surgery (SDC) | payer MEDICARE, MEDICAID, SELFPAY ==
[2023-04-21] VITALS (8 sets, daily range): BP systolic 113–139; BP diastolic 57–78; PULSE 79–92; RESP 16–22; TEMP 36.2–36.7; O2SAT 93–100; BMI 27.6
--- NOTE | 2023-04-21 08:26 | ANES.PREOP_ITS ---
General Info Date of Service Date Performed: 04/21/23 Height: 5 ft 4 in Weight: 73.028 kg Body Mass Index (BMI): 27.6 Surgical Procedure: Operation Date: 04/21/23 11:50 Proposed Procedure Side Surgeon p Hip Total Hip Anterior Left Jorge Rivera MD Meds Allergies and Home Medications Allergies Allergy/AdvReac Type Severity Reaction Status Date / Time empagliflozin AdvReac Intermediate Vaginal Verified 04/21/23 08:57 [From Jardiance] yeast infections omeprazole [From Prilosec] AdvReac Unknown diarrhea Verified 04/21/23 08:57 Home Medication Medication Instructions Recorded blood-glucose meter #1 ea 05/09/20 clopidogrel 75 mg tablet (Plavix) 75 mg PO DAILY #90 tabs 04/16/22 atorvastatin 20 mg tablet 20 mg PO QHS #90 tabs 07/16/22 metformin 500 mg tablet,extended 1,000 mg PO BID #360 tabs 11/12/22 release 24 hr duloxetine 60 mg capsule,delayed 60 mg PO DAILY #90 caps 12/04/22 release blood-glucose sensor ([employer] G7 #1 ea 12/10/22 Sensor device) pen needle, diabetic 31 gauge x #100 ea 01/26/2302/10 (BD Ultra-Fine Short Pen Needle) ondansetron HCl 8 mg tablet 8 mg PO TID PRN nausea and 03/13/23 vomiting #60 tabs losartan 25 mg tablet 25 mg PO DAILY #90 tabs 04/01/23 varenicline 1 mg tablet 1 mg PO BID #168 tabs 04/01/23 blood sugar diagnostic (OneTouch #200 ea 04/02/23 Verio test strips) lancets 28 gauge #200 ea 04/02/23 glipizide 10 mg tablet, extended 10 mg PO DAILY 04/13/23 release 24 hr insulin glargine 100 unit/mL (3 12 unit subcut HS 04/13/23 mL) subcutaneous pen (Lantus Solostar U-100 Insulin) amoxicillin 875 mg-potassium 1 tab PO Q12H #14 tabs 04/17/23 clavulanate 125 mg tablet Current Visit Medications: Current Medications Generic Name Dose Route Start Last Admin Trade Name Freq PRN Reason Stop Dose Admin Acetaminophen 1,000 mg 04/21/23 06:00 Acetaminophen 500 Mg Tab PO 04/21/23 16:00 PREOP LUPE Acetaminophen 1,000 mg 04/21/23 08:30 Acetaminophen 500 Mg Tab PO 05/21/23 08:29 TID LUPE Celecoxib 400 mg 04/21/23 06:00 Celecoxib 200 Mg Cap PO 04/21/23 16:00 PREOP LUPE Celecoxib 200 mg 04/21/23 08:30 Celecoxib 200 Mg Cap PO 05/21/23 08:29 BID LUPE Hydromorphone HCl 0.5 mg 04/21/23 07:25 Hydromorphone 2 Mg/Ml Syr IVP 05/21/23 07:24 Q2H PRN PRN Tranexamic Acid 1,000 mg/ 60 mls @ 360 mls/hr 04/21/23 06:00 Sodium Chloride IV 04/21/23 16:00 PREOP LUPE Ringer's Solution 1,000 mls @ 80 mls/hr 04/21/23 06:00 IV 05/20/23 23:59 INFUSION LUPE Cefazolin Sodium/Dextrose 2 gm in 50 mls @ 100 mls/hr 04/21/23 06:00 Ancef Duplex IVPB 05/20/23 23:59 PREOP LUPE Cefazolin Sodium/Dextrose 1 gm in 50 mls @ 100 mls/hr 04/21/23 08:00 Ancef Duplex IVPB 04/22/23 00:29 Q8H LUPE IV Miscellaneous Supplies 1 each 04/21/23 06:00 Iv Access IV 05/20/23 23:59 DIRECTED LUPE Ondansetron HCl 4 mg 04/21/23 07:25 Ondansetron 4 Mg/2 Ml Vial IVP 05/21/23 07:24 Q6H PRN PRN Nausea Oxycodone HCl 0 mg 04/21/23 07:25 Oxycodone 5 Mg Tab PO 05/21/23 07:24 Q3H PRN PRN Pain Sodium Chloride 0 ml 04/21/23 06:00 Normal Saline Flush 10 Ml Syr IV 05/20/23 23:59 PRN PRN Sodium Chloride 0 ml 04/21/23 06:00 Normal Saline 10 Ml Vial IJ 05/20/23 23:59 DIRECTED PRN Sterile Water 0 ml 04/21/23 06:00 Water,Injection,Sterile 10 Ml Vial IJ 05/20/23 23:59 DIRECTED PRN PFSH Active Problems Active Problems: Problem Status Onset Code DDD (degenerative disc disease), lumbar M51.36 Depressive disorder F32.9 Gastroesophageal reflux disease K21.9 Hyperlipidemia E78.5 Peripheral vascular disease of extremity with claudication I73.9 Osteoarthritis of left hip M16.12 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 states apparently she had 2 others but doesn't remeber those dates. Pt. states no risidual deficits from the stroke States f/u with neuro Van straten 2017 2019 Left retinal detachment Surgical History Surgical History History of bilateral tubal ligation S/P section S/P cholecystectomy S/P laparoscopic procedure Tobacco Smoking/Tobacco Use Status: Current every day Tobacco Type: cigarettes Second hand exposure: Yes Alcohol Alcohol Intake: never Substance Use Substance use: Never Substance use type: does not use Vital Signs and Lab Results Vital Signs Most Recent Vital Signs in EMR: Temp Pulse Resp BP Pulse Ox 36.4 C L 92 H 16 139/78 97 04/21/23 08:39 04/21/23 08:39 04/21/23 08:39 04/21/23 08:39 04/21/23 08:39 Lab Results Blood Type / Crossmatch: No Data to Display Complete Blood Count: White Blood Count 11.78 10^3/uL (4.4-10.8) H 04/17/23 12:00 Red Blood Count 5.08 10^6/uL (3.93-5.22) 04/17/23 12:00 Hemoglobin 15.4 g/dL (11.2-15.7) 04/17/23 12:00 Hematocrit 46.4 % (36.0-46.0) H 04/17/23 12:00 Platelet Count 244 10^3/uL (130-400) 04/17/23 12:00 Complete Metabolic Panel: Sodium 140 mmol/L (136-145) 04/17/23 12:00 Potassium 4.0 mmol/L (3.5-5.1) 04/17/23 12:00 Chloride 102 mmol/L (98-107) 04/17/23 12:00 Carbon Dioxide 28.5 mmol/L (21.0-32.0) 04/17/23 12:00 BUN 20 mg/dL (7-18) H 04/17/23 12:00 Creatinine 0.9 mg/dL (0.55-1.02) 04/17/23 12:00 Est GFR (CKD-EPI 2020) 70.07 (mL/min/1.73m2) 04/17/23 12:00 Calcium 9.6 mg/dL (8.5-10.1) 04/17/23 12:00 Albumin 3.6 g/dL (3.4-5.0) 04/03/23 08:25 Glucose 117 mg/dL (74-106) H 04/17/23 12:00 Hemoglobin A1c 6.9 % (4.5-5.7) H 04/01/23 07:58 Liver Function Panel: Alanine Aminotransferase (ALT/SGPT) 38 U/L (14-59) 04/03/23 08: 25 Aspartate Amino Transf (AST/SGOT) 17 U/L (15-37) 04/03/23 08:25 Coagulation Panel: No Data to Display Cardiac Panel: No Data to Display Arterial Blood Gas: No Data to Display Venous Blood Gas: No Data to Display Pancreas Panel: Lipase 31 U/L (16-77) 04/03/23 08:25 Thyroid Panel: No Data to Display Infectious Disease: No Data to Display Blood Cultures: No Data to Display Toxicology Panel: No Data to Display Imaging and Studies Imaging and Studies Study information below may be from another EMR and interpreted by another provider. Please see original notes in EMR for more complete details. EKG Summary: DATE/TIME OF SERVICE: 01/24/211646 : 1955PERFORMING LOCATION: ID APPROVED REPORT Exam: Resting ECG Patient Location: E HR:87 bpm ECG Measurements Heart Rate 87 AXIS IA 151 P 55 QRSd 79 QRS 47 QT 386 T56 QTc 465 Conclusion Sinus rhythm...normal P axis, V-rate 60- 99 Echocardiogram Summary: Date of Exam: 06/07/20ex: F Admission Date: 06/07/20 : 1955 Age: 64 Exam(s) a US:US echocardiogram APPROVED REPORT EXAM: Comprehensive 2D, Doppler, and color-flow Echocardiogram Patient Location: Out-Patient Tribunal Member: Debbie Galindo RDCS (AE) Indications: Stroke, CVA Other Information Study Quality: Adequate Conclusion Left Ventricle : The left ventricle is normal size. The left ventricular systolic function is normal. The left ventricular ejection fraction is within the normal range. There is normal left ventricular wall thickness. There is normal LV segmental wall motion. Mild diastolic dysfunction is present (impaired relaxation pattern). LVEF is 55%. Right Ventricle : The right ventricle is normal size. The right ventricular systolic function is normal. Atria : The left atrium size is normal. The right atrium size is normal. Valves: There are no hemodynamically significant valvular lesions. Great Vessels : The aortic root is normal in size. The ascending aorta is mildly dilated. Aortic arch is not well visualized. IVC is normal in size and collapses >50% with inspiration. There is no prior study available for comparison. Carotid Artery Summary:: Date of Exam: 05/11/20ex: F Admission Date: 05/11/20 : 1955 Age: 64 Exam(s) a US:US carotid EXAM: US CAROTID CLINICAL HISTORY: frequent falls,bilat claudification of lower limb,smoker,low hdl,r29.6. TECHNIQUE: Ultrasound carotids performed using grayscale, color-flow, and spectral Doppler imaging. COMPARISON: US US carotid from 02/24/2019 FINDINGS: RIGHT CAROTID ARTERY: Plaque: [id number] calcific plaque in the carotid bulb and proximal ICA. Velocity elevation: No hemodynamically significant velocity elevation. LEFT CAROTID ARTERY: Plaque: [id number] calcific plaque in the carotid bulb and proximal ICA. Velocity elevation: No hemodynamically significant velocity elevation. VERTEBRAL ARTERIES: Antegrade flow. Measurements: R Bulb: 70.7cm/s PS / 19.9cm/s ED R CCA: 75.2cm/s PS / 18cm/s ED R ECA: PS / ED R ICA Prox: 114.6cm/s PS /29.4cm/s ED R ICA Mid: 104.1cm/s PS / 28.4cm/s ED R ICA Distal: 65.3cm/s PS /22.3cm/s ED R Vert: 27.3cm/s PS / 8.3cm/s ED R SVR: 1.52 R DVR: 1.63 L Bulb: 83.1cm/s PS /21.7cm/s ED L CCA: 69.4cm/s PS / 19.9cm/s ED L ECA: PS / ED L ICA Prox:94.85cm/s PS / 24.95cm/s ED L ICA Mid: 90.7cm/sPS / 34.2cm/s ED L ICA Distal: 100.8cm/s PS / 34.7cm/s ED L Vert: 41.5cm/s PS / 16.3cm/s ED L SVR: 1.45 L DVR: 1.53 IMPRESSION: No evidence for hemodynamically significant carotid stenosis. Anesthesia Assessment and Plan Anesthesia History Personal History: No History of Anesthesia Complications Family History: No Family History of Anesthesia Complications Exercise Tolerance Exercise Tolerance: Metabolic Equivalents>4 Pertinent Negatives Pertinent Negatives: No Symptoms of GERD (Last had GERD symptoms over a year ago), No Major Cardiovascular Symptoms or Complaints and No History of CVA/TIA Cardiac & Pulmonary Exam Cardiac Exam: Normal S1/S2 Heart Sounds Pulmonary Exam: Clear Bilateral Breath Sounds Implantable Cardiac Device Does patient have a Pacemaker or an ICD?: No Airway Exam Known Difficult Airway: No Mallampati Class: 3 Mouth Opening: Normal (> 3cm) Thyromental Distance: Less than 3 cm Neck Range of Motion: Full ROM Neck Circumference: Thick Teeth Condition: Normal Dentition and Removable Dentures/Plates Upper ASA Classification ASA Score: ASA 3 Emergency Case?: No NPO Status NPO Status: NPO Clears >2 hours, Solids >8 hours Anesthesia Plan Resuscitation Status: Full Code Anesthesia Technique: Spinal Anesthesia (GA as a backup) Airway Planned: Natural Airway Monitors Used: Standard Monitors
[2023-04-21] MEDS: Celecoxib 200 MG CAP 400 MG PO (08:30)
[2023-04-21] MEDS: Acetaminophen 500 MG TAB 1000 MG PO (08:30)
[2023-04-21] MEDS: Lactated Ringers 1,000 ML 80 ML IV (08:55)
[2023-04-21] MEDS: ceFAZolin 2 GM/50 ML BAG IVPB (10:22)
--- NOTE | 2023-04-21 11:45 | DI.RAD_ITS ---
Exam(s) XR HIP LT IN OR EXAM: XR HIP LT IN OR CLINICAL HISTORY: total hip TECHNIQUE: 2D and realtime digital imaging was performed. CONTRAST MATERIAL: Refer to procedure report. COMPARISON: CR XR HIP LT COMPLETE AP PELVIS from 10/06/2022 FINDINGS: Fluoroscopy was provided for Dr. Rivera during the performance of a placement of a left total hip replacement.. Please refer to the procedure report for complete details. Ka,r=3.11 mGy IMPRESSION: RADIATION DOSE DELIVERED:
--- NOTE | 2023-04-21 12:04 | DSE_ITS ---
Date of service: 04/21/23 Time of Service: 12:10 Discharge Plan Disposition Patient Disposition: Home Condition: Good Discharge Details Reason For Visit: Left hip DJD Attending Provider: Jorge Rivera Primary Care Provider: Maribeth Fish Home Meds and New Rx's Prescriptions: New celecoxib [Celebrex] 200 mg capsule 200 mg PO BID PRNQty: 60 0RF Rx Instructions: Take one tablet twice daily for pain and inflammation acetaminophen 500 mg tablet 1,000 mg PO Q8H PRN Qty: 90 0RF Rx Instructions: Take two tablets up to every 8 hours as needed for pain pantoprazole 40 mg tablet,delayed release (DR/EC) 40 mg PO DAILY Qty: 14 0RF docusate sodium [Colace] 100 mg capsule 100 mg PO BID Qty: 30 0RF oxycodone 5 mg tablet 5 mg PO Q6H PRNQty: 12 0RF Rx Instructions: Take one tablet up to every 6 hours as needed for severe postoperative pain cefadroxil 500 mg capsule 500 mg PO BID Qty: 14 0RF Continued glipizide 10 mg tablet extended release 24hr 10 mg PO DAILY insulin glargine [Lantus Solostar U-100 Insulin] 100 unit/mL (3 mL) insulin pen 12 unit subcut HS ondansetron HCl 8 mg tablet 8 mg PO TID PRN (Reason: nausea and vomiting) Qty: 60 0RF atorvastatin 20 mg tablet 20 mg PO QHS Qty: 90 3RF metformin 500 mg tablet extended release 24 hr 1,000 mg PO BID Qty: 360 3RF varenicline 1 mg tablet 1 mg PO BID Qty: 168 0RF losartan 25 mg tablet 25 mg PO DAILY Qty: 90 3RF amoxicillin-pot clavulanate 875-125 mg tablet 1 tab PO Q12H Qty: 14 0RF Rx Instructions: Take 1 tablet twice a day for 7 days (DME) blood-glucose meter Misc See Rx Instructions .ROUTE .MEDSUPPLY Qty: 1 0RF Rx Instructions: As directed clopidogrel [Plavix] 75 mg tablet 75 mg PO DAILY Qty: 90 3RF duloxetine 60 mg capsule,delayed release(DR/EC) 60 mg PO DAILY Qty: 90 3RF Rx Instructions: Take 1 capsule daily (DME) Dexcom G7 Sensor Device See Rx Instructions .Route Qty: 1 3RF Rx Instructions: Continuous glucose monitor (DME) pen needle, diabetic [BD Ultra-Fine Short Pen Needle] 31 gauge x 5/16 needle See Rx Instructions .MEDSUPPLY Qty: 100 3RF Rx Instructions: Use with pen daily (DME) lancets 28 gauge misc 1 ea Miscellaneous DAILY Qty: 200 3RF Rx Instructions: Check blood sugar twice a day (DME) OneTouch Verio test strips Strip See Rx Instructions .ROUTE .MEDSUPPLY Qty: 200 4RF Rx Instructions: Check blood sugar twice a day Discharge Instructions Additional Instructions: Total Hip Discharge Instructions Activity: The most important activity is to walk. You should try to take short walks a few times a day. You have no restrictions on movement or positioning, but do not try to force what you do. You will find some stiffness and weakness with hip flexion (lifting your knee). Do not try to strengthen this too early, continue to practice walking and stairs and this will come. - Outpatient physical therapy can be helpful to help return you to a normal gait and improve your flexibility and strength. This can start around 2 weeks. For some patients, it?s not necessary. Usually this is determined at the time of discharge or at the first post-operative visit. - You should wear the JOSE hose on both legs for 2 weeks. Dressing: Keep the surgical dressing in place for at least one week. After the first week it may be removed and replace with light gauze and tape or nothing. It may get wet after 3 days but avoid soaking the dressing. If it gets wet, just lightly pat dry. It is important to always keep some gauze between skin folds, especially when you are sitting. Spend some time with the wound exposed when you are lying flat as the incision does wrinkle onto itself. Medications: - You should take Tylenol and an anti-inflammatory Celebrex as your primary pain control medications. If the Celebrex is too expensive or not covered, please call the office for another alternative (Advil/Ibuprofen or Naproxen/Aleve). - You have been prescribed a stronger pain medication Oxycodone for breakthrough pain, take as needed as prescribed. - You have also been prescribed a stomach acid reduction agent Pantoprozole to help reduce stomach acid and reflux. - You will be taking your baseline Clopidogrel - resume this tomorrow for anticoagulation for DVT prevention unless instructed otherwise. - If you have constipation you should take Colace (which has been prescribed) or Miralax (which is available [id number]). It takes most people 3-4 days to have a bowel movement. Follow-up: 2 weeks If you have any acute concerns or questions, please do not hesitate to contact the office at [phone]. You may contact Dr. Rivera with any questions after hours through the hospital at [phone] or on his cell phone at [phone]. Stand Alone Forms: Anesthesia Discharge Inst., Sofya Arrieta ([facility]) Referrals: Jorge Rivera MD [ [facility] STAFF PHYSICIAN] - Equipment/Supplies: Walker Activity:: Elevate Remove Dressings/Wound Care:: Do Not Remove Shower/Bathe:: Cover Diet:: As Tolerated Discharge Orders Discharge Orders: Discharge Order (Routine); Ordered 04/21/23 Ordered By: Jorge Rivera DS: Summary Time Spent with Patient providing and/or coordinating discharge services: Less than 30 minutes Status at Discharge Functional status at discharge: uses cane/walker Overall status at discharge: patient is progressing back to baseline Mental Status: mental status grossly normal Speech and Movement: speech and movement normal Mood: congruent mood Affect: normal affect Exam Psych Mental Status: mental status grossly normal Speech and Movement: speech and movement normal Mood: congruent mood Affect: normal affect DS: Data Vitals/I&O Vitals and I&O: Vital Signs Temperature 97.5 F L 04/21/23 08:39 Pulse 92 H 04/21/23 08:39 Pulse Rhythm Regular 04/21/23 08:39 Respiratory Rate 16 04/21/23 08:39 Blood Pressure 139/78 04/21/23 08:39 Pulse Oximetry 97 04/21/23 08:39 Oxygen Delivery Method Room Air 04/21/23 08:39 Oxygen Flow Rate 0 04/21/23 08:39 Pain Level 7 04/21/23 08:39 Intake & Output 04/20/23 04/21/23 04/21/23 23:59 11:59 23:59 Intake Total 510 / 510 Output Total 100 / 100 Balance 510 / 410 -100 / 410 Weight 161 lb 162 lb 7.691 oz Intake: IV 510 / 510 Output: Estimated Blood Loss 100 / 100 PFSH All Active Problems DDD (degenerative disc disease), lumbar (Chronic) Depressive disorder (Chronic) Gastroesophageal reflux disease (Chronic) Hyperlipidemia (Chronic) Peripheral vascular disease of extremity with claudication (Chronic) Osteoarthritis of left hip (Chronic) Stenosis of left subclavian artery (Chronic) Cigarette smoker (Chronic) COPD (chronic obstructive pulmonary disease) (Chronic) Diabetic peripheral neuropathy (Chronic) Onychomycosis (Chronic) Type 2 diabetes mellitus with peripheral vascular disease (Chronic) Tubulovillous adenoma of colon (Chronic) Serrated adenoma of colon (Chronic) Osteoarthritis of left knee (Chronic) Hypertension (Chronic) NAFLD (nonalcoholic fatty liver disease) (Chronic) Medical History Acute pancreatitis CVA (cerebral vascular accident) x4 per pt. states apparently she had 2 others but doesn't remeber those dates. Pt. states no risidual deficits from the stroke States f/u with neuro Van straten 2017 2019 Left retinal detachment Surgical History History of bilateral tubal ligation S/P section S/P cholecystectomy S/P laparoscopic procedure Family History Mother Alcohol use disorder Father Alcohol use disorder Sister No problems noted. Sister No problems noted. Sister No problems noted. Sister Ovarian cancer Sister No problems noted. Sister No problems noted. Sister No problems noted. Brother Multiple sclerosis Brother No problems noted. Brother No problems noted. Brother No problems noted. Brother No problems noted. Son No problems noted. Daughter No problems noted. Maternal Grandfather No problems noted. Maternal Grandmother No problems noted. Paternal Grandfather No problems noted. Paternal Grandmother No problems noted. 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 Pets and animals: Yes Pets and animals: cat(s) Sexually active: No What is your relationship status?: refused to answer How often do you talk on the phone with friends or family?: twice per week How often do you get together with friends or relatives?: never How often do you attend druze or islam services?: decline to answer Do you belong to any clubs or organized social groups?: no Panel score (0-1 are the most socially isolated patients): 0 What type of physical activity do you participate in: walking Duration: < 15 minutes/day Frequency: 5-6 times per week Ofelia/Scientologist: No preference Seatbelt use: always Helmet use: No Drive intox or ride w/intox sales warehouse driver: No Do you feel safe at home: Yes Do you feel safe in your relationship?: Yes Time Spent with Patient Time Spent with Patient: <45 minutes Time was spent: ordering medications,tests, procedures, counseling the patient and care coordination
--- NOTE | 2023-04-21 12:10 | W.PM.OP ---
Date of service: 04/21/23 Time of Service: 11:50 Operative Note Operative Note DATE OF PROCEDURE: 04/21/23 PRE-OP DIAGNOSIS: Left Hip Osteoarthritis POST-OP DIAGNOSIS: same PROCEDURE: Left Anterior Total Hip Arthroplasty with Intraoperative Navigation SURGEON: Jorge Rivera ANESTHESIA TYPE: Spinal Refer to Anesthesia Record PATHOLOGY: none sent TOURNIQUET TIME: 0 COMPLICATIONS: None Patient was transported to: PACU Patient's condition: stable Implants: 1. Depuy Woden Acetabular Component, 48mm 2. Depuy Acetabular Liner, [id number] 3. Depuy Corail Standard 125 degree collared Femoral Stem, Size 11 4. Depuy Altrx Ceramic Femoral Head, Size 32+1mm Indications: I have seen Kera in clinic for symptoms of hip arthritis, confirmed with radiographic findings. She has exhausted nonoperative methods and was having significant limitations in daily function and desired better function and less pain. I discussed the technical details of a hip replacement. I explained the risks of the procedure to include, but not limited to, bleeding, infection, pain, stiffness, fracture, damage to nerves and vessels, damage to muscles and tendons, loosening, instability, leg length inequality, need for repeat procedure, blood clot and cardiopulmonary demise. Despite these risks, Kera elected to proceed. Findings: There was significant signs of arthritis throughout the hip. Large osteophytes were present about the acetabulum with femoral head deformity. Procedure Description: Kera was greeted in the preoperative holding area where the correct side was identified and marked. The consent was reviewed with the patient and signed. The history and physical was updated. All questions were answered. Kera was taken back to the operating room. A spinal anesthestic was then administered. The feet were wrapped with cast padding and Coban and then placed into the boot liners and then into the boots. Care was taken to protect the skin and make sure the heels were fully down and the boots were stable. The patient was then positioned onto the HANA table. Both legs were held in a neutral position. SCDs were applied. The patient was then slid down onto a peroneal post. Prophylactic antibiotics in the form of Cefazolin were administered. 1g of Tranxemic Acid was given intravenously within 30 minutes of incision. The left leg was then prepped with Chloraprep and draped in a standard fashion. A second prep with Chloraprep was performed prior to placement of a shower-curtain type drape with Iodine impregnated skin protection. A timeout to confirm correct identity, side and site, procedure, allergies, anesthesia, and medical concerns was performed. An obliquely oriented incision was made starting lateral to the ASIS and running distal over the Tensor Fascia Ivonne (TFL) muscle belly toward the fibular head, approximately 10cm. The skin and soft tissue was dissected sharply, through Antonia?s fascia, and to the fascia of the TFL. With the fascia and superior border of the IT band identified, the fascia was incised with a new knife just above any perforators from the IT band. The TFL muscle belly was bluntly dissected away from the fascia and moved laterally. The fat between TFL and rectus was identified to ensure the dissection was not within the TFL. Blunt dissection created space between abductors and the capsule and retractor was placed over the lateral femoral neck. The fibers of the rectus femoris tendon were identified and these were freed from the anterior capsule. A second cobra retractor was placed around the medial femoral neck. The TFL was further retracted laterally to show the deep fascia. Careful dissection through this layer identified three main crossing vessels of the lateral femoral circumflex. These were cauterized in multiple locations and then cut without any noticeable bleeding. The TFL was further released bluntly from the deep fascia to expose anterior hip capsule and fat The Narendra orthopaedic retractor was then placed beneath the TFL and against sartorius and medial soft tissues to protect and retract the soft tissues. A T-capsulotomy was then performed starting at the superior lateral acetabulum and moving distally to the intertrochanteric ridge. These capsular flaps were tagged with a No. 1 Ethibond and elevated from within. The capsular flaps were released to the shoulder of the lateral neck and to the lesser trochanter to give excellent visualization of the proximal femur. A neck osteotomy was performed using an oscillating saw based on preoperative templates. This cut started in the shoulder and of the lateral neck and exited medially. The saw was at all times directed medially to avoid injury to the greater trochanter. Gross traction was applied to the leg and the osteotomy opened. The femoral head was removed with a corkscrew, making sure to protect the TFL on its exit. Traction was released after head removal. This was measured on the back table to determine the starting reamer size. Portions of the rectus obscuring visualization were minimally elevated off the superior acetabulum. An anterior retractor was placed over the anterior wall between capsule and labrum and attached to the Gripper retraction system. The femur was rotated to 90 degrees and medial capsule was fully released until the lesser trochanter was palpable and visible; the femur was returned to 30 degrees. A posterior retractor was placed similarly between capsule and labrum. This provided excellent visualization. The contents of the cotyloid fossa were removed with electrocautery and the labrum was removed with a knife. There was a notable floor osteophyte as well as lateral an dposterior acetabular osteophytes. There was significant chondromalacia of the superior acetabulum. Acetabular reaming began with a 44mm reamer. This first reaming was directed anterior to posterior and medial to get down to the true floor. This was inspected and reamed until the true floor was reached. The anterior retractor was then released and entry and exit was provided by traction on the capsular flaps. I then reamed sequentially up to a 48mm reamer where good fit was obtained. The larger reamers were oriented based on anatomical reference of the anterior and lateral fowler to ensure proper abduction and anteversion. Positioning and size was confirmed with the fluoroscopy. A 48mm Depuy Woden acetabular component was selected. The acetabulum was reamed around the periphery with the selected acetabular size to prevent a rim fit. The deep tissues were irrigated. The acetabular component was then impacted in a position of about 40-45 degrees of abduction and 15-20 degrees of anteversion, using the patient?s anatomy as the ultimate landmark. Fluoroscopy was used to confirm this. There was excellent habitat conservation planner of the acetabular component and the inserting handle was removed. The acetabular liner, Depuy 37x58pm polyethylene liner, was inserted and lined up with the tines of the acetabular component. There was no soft tissue interposition. The liner was then impacted into position and confirmed to be well-seated. A portion of the sana-articular cocktail was then injected around the acetabulum into the capsule and periosteum. This cocktail consisted of 123mg of Ropivacaine, 0.25mg of Epinephrine, 0.04mg of Clonidine, and 15mg of Ketorolac, diluted to 50cc. The leg was rotated to 120 degrees. Any remaining medial capsule was released until the lesser trochanter was easily palpable. A retractor was placed medially. The lateral capsule was further released into the shoulder to allow access to the greater trochanter. A Landis retractor was placed over the greater trochanter which allowed the trochanter to flip in front of the capsule for excellent exposure. The leg was brought down into maximal extension and 20 degrees of adduction while ensuring there was no impingement on the acetabulum. Any remnant capsule within the trochanter was released. Piriformis and obturator externis were identified and protected. There was excellent access to the proximal femur. The lateral neck remnant was removed with a rongeur. A blunt canal probe was used to identify the canal and trajectory for later broaching. A box osteotome initiated the broach course. A small curved rasp and a curved curette were used to work laterally. Broaching then began with a size 8 Corail broach. This was inserted manually around the trochanter and into the canal before mallet blows. The broach was seated to a few millimeters below the cut level based on the neck cut and the preoperative template. Sequential broaching was continued with the Next Step Livingse pneumatic broaching device until a tight fit was obtained with good rotational control of the femur. A trial standard 125 degree neck was inserted along with a +5 trial head. The leg was brought out of extension and adduction and then reduced with traction and internal rotation. The leg was stable anteriorly in a position of 30 degrees of extension and 90 degrees of external rotation. Fluoroscopy was used to ensure there was no fracture and the stem was seated well. Leg lengths were checked with an AP pelvis and pelvic reference points. Cardiio navigation system was used to confirm appropriate positioning and leg length and offset. The stem was advanced 3-4mm to correct leg length and go to a +1mm head. Once content with the desired offset and leg lengths, the leg was brought back into extension, external rotation and adduction. The periosteum and surrounding tissue was injected with remaining portion of the sana-articular cocktail. The proximal femur was irrigated as well as the deep tissues. The Depuy Corail standard 125 degree collared stem, size 11, was then manually inserted into the proximal femur making sure to control rotation. It was then malleted into position with light blows, giving breaks to allow bone expansion and decrease risk of fracture. The selected Depuy Altrx Ceramic Head, size 32+1mm, was then placed onto the clean and dry trunnion and secured with impaction onto the tapered fit. The leg was brought back out of extension and adduction and reduced with traction and internal rotation. Stability was confirmed with no shuck at 90 degrees of external rotation and 30 degrees of extension. No impingement through range of motion arc. Final x-ray images were obtained with fluoroscopy to confirm adequate positioning and no intraoperative fracture. The deep tissues were thoroughly irrigated with Surgiphor, betadine solution. This was allowed to sit in the wound for 3 minutes before being thoroughly irrigated out with normal saline. The capsule was then reapproximated with the previously placed Ethibond sutures. The TFL fascia was finally closed with a No. 2 Stratafix, barbed suture. Deep tissues were then reapproximated with 0 Vicryl and a running 2-0 Vicryl. The skin was closed with a running 4-0 Monocryl in a subcuticular fashion. This was reinforced with skin glue. A Mepilex silver dressing was applied. At the end of the case, all counts were correct. Kera was transferred to the hospital bed without difficulty and suffering no apparent complication. Kera has a good prognosis. Physical therapy will start today and without restrictions, weight-bearing as tolerated. Aspirin 81mg BID in addition to her baseline Plavix will be used for DVT prophylaxis.
--- NOTE | 2023-04-21 12:27 | W.ANESPOSTOP ---
Postoperative Evaluation Date, Time and Location Date Performed: 04/21/23 Time Performed: 12:27 Patient Location: PACU Vital Signs Most Recent Imported Vital Signs: Most Recent Vital Signs Temp Pulse Resp BP Pulse Ox 36.2 C L 85 20 113/58 L 95 04/21/23 12:00 04/21/23 12:17 04/21/23 12:17 04/21/23 12:17 04/21/23 12:17 Pain Score Most Recent Pain Score: Most Recent Pain Score Pain Level 0 04/21/23 12:17 Assessment Mental Status: Awake (Alert & Oriented to Patient Baseline) Airway and Respiratory Function: Patent airway with normal (patient baseline) respiratory exam Cardiovascular Function: Hemodynamically Stable Hydration Status: Adequately Hydrated Nausea & Vomiting: No Nausea or Vomiting Pain: Pt. Denies Any Pain Peripheral Nerve Block: Patient did not receive a nerve block
[2023-04-21] MEDS: oxyCODONE 5 MG TAB PO (13:08)
--- NOTE | 2023-04-21 14:42 | IN_ITS ---
Date of service: 04/21/23 Time of Service: 14:12 PT Notes Visit Reasons: Left hip DJD Physical Therapy Day Surgery Initial Evaluation Date: 04/21/2020 Referring Doctor: DANTE Ellis PT Orders: PT CONSULT: S/P Ortho surgery Precautions: WBAT on Patient Profile/Admitting Diagnosis: Kera is a 67-year-old female with degenerative joint disease of the left hip and is status post left total hip arthroplasty on postoperative day 0. PMHX: All Active Problems Type 2 diabetes mellitus with peripheral vascular disease (Chronic) Peripheral vascular disease of extremity with claudication (Chronic) Stenosis of left subclavian artery (Chronic) Hyperlipidemia (Chronic) COPD (chronic obstructive pulmonary disease) (Chronic) Hypertension (Chronic) NAFLD (nonalcoholic fatty liver disease) (Chronic) Depressive disorder (Chronic) DDD (degenerative disc disease), lumbar (Chronic) Osteoarthritis of left hip (Chronic) Diabetic peripheral neuropathy (Chronic) Osteoarthritis of left knee (Chronic) Gastroesophageal reflux disease (Chronic) Onychomycosis (Chronic) Serrated adenoma of colon (Chronic) Tubulovillous adenoma of colon (Chronic) Cigarette smoker (Chronic) Medical History? Acute pancreatitis CVA (cerebral vascular accident) Left retinal detachment Surgical History? History of bilateral tubal ligation S/P section S/P cholecystectomy S/P laparoscopic procedure Social History/Home Situation: Lives alone in a private home with no steps to enter. Independent with all aspects of ADLs prior to surgery. Equipment Owned/DME: None Subjective: Al dressed up and has been waiting on PT for session. Reports 1/10 pain in the left hip at rest and with movement. Denies headache, chest pain, and lightheadedness throughout session. Objective: General Observation: All dressed up ready to go home sitting on reclining chair. Mepilex Ag over surgical incision. TEDS to be legs. Mental Status: Alert and oriented x4 Pain: 1/10 on the left hip at rest and with movement ROM: Right Lower Extremity: Hip flexion WFL. Hip abduction WFL. Knee flexion WFL. Ankle dorsiflexion WFL. Ankle plantarflexion WFL. Left Lower Extremity: Hip flexion WFL. Hip abduction WFL. Knee flexion WFL. Ankle dorsiflexion WFL. Ankle plantarflexion WFL. Strength: Right Lower Extremity: Hip flexors 5/5. Hip abductors 5/5. Knee flexors 5/5. Knee extensors 5/5. Ankle dorsiflexors 5/5. Ankle plantarflexors 5/5. Left Lower Extremity:Hip flexors 4/5. Hip abductors 4/5. Knee flexors 5/5. Knee extensors 4/5. Ankle dorsiflexors 5/5. Ankle plantarflexors 5/5. Sensation: Intact as to pain and light pressure in bilateral lower extremities Bed Mobility/Transfers: Supine to sit independent Sit to stand independent Stand to sit independent with FWW Bed to chair independent wit FWW Gait: Tolerated level surface ambulation of 150 feet using front wheeled walker with step through gait pattern requiring only supervision. Reported 1/10 pain in the left hip that did not limit distance and activity tolerance. No LOB. No SOB. Balance: Static Sitting: Normal Dynamic Sitting: Normal Static Standing: Good Dynamic Standing: Fair Special Tests: Mobility Limitations Standardized Measure [facility] AM-PAC 6 clicks Basic Mobility Inpatient Short Form: Raw Score: 24 CMS Score: 0% deficit Informed Consent/Education: Patient instructed in purpose of PT consult. Packet containing MONIK exercise protocol has been given to patient. Education and training on initial set of exercises that can be done at home have been completed with patient. THERA ACT: Trained patient with correct performance of exercises below to maximize motor control, joint flexibility, soft tissue extensibility of the [] hip musculature to facilitate return to independent functional mobility performance. Access Code: [email or web address] URL: [email or web address] Date: 04/21/2023 Prepared by: Daisy Ernst Exercises - Gluteal Sets - 1 x daily - 7 x weekly - 1 sets - 10 reps - 5 hold - Supine Heel Slide - 1 x daily - 7 x weekly - 1 sets - 10 reps - 5 hold - Supine Ankle Pumps - 1 x daily - 7 x weekly - 1 sets - 10 reps - 5 hold - Seated March - 1 x daily - 7 x weekly - 1 sets - 10 reps - 5 hold - Seated Long Arc Quad - 1 x daily - 7 x weekly - 1 sets - 10 reps - 5 hold Assessment: Patient requires the use of a front wheeled walker to maximize independence and reduce fall risk. Patient presents with clinical signs and symptoms consistent with current/admitting diagnoses that have resulted to mobility limitations, gait instability, generalized weakness, and impairment of motor control as demonstrated by the following impairment level findings: 1. Decreased strength to left hip major muscle groups 2. Impaired standing balance Impairments are contributing to the following functional limitations: 1. Inability to safely ambulate without assistive device 2. Increase completion time for mobility ADL performance Patient is assessed as a 64990 moderate complexity complexity based on the following: History: 67-year-old female with impairment level findings, functional limitations, and past medical history as indicated above Examination: Demonstrable impairment in strength, balance, and mobility level with underlying impairments and functional limitations as documented above Presentation: Evolving Decision Makin moderate complexity Goals: N/A. PT evaluation and 1-2 treatment sessions only for functional mobility training using recommended AD and for HEP instruction. Plan of Care/Treatment Plan: N/A. PT evaluation and 1-2 treatment session only for functional mobility training using recommended AD and for HEP instruction. DISCHARGE RECOMMENDATIONS: Home when medically cleared by orthopedic surgeon. Recommend outpatient PT services in order to optimize functional mobility outcomes and facilitate return to independent community ambulation without an assistive device. TREATMENT CODE/TIME: 88260 x 23 minutes beginning at 14:12 PM. Thank you for the opportunity to participate in the care of this patient. Daisy Ernst PT, DPT, CLT [facility] [place], [place]
== END 2023-04-21 14:30 | disposition home or self-care (01) ==
PROVIDERS: PCP Nurse Practitioner Family; Visit Provider Student in an Organized Health Care Education/Training Program
PROC: (CPT 27130; principal; 2023-04-21 11:30)
DX: M16.12 Unilateral primary osteoarthritis, left hip (principal); J44.9 Chronic obstructive pulmonary disease, unspecified; E78.5 Hyperlipidemia, unspecified
CPT/HCPCS: 20985; 27130; C1776; 97162; 73501; J0690; J1100; J2250; J2405

== ENCOUNTER 2023-05-04 09:07 | Outpatient (CLI) | payer MEDICARE, MEDICAID, SELFPAY ==
--- NOTE | 2023-05-04 08:00 | DI.RAD_ITS ---
Exam(s) XR HIP LT COMPLETE AP PELVIS EXAM: XR HIP LT COMPLETE AP PELVIS INDICATION: s/p L MONIK. COMPARISON: CR XR HIP LT COMPLETE AP PELVIS from 10/06/2022 XA XR HIP LT IN OR from 04/21/2023 TECHNIQUE: 2D digital imaging was performed. Two views. FINDINGS: There has been no change in the alignment of the left hip prosthesis. There are no surrounding abnor mal bony lucencies. The right hip is unremarkable. Vascular calcifications are noted. DATA REPOSITORY: RADIATION DOSE DELIVERED:
== END 2023-05-04 09:08 | disposition home or self-care (01) ==
LOC: DIORS 09:08
PROVIDERS: PCP Nurse Practitioner Family; Visit Provider Student in an Organized Health Care Education/Training Program
DX: Z47.1 Aftercare following joint replacement surgery; Z96.642 Presence of left artificial hip joint
CPT/HCPCS: 73502

== ENCOUNTER → 2023-06-02 15:16 | Outpatient (CLI) | payer MEDICARE, MEDICAID, SELFPAY ==
--- NOTE | 2023-06-02 10:30 | DI.US_ITS ---
Exam(s) US LOWER EXTREMITY VENOUS LT EXAM: US LOWER EXTREMITY VENOUS LT CLINICAL HISTORY: left leg/foot red. recent lt hip surg. r/o dvt M79.89 SOFT TISSUE DISORDER TECHNIQUE: Grayscale, color, and doppler imaging of the deep venous system of the left lower extremi ty was performed. COMPARISON: US US LOWER EXTREMITY VENOUS LT from 06/14/2021 FINDINGS: There is no evidence of intraluminal thrombus and there is normal compression and augmentation demons trated within the common femoral vein, femoral vein, and popliteal vein. In the ipsilateral calf the interrogated veins also exhibit normal compression/ augmentation properti es. The ipsilateral saphenofemoral junction is patent. IMPRESSION: 1. No evidence of DVT in the left lower extremity. DATA REPOSITORY:
--- NOTE | 2023-06-02 10:30 | DI.RAD_ITS ---
Exam(s) XR FOOT LT COMPLETE EXAM: XR FOOT LT COMPLETE CLINICAL HISTORY: left foot ache, redness. r/o osteo 4th toe distall M79.672 PAIN LEFT FOOT. TECHNIQUE: 2D digital imaging was performed. COMPARISON: No exams were available for comparison FINDINGS: No evidence fracture nor diastasis of the Lisfranc joint. Mild degenerative changes at the great toe metatarsophalangeal joint are noted. No radiopaque foreign body. No radiographic evidence of osteo myelitis, as per request. Moderate-large size inferior calcaneal spur noted and there is prominent calcification within the ru ntar fascia evident. IMPRESSION: No evidence of osteomyelitis, as per request. However, if there is a strong clinical consideration f or osteomyelitis stent views of the particular toe if concern would be recommend as this will sometim es reveal findings not seen on complete foot films. Prominent calcifications are noted in the plantar fascia, this in addition to a prominent inferior ca lcaneal spur. DATA REPOSITORY: RADIATION DOSE DELIVERED:
== END ==
PROVIDERS: PCP Nurse Practitioner Family; Visit Provider Physician Assistant
DX: M79.89 Other specified soft tissue disorders (principal); M79.672 Pain in left foot
CPT/HCPCS: 36415; 80053; 85652; 73630; 85025; 86140; 93971

== ENCOUNTER 2023-06-02 15:27 | Outpatient (CLI) | payer MEDICARE, MEDICAID, SELFPAY ==
[2023-06-02 13:51] LABS: HCT 41.9 % (36.0-46.0); HGB 13.8 g/dL (11.2-15.7); MCH 30.1 pg (27.0-33.0); MCHC 32.9 % (32.0-36.0); MCV 92 fL (80-95); MPV 10.4 fL (8.0-11.0); Platelet Count 261 10^3/uL (130-400); RBC 4.58 10^6/uL (3.93-5.22); RDW 13.9 % (11.7-14.6); RDW-SD 46.5 fL; WBC 10.99 10^3/uL (4.4-10.8)
[2023-06-02 14:14] LABS: Absolute Basophil Count 0.11 10^3/uL (0.0-0.2); Absolute Eosinophil Count 0.11 10^3/uL (0.0-0.7); Absolute Lymphocyte Count 4.29 10^3/uL (1.2-3.4); Absolute Monocyte Count 0.55 10^3/uL (0.1-0.8); Absolute Neutrophil Count 5.93 10^3/uL (1.2-6.7); Atypical Lymphocytes % 3; Diff Comment Manual Differential; RBC Morphology Normal
[2023-06-02 14:40] LABS: ALT 39 U/L (14-59); AST 17 U/L (15-37); Albumin 3.7 g/dL (3.4-5.0); Alkaline Phosphatase 93 U/L (46-116); BUN 28 mg/dL (7-18); Bilirubin, Total 0.3 mg/dL (0.2-1.0); Calcium 9.7 mg/dL (8.5-10.1); Chloride 102 mmol/L (98-107); Estimated GFR 61.75 (mL/min/1.73m2); Glucose 218 mg/dL (74-106); Potassium 3.9 mmol/L (3.5-5.1); Sodium 139 mmol/L (136-145); Total Protein 8.1 g/dL (6.4-8.2)
[2023-06-03 09:31] LABS: Lab Add On Test DONE
[2023-06-03 09:56] LABS: C-Reactive Protein 0.08 mg/dL (0.0-0.3)
[2023-06-03 10:13] LABS: ESR 43 mm/hr (0-30)
== END 2023-06-02 15:28 | disposition home or self-care (01) ==
LOC: LBO 15:27
PROVIDERS: PCP Nurse Practitioner Family; Visit Provider Physician Assistant
DX: M79.672 Pain in left foot (principal); I73.9 Peripheral vascular disease, unspecified
CPT/HCPCS: 36415; 80053; 85652; 85025; 86140

== ENCOUNTER → 2023-06-04 09:10 | Outpatient (BNVA) | payer MEDICARE, MEDICAID, SELFPAY | PROVIDERS: PCP Nurse Practitioner Family; Visit Provider Student in an Organized Health Care Education/Training Program | DX: Z47.1 Aftercare following joint replacement surgery (principal); Z96.642 Presence of left artificial hip joint ==

== ENCOUNTER 2023-06-27 06:52 | Emergency (ER) | payer MEDICARE, MEDICAID, SELFPAY ==
[2023-06-27 06:56] VITALS: BP 180/72; PULSE 100; RESP 18; TEMP 36.4; O2SAT 98
[2023-06-27 07:21] VITALS: RESP 16
--- NOTE | 2023-06-27 07:30 | W.ED.GENAD ---
Discharge Plan Disposition Patient Disposition: Home Condition: Stable Discharge Details Clinical Impression: Femoral artery occlusion, Claudication Primary Care Provider: Maribeth Fish ED Provider: Cesar Haider Meds and New Rx's Prescriptions: No Action insulin glargine [Lantus Solostar U-100 Insulin] 100 unit/mL (3 mL) insulin pen 12 unit subcut HS ondansetron HCl 8 mg tablet 8 mg PO TID PRN (Reason: nausea and vomiting) Qty: 60 0RF glipizide 10 mg tablet extended release 24hr 10 mg PO BID Qty: 180 3RF atorvastatin 20 mg tablet 20 mg PO QHS Qty: 90 3RF metformin 500 mg tablet extended release 24 hr 1,000 mg PO BID Qty: 360 3RF varenicline 1 mg tablet 1 mg PO BID Qty: 168 0RF losartan 25 mg tablet 25 mg PO DAILY Qty: 90 3RF cephalexin 500 mg capsule 500 mg PO QID Qty: 40 0RF (DME) blood-glucose meter Misc See Rx Instructions .ROUTE .MEDSUPPLY Qty: 1 0RF Rx Instructions: As directed clopidogrel [Plavix] 75 mg tablet 75 mg PO DAILY Qty: 90 3RF (DME) Dexcom G7 Sensor Device See Rx Instructions .Route Qty: 1 3RF Rx Instructions: Continuous glucose monitor (DME) pen needle, diabetic [BD Ultra-Fine Short Pen Needle] 31 gauge x 5/16 needle See Rx Instructions .MEDSUPPLY Qty: 100 3RF Rx Instructions: Use with pen daily (DME) OneTouch Verio test strips Strip See Rx Instructions .ROUTE .MEDSUPPLY Qty: 200 4RF Rx Instructions: Check blood sugar twice a day (DME) lancets [OneTouch Delica Plus Lancet] 33 gauge misc See Rx Instructions .Route Qty: 200 3RF Rx Instructions: Check blood sugar twice a day acetaminophen 500 mg tablet 1,000 mg PO Q8H PRN Qty: 90 0RF Rx Instructions: Take two tablets up to every 8 hours as needed for pain pantoprazole 40 mg tablet,delayed release (DR/EC) 40 mg PO DAILY Qty: 14 0RF docusate sodium [Colace] 100 mg capsule 100 mg PO BID Qty: 30 0RF Discharge Instructions Instructions: Peripheral Vascular Disease (ED) Additional Instructions: Please return to the emergency department for any worsening symptoms. Follow-up closely with vascular surgery team at [facility]. Medical Decision Making <Renetta Vernon MD - Last Filed: 06/27/23 20:06> Case signed out to Dr. Franks at 0830. After labs Medical Records Medical records reviewed: Yes I reviewed the patient's medical records. Lab Data Lab results reviewed: Yes I reviewed the patient's lab results. <Cesar Haider MD - Last Filed: 06/27/23 11:47> Case signed out to Dr. Franks at 0830. After labs 11: 03 clinical history consistent with worsening claudication, CT angio of left lower extremity showing left superficial femoral artery and left distal superficial femoral artery occlusions with reconstitution of the popliteal artery also right external iliac artery occlusion with reconstitution; have transferred images to [facility] and consulted vascular surgery for further recommendations. Patient currently resting comfortably hemodynamically stable. 11: 44 patient does not wish to stay, adamant that she needs to leave to picker tender family members. I counseled her at length regarding the seriousness of her diagnosis given evidence of acute on chronic occlusion of her arterial system of her left lower extremity which can be limb and life-threatening. Patient again does not wish to stay and is walking out of the department. I have contacted the [facility] transfer center again and have explained the patient is left AGAINST MEDICAL ADVICE, I have asked that the vascular team reach out within the next couple of days to coordinate close follow-up. Patient will also reach out to vascular team at [facility]. HPI <Renetta Vernon MD - Last Filed: 06/27/23 20:06> General Date/Time Provider Initiated Documentation: 06/27/23 07:28. HPI Narrative: This 67-year-old female patient with a history of peripheral vascular disease, claudication, diabetes, neuropathy, and smoking presents with a chief complaint of left foot pain that has been ongoing for the past month. Patient states that about a month ago her left foot became discolored distally; she has scattered petechiae in her forefoot and lateral foot. About 3 weeks ago this became both painful and numb. She describes the pain in her toes as being sharp and shooting. Her forefoot throbs. She has most pronounced pain in her fourth toe. She has seen vascular surgery at [facility] and says that she has had some studies there involving blood flow to her bilateral lower extremities. Sounds like she has had perhaps GREGORIO and Doppler ultrasound. They also wanted to do a CAT scan on her but she is not sure of what. She reports the ankle-brachial index test has been abnormal. Records were obtained from [facility]; on the of this month the patient's GREGORIO of her legs revealed right sided moderate to moderately severe lower extremity arterial occlusive disease which was unchanged from her previous exam. On the left-hand side the patient had severe lower extremity arterial occlusive disease with significant progression when compared to the previous exam. Office visit note from 06/10/2023 was also reviewed.. The patient sees DANTE Guaman, from vascular surgery. She reported to Rhiannon that she had an increase in claudication in her calves as well as the redness in her left foot. Patient is on both Plavix and statins. She felt that the patient's claudication symptoms were lifestyle limiting and had reviewed the studies with Dr. Brown. The plan was for the patient to have a CTA with runoff of her lower extremities and vein mapping of her left leg before meeting with Dr. Ford for 06/16/2023 to discuss potential interventions. The patient is still smoking and tells me that she smokes about 1-1/2 packs/week. Of note, the patient has had the vein mapping done, specifically of the left side. Interpretation showed that she had a patent great saphenous vein on the left with no evidence of thrombus. Related Data Home Medications Medication Instructions Recorded Confirmed blood-glucose meter #1 ea 05/09/20 06/27/23 clopidogrel 75 mg tablet (Plavix) 75 mg PO DAILY #90 tabs 04/16/22 06/27/23 atorvastatin 20 mg tablet 20 mg PO QHS #90 tabs 07/16/22 06/27/23 metformin 500 mg tablet,extended 1,000 mg PO BID #360 tabs 11/12/22 06/27/23 release 24 hr blood-glucose sensor (Dexcom G7 #1 ea 12/10/22 06/27/23 Sensor device) pen needle, diabetic 31 gauge x #100 ea 01/26/23 06/27/23 5/16 (BD Ultra-Fine Short Pen Needle) ondansetron HCl 8 mg tablet 8 mg PO TID PRN nausea and 03/13/23 06/27/23 vomiting #60 tabs losartan 25 mg tablet 25 mg PO DAILY #90 tabs 04/01/23 06/27/23 varenicline 1 mg tablet 1 mg PO BID #168 tabs 04/01/23 06/27/23 blood sugar diagnostic (OneTouch #200 ea 04/02/23 06/27/23 Verio test strips) insulin glargine 100 unit/mL (3 12 unit subcut HS 04/13/23 06/27/23 mL) subcutaneous pen (Lantus Solostar U-100 Insulin) acetaminophen 500 mg tablet 1,000 mg PO Q8H PRN pain #90 tabs 04/21/23 06/27/23 docusate sodium 100 mg capsule 100 mg PO BID #30 caps 04/21/23 06/27/23 (Colace) pantoprazole 40 mg tablet,delayed 40 mg PO DAILY #14 tabs 04/21/23 06/27/23 release lancets 33 gauge (OneTouch [facility] #200 ea 04/29/23 06/27/23 Plus Lancet) glipizide 10 mg tablet, extended 10 mg PO BID #180 tab-caps 05/20/23 06/27/23 release 24 hr cephalexin 500 mg capsule 500 mg PO QID #40 caps 06/02/23 06/27/23 Previous Rx's Medication Instructions Recorded blood-glucose meter #1 ea 05/09/20 clopidogrel 75 mg tablet (Plavix) 75 mg PO DAILY #90 tabs 04/16/22 atorvastatin 20 mg tablet 20 mg PO QHS #90 tabs 07/16/22 metformin 500 mg tablet,extended 1,000 mg PO BID #360 tabs 11/12/22 release 24 hr blood-glucose sensor (Dexcom G7 #1 ea 12/10/22 Sensor device) pen needle, diabetic 31 gauge x #100 ea 01/26/2302/10 (BD Ultra-Fine Short Pen Needle) ondansetron HCl 8 mg tablet 8 mg PO TID PRN nausea and 03/13/23 vomiting #60 tabs losartan 25 mg tablet 25 mg PO DAILY #90 tabs 04/01/23 varenicline 1 mg tablet 1 mg PO BID #168 tabs 04/01/23 blood sugar diagnostic (OneTouch #200 ea 04/02/23 Verio test strips) acetaminophen 500 mg tablet 1,000 mg PO Q8H PRN pain #90 tabs 04/21/23 docusate sodium 100 mg capsule 100 mg PO BID #30 caps 04/21/23 (Colace) pantoprazole 40 mg tablet,delayed 40 mg PO DAILY #14 tabs 04/21/23 release lancets 33 gauge (OneTouch Delica #200 ea 04/29/23 Plus Lancet) glipizide 10 mg tablet, extended 10 mg PO BID #180 tab-caps 05/20/23 release 24 hr cephalexin 500 mg capsule 500 mg PO QID #40 caps 06/02/23 Allergies Allergy/AdvReac Type Severity Reaction Status Date / Time empagliflozin AdvReac Intermediate Vaginal Verified 06/27/23 07:00 [From Jardiance] yeast infections omeprazole [From Prilosec] AdvReac Unknown diarrhea Verified 06/27/23 07:00 General Stated Complaint: Vascular DAR: 3 Review of Systems <Renetta Vernon MD - Last Filed: 06/27/23 20:06> Constitutional Constitutional: Denies chills, Denies fever(s), Denies headache(s) and Denies weakness Eyes Eyes: Denies diplopia and Reports other (no redness) ENT Ears, Nose, Mouth, and Throat: Denies otalgia, Denies headache(s), Denies nasal congestion, Denies nasal discharge, Denies neck pain and Denies sore throat Cardiovascular Cardiovascular: Denies chest pain, Denies palpitations and Denies dyspnea Respiratory Respiratory: Denies cough and Denies dyspnea Gastrointestinal Gastrointestinal: Denies abdominal pain, Denies diarrhea, Denies nausea and Denies vomiting Genitourinary Genitourinary: Denies dysuria Musculoskeletal Musculoskeletal: Denies myalgias, Denies muscle weakness, Denies neck pain, Reports numbness (decreased sensation L forefoot) and Reports other (No edema, scattered petechiae left forefoot and lateral foot, delayed CR) Comments: Left fourth toe exquisitely tender to palpation, unable to get DP pulses bilaterally with Doppler, PT pulses easily obtainable with Doppler, foot not hot to touch Integumentary/Breasts Skin/Breast: Reports change in pigmentation (L foot) and Denies rash Neurologic Neurologic: Denies headache(s), Reports numbness (decreased sensation L forefoot) and Denies weakness Endocrine Endocrine: Denies palpitations PFSH <Renetta Vernon MD - Last Filed: 06/27/23 20:06> All Active Problems (Updated 06/27/23 @ 11:46 by Cesar Haider MD) Femoral artery occlusion (Acute) Claudication (Acute) Type 2 diabetes mellitus with peripheral vascular disease (Chronic) COPD (chronic obstructive pulmonary disease) (Chronic) Peripheral vascular disease of extremity with claudication (Chronic) Stenosis of left subclavian artery (Chronic) Hypertension (Chronic) NAFLD (nonalcoholic fatty liver disease) (Chronic) Hyperlipidemia (Chronic) DDD (degenerative disc disease), lumbar (Chronic) Depressive disorder (Chronic) Gastroesophageal reflux disease (Chronic) Cigarette smoker (Chronic) Diabetic peripheral neuropathy (Chronic) Onychomycosis (Chronic) Tubulovillous adenoma of colon (Chronic) Serrated adenoma of colon (Chronic) Osteoarthritis of left knee (Chronic) Medical History Acute pancreatitis CVA (cerebral vascular accident) x4 per pt. states apparently she had 2 others but doesn't remeber those dates. Pt. 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 Sister No problems noted. Sister No problems noted. Sister Ovarian cancer Sister No problems noted. Sister No problems noted. Sister No problems noted. Brother Multiple sclerosis Brother No problems noted. Brother No problems noted. Brother No problems noted. Brother No problems noted. Son No problems noted. Daughter No problems noted. Maternal Grandfather No problems noted. Maternal Grandmother No problems noted. Paternal Grandfather No problems noted. Paternal Grandmother No problems noted. 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 Pets and animals: Yes Pets and animals: cat(s) Sexually active: No What is your relationship status?: refused to answer How often do you talk on the phone with friends or family?: twice per week How often do you get together with friends or relatives?: never How often do you attend restoration or confucianism services?: decline to answer Do you belong to any clubs or organized social groups?: no Panel score (0-1 are the most socially isolated patients): 0 What type of physical activity do you participate in: walking Duration: < 15 minutes/day Frequency: 5-6 times per week Ofelia/Adventist: No preference Seatbelt use: always Helmet use: No Drive intox or ride w/intox cmv driver: No Do you feel safe at home: Yes Do you feel safe in your relationship?: Yes Exam <Renetta Vernon MD - Last Filed: 06/27/23 20:06> Const General: no acute distress, well developed, well groomed and not in acute distress Nutritional Appearance: well nourished Orientation: alert and oriented x3 HENMT Head: normocephalic and atraumatic Ears: external ears normal Mouth: oropharynx normal and moist mucous membranes Throat: posterior oropharynx normal Eyes Conjunctivae: conjunctivae normal Neck Neck: full ROM and supple Chest Chest: normal inspection of the chest Resp Effort & Inspection: normal respiratory effort Auscultation: clear to auscultation bilaterally Cardio Rate: regular rate Rhythm: regular rhythm Heart Sounds: no murmurs and no rubs GI Inspection: normal to inspection Palpation: soft, nontender and other (non distended) Auscultation: normal bowel sounds Skin General skin exam: no rashes or lesions noted and other (pink, warm, dry) Neuro General: patient alert, patient awake and patient oriented x3 Speech: speech normal Motor: other (WEINBERG) Sensory Exam: no sensory deficits noted Extrem General: normal to inspection (Except left foot), full ROM and pedal edema present Left lower extremity: foot (L lateral and forefoot w/petechiae, warm) Details: normal capillary refill (decreased) and tenderness (4rth toe, dopplerable PT, no DP) Psych Mental Status: mental status grossly normal Speech and Movement: speech and movement normal Affect: normal affect Course <Renetta Vernon MD - Last Filed: 06/27/23 20:06> Vital Signs Vital signs: Vital Signs Temperature 36.4 C L 06/27/23 06:56 Pulse 100 H 06/27/23 06:56 Respiratory Rate 18 06/27/23 06:56 Blood Pressure 180/72 H 06/27/23 06:56 Pulse Oximetry 98 06/27/23 06:56 Temperature 36.4 C L 06/27/23 06:56 Temperature Source Temporal Artery Scan 06/27/23 06:56 Pulse 100 H 06/27/23 06:56 Respiratory Rate 16 06/27/23 07:21 Respiratory Effort Normal 06/27/23 07:21 Respiratory Depth Normal 06/27/23 07:21 Respiratory Pattern Normal 06/27/23 07:21 Blood Pressure 180/72 H 06/27/23 06:56 Blood Pressure Position Sitting 06/27/23 06:56 Pulse Oximetry 98 06/27/23 06:56 Oxygen Delivery Method Room Air 06/27/23 06:56 Oxygen Flow Rate 0 06/27/23 06:56 Sign Out <Renetta Vernon MD - Last Filed: 06/27/23 20:06> Sign Out Data: Sign Out Comment: Patient with PVD and PAD who had a hip replacement 1 month ago. She feels much better and has been walking more and getting claudication. Recent ABIs, Doppler ultrasound, and vein mapping she has severe peripheral artery disease in her left lower extremity. Presents with discoloration of left forefoot x1 month with increasing pain and numbness that been worse the past 48 hours. She says the pain is severe. She is being seen by vascular at [facility] and will likely need transfer there. She was scheduled for CT angiogram of her aorta with lower extremity runoff. This has not been done yet. Last updated by Renetta Vernon MD at 06/27/23 08:56
[2023-06-27 07:41] LABS: Abs Immature Grans 0.04 10^3/uL (0.0-0.06); Absolute Basophil Count 0.08 10^3/uL (0.0-0.2); Absolute Lymphocyte Count 3.09 10^3/uL (1.2-3.4); Absolute Monocyte Count 0.62 10^3/uL (0.1-0.8); Absolute Neutrophil Count 5.16 10^3/uL (1.2-6.7); Basophils % 0.9; Eosinophils % 2.2; HCT 43.8 % (36.0-46.0); HGB 14.5 g/dL (11.2-15.7); Immature Grans % 0.4; Lymphocytes % 33.6; MCHC 33.1 % (32.0-36.0); MCV 91 fL (80-95); MPV 10.7 fL (8.0-11.0); Monocytes % 6.7; Neutrophils % 56.2; Platelet Count 242 10^3/uL (130-400); RBC 4.83 10^6/uL (3.93-5.22); RDW 13.8 % (11.7-14.6); RDW-SD 46.1 fL; WBC 9.19 10^3/uL (4.4-10.8)
[2023-06-27] MEDS: Normal Saline 1,000 ML 1000 ML IV (07:55)
[2023-06-27 08:27] LABS: ALT 33 U/L (14-59); AST 19 U/L (15-37); Albumin 3.8 g/dL (3.4-5.0); Alkaline Phosphatase 91 U/L (46-116); Anion Gap 10.1 mmol/L (3-11); BUN 20 mg/dL (7-18); Bilirubin, Total 0.2 mg/dL (0.2-1.0); CO2 25.9 mmol/L (21.0-32.0); Calcium 9.5 mg/dL (8.5-10.1); Chloride 101 mmol/L (98-107); Estimated GFR 61.75 (mL/min/1.73m2); Glucose 219 mg/dL (74-106); Magnesium 1.7 mg/dL (1.8-2.4); Prothrombin Time 10.3 sec (9.3-11.0); Sodium 137 mmol/L (136-145); Total Protein 8.1 g/dL (6.4-8.2)
--- NOTE | 2023-06-27 09:00 | DI.CT_ITS ---
Exam(s) CT ABD AORTA CTA W RUNOFF EXAM: CT ABD AORTA CTA W RUNOFF CLINICAL HISTORY: left lower ext claudication. TECHNIQUE: Imaging Protocol: Axial computed tomography images with coronal and sagittal reformatted images were created and reviewed CONTRAST MATERIAL: Intravenous: Omnipaque 350 Contrast volume:100 ml Oral: None COMPARISON: CT CT ABDOMEN PELVIS W from 04/03/2023 FINDINGS: CHEST: AORTA: There is noncalcified plaque seen in the posterior wall of the partially visualized descending thoracic aorta. There is also significant atherosclerotic disease of the abdominal aorta without ev idence of aneurysm. Both calcified and noncalcified plaque is seen in the abdominal aorta. There is significant stenoses in the proximal renal arteries bilaterally. There is also some plaque at the o rigin of the mesenteric arteries. There is no critical stenosis at the aortic bifurcation. There is no aneurysmal dilatation of the co mmon iliac arteries. There is moderate atherosclerotic involvement of these vessels but no occlusion . The right external iliac artery is occluded at its mid aspect but reconstituted above the right co mmon femoral artery. There is significant atherosclerotic disease of the right common femoral artery . Left common femoral artery is atherosclerotic but patent. The left external iliac artery exhibits si gnificant atherosclerotic disease proximally with approximately 40 percent stenosis. There is also s ignificant disease in the distal aspect of this vessel but the left common femoral artery is patent. There is severe atherosclerotic involvement of the SFA arteries in both thighs in both SFA is are occ luded. There is reconstitution of both distal SFA arteries and contrast is seen in both popliteal ar teries. However, there is multilevel disease in the popliteal arteries, most prominent on the left s otis where there is a significant focal stenosis at the articular level in the left popliteal artery. There is severe disease involvement of the runoff vessels in both calves. Dominant runoff vessel in both calves is the posterior tibial artery which is seen descending to the level of medial malleoli i n beyond. Anterior tibial arteries are also patent. LUNG BASES: No infiltrates nor pleural effusions.. HEART: Normal size. No pericardial effusion. ABDOMEN: There is no evidence of abdominal aortic aneurysm nor dissection.There is no aneurysmal dilatation of the common iliac arteries.The celiac and superior mesenteric arteries are patent. There is no ascites. LIVER: Hepatomegaly and hepatic steatosis. No discrete focal hepatic lesions. GALLBLADDER/BILIARY: Gallbladder surgically absent. CBD is not dilated. PANCREAS: No evidence of pancreatic mass nor dilatation of the pancreatic duct. SPLEEN: Spleen is not enlarged. There are no intrasplenic lesions. ADRENALS: There are no significant adrenal masses. KIDNEYS: There is a benign cyst in the posterior cortex left kidney which does not require further wo rkup. It measures 3.2 x 3.1 cm. No solid renal masses nor calculi nor hydronephrosis.. LYMPH NODES: There is no retroperitoneal nor para-aortic adenopathy. No obvious mesenteric masses. ABDOMINAL WALL: No evidence of significant anterior abdominal wall hernia. GI: There are no ischemic appearing bowel loops. There is no evidence of bowel obstruction, free air , nor abscess. PELVIS: LYMPH NODES: There is no intrapelvic nor inguinal adenopathy. GI: No evidence of appendicitis.No evidence of sigmoid diverticulitis.Mobile cecum which is in the mi dline. No ischemic appearing bowel loops. No ascites. URINARY BLADDER: No calculi nor masses evident REPRODUCTIVE: Age-appropriate OSSEOUS: Left hip prosthesis. No fractures. No significant osseous lesions evident. IMPRESSION: 1. Advanced atherosclerotic involvement of the abdominal aorta and iliac vessels without evidence of aneurysms. 2. Occlusion of the right external iliac artery with reconstitution. 3. Severe bilateral SFA artery disease in the thighs. Also atherosclerotic involvement of the poplit eal arteries. 4. Significant calf runoff atherosclerotic disease. Posterior and anterior tibial arteries are paten t bilaterally but significantly atherosclerotic. Vascular surgery consultation recommended. RADIATION DOSE DELIVERED: 947.07mGy.cm Total DLP DATA REPOSITORY: All CT scans at this facility are submitted to the National Radiology Data Registry (NRDR) Dose Index Registry (DIR) with the [employer] (ACR). RADIATION OPTIMIZATION: All CT scans at this facility use at least one of these dose optimization te chniques: automated exposure control; mA and/or kV adjustment per patient size (includes targeted exa ms where dose is matched to clinical indication); or iterative reconstruction.
[2023-06-27] MEDS: Omnipaque 350 MG/ML 50 ML BTL IJ (10:05)
--- NOTE | 2023-06-27 10:21 | DI.VRAD_ITS ---
Addendum created by Marilia Benítez MD on 06/27/2023 10:26:40 AM EDT: THIS REPORT CONTAINS FINDINGS THAT MAY BE CRITICAL TO PATIENT CARE. The findings were verbally communicated via telephone conference with TYREE Castellanos at 10:26 AM EDT on 06/27/2023. The findings were acknowledged and understood. Initial report created on 06/27/2023 10:21:19 AM EDT: PROCEDURE INFORMATION: Exam: CTA Abdominal Aorta and Bilateral Lower Extremities (Run-off) With Contrast Exam date and time: 06/27/2023 9:44 AM Age: 67 years old Clinical indication: Condition or disease; Other: Claudication TECHNIQUE: Imaging protocol: Computed tomographic angiography of the of the abdominal aorta, pelvis and bilateral lower extremities with contrast. 3D rendering (Not supervised by radiologist): MIP and/or 3D reconstructed images were created by the technologist. COMPARISON: CT ABD AORTA CTA W RUNOFF 05/27/2022 9:20 AM FINDINGS: Aorta: No aortic aneurysm. No aortic dissection. Celiac trunk and mesenteric arteries: Stenosis at the origin of the celiac artery and SMA. Stenosis at the origin of the renal arteries Renal arteries: See Celiac trunk and mesenteric arteries finding. Right iliac arteries: Stable Occlusion in the right external iliac artery. Series 5, image 64. It reconstitutes on image 66.. Right femoral/popliteal arteries: No occlusion or significant stenosis. Right infrapopliteal arteries: No occlusion or significant stenosis. Left iliac arteries: No occlusion or significant stenosis. Left femoral/popliteal arteries: Stable Occlusion in the left superficial femoral artery. Series 5, image 88. . It reconstitutes on image 91. Intermittent stenosis. Newly developed Occlusion in the distal left superficial femoral artery image 122.. Reconstitution in the left popliteal artery. Left infrapopliteal arteries: No occlusion or significant stenosis. Liver: No mass. Gallbladder and bile ducts: Cholecystectomy Pancreas: Unremarkable. No mass. No ductal dilation. Spleen: Normal. No splenomegaly. Adrenal glands: Normal. No mass. Kidneys and ureters: Simple cyst posterior left kidney 3.2 cm . No follow-up imaging recommended . Stomach and bowel: Unremarkable. No obstruction. No mucosal thickening. Appendix: No evidence of appendicitis. Urinary bladder: Unremarkable. No mass. Reproductive: Unremarkable as visualized. Intraperitoneal space: Unremarkable. No free air. No significant fluid collection. Lymph nodes: No lymphadenopathy. Bones/joints: Left total hip replacement Soft tissues: Unremarkable. IMPRESSION: 1. Occlusion in the left superficial femoral artery. Series 5, image 88. . It reconstitutes on image 91. Intermittent stenosis. Occlusion in the distal left superficial femoral artery image 122.. 2. Reconstitution in the left popliteal artery. 3. Occlusion in the right external iliac artery. Series 5, image 64. It reconstitutes on image 66.. Dictated and Authenticated by: Marilia Benítez MD. Ordering:MAJO Guerrero MD
--- NOTE | 2023-06-27 12:20 | ED.PROG_ITS ---
Date of service: 06/27/23 Time of Service: 12:20 Medical Decision Making 12: 22 patient changed her mind about leaving AGAINST MEDICAL ADVICE. I have again contacted vascular surgery and discussed plan of care, vascular surgery team will be reaching out in the next couple days to schedule clinic visit early next week. Patient given home care instructions and return precautions Sign Out Sign Out Data: Sign Out Comment: Patient with PVD and PAD who had a hip replacement 1 month ago. She feels much better and has been walking more and getting claudication. Recent ABIs, Doppler ultrasound, and vein mapping she has severe peripheral artery disease in her left lower extremity. Presents with discoloration of left forefoot x1 month with increasing pain and numbness that been worse the past 48 hours. She says the pain is severe. She is being seen by vascular at [facility] and will likely need transfer there. She was scheduled for CT angiogram of her aorta with lower extremity runoff. This has not been done yet. Last updated by Renetta Vernon MD at 06/27/23 08:56 Discharge Plan Disposition Patient Disposition: Home Condition: Stable Discharge Details Clinical Impression: Femoral artery occlusion, Claudication Primary Care Provider: Maribeth Fish ED Provider: Cesar Haider Home Meds and New Rx's Prescriptions: No Action insulin glargine [Lantus Solostar U-100 Insulin] 100 unit/mL (3 mL) insulin pen 12 unit subcut HS ondansetron HCl 8 mg tablet 8 mg PO TID PRN (Reason: nausea and vomiting) Qty: 60 0RF glipizide 10 mg tablet extended release 24hr 10 mg PO BID Qty: 180 3RF atorvastatin 20 mg tablet 20 mg PO QHS Qty: 90 3RF metformin 500 mg tablet extended release 24 hr 1,000 mg PO BID Qty: 360 3RF varenicline 1 mg tablet 1 mg PO BID Qty: 168 0RF losartan 25 mg tablet 25 mg PO DAILY Qty: 90 3RF cephalexin 500 mg capsule 500 mg PO QID Qty: 40 0RF (DME) blood-glucose meter Misc See Rx Instructions .ROUTE .MEDSUPPLY Qty: 1 0RF Rx Instructions: As directed clopidogrel [Plavix] 75 mg tablet 75 mg PO DAILY Qty: 90 3RF (DME) Dexcom G7 Sensor Device See Rx Instructions .Route Qty: 1 3RF Rx Instructions: Continuous glucose monitor (DME) pen needle, diabetic [BD Ultra-Fine Short Pen Needle] 31 gauge x 5/16 needle See Rx Instructions .MEDSUPPLY Qty: 100 3RF Rx Instructions: Use with pen daily (DME) OneTouch Verio test strips Strip See Rx Instructions .ROUTE .MEDSUPPLY Qty: 200 4RF Rx Instructions: Check blood sugar twice a day (DME) lancets [OneTouch Delica Plus Lancet] 33 gauge misc See Rx Instructions .Route Qty: 200 3RF Rx Instructions: Check blood sugar twice a day acetaminophen 500 mg tablet 1,000 mg PO Q8H PRN Qty: 90 0RF Rx Instructions: Take two tablets up to every 8 hours as needed for pain pantoprazole 40 mg tablet,delayed release (DR/EC) 40 mg PO DAILY Qty: 14 0RF docusate sodium [Colace] 100 mg capsule 100 mg PO BID Qty: 30 0RF Discharge Instructions Instructions: Peripheral Vascular Disease (ED) Additional Instructions: Please return to the emergency department for any worsening symptoms. Follow-up closely with vascular surgery team at [facility].
== END 2023-06-27 12:40 | disposition home or self-care (01) ==
PROVIDERS: Emergency Medicine; Emergency Provider Emergency Medicine; PCP Nurse Practitioner Family
DX: I77.1 Stricture of artery (principal); M79.672 Pain in left foot; I73.9 Peripheral vascular disease, unspecified; Z53.29 Procedure and treatment not carried out because of patient's decision for other reasons; E11.40 Type 2 diabetes mellitus with diabetic neuropathy, unspecified; Z79.4 Long term (current) use of insulin; F17.200 Nicotine dependence, unspecified, uncomplicated
CPT/HCPCS: 75635; 80053; 99285; 83735; 85025; 85610; 85730; Q9967

== ENCOUNTER → 2023-07-16 09:12 | Outpatient (BNVA) | payer MEDICARE, MEDICAID, SELFPAY | PROVIDERS: PCP Nurse Practitioner Family; Visit Provider Student in an Organized Health Care Education/Training Program | DX: Z47.1 Aftercare following joint replacement surgery (principal); Z96.642 Presence of left artificial hip joint ==

== ENCOUNTER 2023-10-19 15:48 | Outpatient (REF) | payer MEDICARE, MEDICAID, SELFPAY | END 2023-10-19 15:49 | disposition home or self-care (01) | LOC: NCHCN 15:48 | PROVIDERS: PCP Nurse Practitioner Family; Visit Provider Nurse Practitioner Family | DX: L98.8 Other specified disorders of the skin and subcutaneous tissue (principal); T81.89XD Other complications of procedures, not elsewhere classified, subsequent encounter; E11.51 Type 2 diabetes mellitus with diabetic peripheral angiopathy without gangrene | CPT/HCPCS: 87077; 87070; 87186; 87205 ==

== ENCOUNTER 2023-11-06 13:00 | Outpatient (REF) | payer MEDICARE, MEDICAID, SELFPAY ==
[2023-11-06 12:47] LABS: COMMENT (LAB VIEW ONLY) 84.33 mg/dL; Microalb ug/mg Crea 74.9 ug/mg Cr
== END 2023-11-06 13:01 | disposition home or self-care (01) ==
LOC: LBN 13:00
PROVIDERS: PCP Nurse Practitioner Family; Visit Provider Nurse Practitioner Family
DX: E11.9 Type 2 diabetes mellitus without complications (principal)
CPT/HCPCS: 82043; 82570

== ENCOUNTER 2023-11-12 13:38 | Outpatient (REF) | payer MEDICARE, MEDICAID, SELFPAY | END 2023-11-12 13:39 | disposition home or self-care (01) | LOC: LBN 13:38 | PROVIDERS: PCP Nurse Practitioner Family; Referring Provider Nurse Practitioner Family; Visit Provider Nurse Practitioner Family | DX: R30.0 Dysuria (principal) | CPT/HCPCS: 87077; 87086; 87186 ==

== ENCOUNTER 2024-02-24 05:16 | Outpatient (CLI) | payer MEDICARE, MEDICAID, SELFPAY ==
[2024-02-24 12:31] LABS: Abs Immature Grans 0.01 10^3/uL (0.0-0.06); Absolute Basophil Count 0.08 10^3/uL (0.0-0.2); Absolute Eosinophil Count 0.16 10^3/uL (0.0-0.7); Absolute Lymphocyte Count 3.48 10^3/uL (1.2-3.4); Absolute Monocyte Count 0.52 10^3/uL (0.1-0.8); Absolute Neutrophil Count 4.83 10^3/uL (1.2-6.7); Basophils % 0.9 %; Eosinophils % 1.8 %; HGB 13.4 g/dL (11.2-15.7); Immature Grans % 0.1 %; Lymphocytes % 38.3 %; MCH 29.3 pg (27.0-33.0); MCHC 31.9 % (32.0-36.0); MCV 92 fL (80-95); MPV 11.7 fL (8.0-11.0); Monocytes % 5.7 %; Neutrophils % 53.2 %; Platelet Count 239 10^3/uL (130-400); RBC 4.58 10^6/uL (3.93-5.22); RDW 15.4 % (11.7-14.6); RDW-SD 51.7 fL; WBC 9.08 10^3/uL (4.4-10.8)
[2024-02-24 12:54] LABS: ALT 39 U/L (14-59); AST 17 U/L (15-37); Albumin 3.7 g/dL (3.4-5.0); Alkaline Phosphatase 71 U/L (46-116); Anion Gap 5.8 mmol/L (3-11); BUN 20 mg/dL (7-18); Bilirubin, Total 0.2 mg/dL (0.2-1.0); CO2 26.2 mmol/L (21.0-32.0); Calcium 9.1 mg/dL (8.5-10.1); Chloride 104 mmol/L (98-107); Estimated GFR 61.36 (mL/min/1.73m2); Glucose 261 mg/dL (74-106); Potassium 4.3 mmol/L (3.5-5.1); Sodium 136 mmol/L (136-145); Total Protein 7.7 g/dL (6.4-8.2)
== END 2024-02-24 05:17 | disposition home or self-care (01) ==
LOC: LOS 05:17
PROVIDERS: PCP Nurse Practitioner Family; Visit Provider Nurse Practitioner Family
DX: Z00.00 Encounter for general adult medical examination without abnormal findings (principal); E11.51 Type 2 diabetes mellitus with diabetic peripheral angiopathy without gangrene
CPT/HCPCS: 36415; 80053; 85025

== ENCOUNTER → 2024-03-15 01:05 | Outpatient (CLI) | payer MEDICARE, MEDICAID, SELFPAY ==
--- NOTE | 2024-03-15 06:30 | DI.CTLCSR_ITS ---
Exam(s) CT CHEST LUNG CANCER SCREEN EXAM: CT CHEST LUNG CANCER SCREEN CLINICAL HISTORY: Screening for lung cancer,current smoker, f17.210. TECHNIQUE: Imaging Protocol: Low Dose Technique CONTRAST MATERIAL: None COMPARISON: CT CT CHEST LUNG CANCER SCREEN from 01/16/2023 FINDINGS: CHEST: LUNGS: There are no ominous pulmonary nodules. There are no confluent infiltrates. No pleural effusi ons. MEDIASTINUM: There is no obvious hilar nor mediastinal adenopathy. CARDIAC: Heart size is normal. There is no pericardial effusion.Caliber of the thoracic aorta is wit hin normal limits. OTHER: OSSEOUS: No significant osseous lesions.. IMPRESSION: 1. No new significant lung nodules. 2. No infiltrates nor pleural effusions nor new significant intrathoracic adenopathy. 3. Lung RADS Cat 1 - Negative: No nodules and definitely benign nodules Lung-RADS 1.0 CATEGORIES: Category 0 - Prior chest CT exam(s) being located for comparison. Category 1 - Annual screening in 12 months. No nodules or definitely benign nodules. Category 2 - Annual screening in 12 months. Benign appearance. Nodules with low likelihood of becomin g active cancer. Category 3 - 6-month follow-up. Probably benign. Short-term follow-up suggested. Nodules with low lik elihood of becoming active cancer. Category 4A - 3-month follow-up and CT/PET if >8 mm in size. Suspicious finding. Findings which requi re additional testing. Category 4B - Findings which require additional testing and tissue sampling. Category 4X - Category 3 or 4 nodules with additional features or imaging findings that increases the suspicion of malignancy. Modifier S- Potentially clinically significant findings (non lung cancer) RADIATION DOSE DELIVERED: Total DLP DATA REPOSITORY: All CT scans at this facility are submitted to the National Radiology Data Registry (NRDR) Dose Index Registry (DIR) with the [employer] (ACR). RADIATION OPTIMIZATION: All CT scans at this facility use at least one of these dose optimization te chniques: automated exposure control; mA and/or kV adjustment per patient size (includes targeted exa ms where dose is matched to clinical indication); or iterative reconstruction.
== END ==
PROVIDERS: PCP Nurse Practitioner Family; Visit Provider Nurse Practitioner Family
DX: F17.210 Nicotine dependence, cigarettes, uncomplicated (principal); Z12.2 Encounter for screening for malignant neoplasm of respiratory organs
CPT/HCPCS: 71271

== ENCOUNTER 2024-04-21 10:57 | Outpatient (CLI) | payer MEDICARE, MEDICAID, SELFPAY ==
--- NOTE | 2024-04-21 08:30 | DI.RAD_ITS ---
Exam(s) XR HIP LT AP LAT ONLY EXAM: XR HIP LT AP LAT ONLY CLINICAL HISTORY: ANNUAL F/U L MONIK. TECHNIQUE: 2D digital imaging was performed. Left total hip replacement images were obtained. AP an d lateral views were obtained. COMPARISON: CR XR HIP LT COMPLETE AP PELVIS from 05/04/2023 FINDINGS: BONES: There are stable post operative changes of a left total hip replacement present. No fracture or dislocation. JOINTS: The orthopedic hardware is in good position. No evidence of hardware loosening. SOFT TISSUE: Vascular calcifications are present. IMPRESSION: Stable left total hip replacement. DATA REPOSITORY: RADIATION DOSE DELIVERED:
== END 2024-04-21 10:58 | disposition home or self-care (01) ==
LOC: DIORS 10:58
PROVIDERS: PCP Nurse Practitioner Family; Referring Provider Nurse Practitioner Family; Visit Provider Student in an Organized Health Care Education/Training Program
DX: Z96.642 Presence of left artificial hip joint (principal); M70.62 Trochanteric bursitis, left hip
CPT/HCPCS: 99213; 73502

== ENCOUNTER 2024-06-02 10:44 | Outpatient (CLI) | payer MEDICARE, MEDICAID, SELFPAY ==
[2024-06-02 12:44] LABS: Abs Immature Grans 0.04 10^3/uL (0.0-0.06); Absolute Eosinophil Count 0.16 10^3/uL (0.0-0.7); Absolute Lymphocyte Count 4.25 10^3/uL (1.2-3.4); Absolute Monocyte Count 0.65 10^3/uL (0.1-0.8); Absolute Neutrophil Count 5.55 10^3/uL (1.2-6.7); Basophils % 0.9 %; Eosinophils % 1.5 %; HCT 42.7 % (36.0-46.0); Immature Grans % 0.4 %; Lymphocytes % 39.5 %; MCH 29.9 pg (27.0-33.0); MCHC 32.8 % (32.0-36.0); MCV 91 fL (80-95); MPV 11.3 fL (8.0-11.0); Neutrophils % 51.7 %; Platelet Count 245 10^3/uL (130-400); RBC 4.68 10^6/uL (3.93-5.22); RDW-SD 49.9 fL; WBC 10.75 10^3/uL (4.4-10.8)
[2024-06-02 13:16] LABS: ALT 50 U/L (14-59); AST 23 U/L (15-37); Albumin 3.8 g/dL (3.4-5.0); Alkaline Phosphatase 72 U/L (46-116); Anion Gap 13.9 mmol/L (3-11); BUN 22 mg/dL (7-18); Bilirubin, Total 0.23 mg/dL (0.2-1.0); CO2 24.1 mmol/L (21.0-32.0); Calcium 9.2 mg/dL (8.5-10.1); Calculated LDL 3 mg/dL (<100); Chloride 103 mmol/L (98-107); Cholesterol 121 mg/dL (<200); Estimated GFR 61.36 (mL/min/1.73m2); Glucose 159 mg/dL (74-106); HDL Cholesterol 40 mg/dL (40-60); Lipase 25 U/L (16-77); Potassium 3.9 mmol/L (3.5-5.1); Sodium 141 mmol/L (136-145); Total Protein 7.9 g/dL (6.4-8.2); Triglyceride 394 mg/dL (<150)
[2024-06-03 11:27] LABS: HBs Antibody, Quant <3.1 mIU/mL (See Note); Hep B Surface Ab Negative (See Note); Hepatitis B Core Antibody Negative (Negative); Hepatitis B Surface Antigen Negative (Negative)
== END 2024-06-02 10:45 | disposition home or self-care (01) ==
LOC: LOS 10:44
PROVIDERS: PCP Nurse Practitioner Family; Referring Provider Nurse Practitioner Family; Visit Provider Nurse Practitioner Family
DX: I10 Essential (primary) hypertension (principal); R11.2 Nausea with vomiting, unspecified; R19.7 Diarrhea, unspecified; Z11.59 Encounter for screening for other viral diseases
CPT/HCPCS: 36415; 80053; 80061; 83690; 86704; 86706; 87340; 85025

== ENCOUNTER 2024-06-03 21:02 | Outpatient (REF) | payer MEDICARE, MEDICAID, SELFPAY ==
[2024-06-07 14:34] LABS: Helicobacter pylori Ag, Feces Negative (Negative)
== END 2024-06-03 21:03 | disposition home or self-care (01) ==
LOC: LBN 21:02
PROVIDERS: PCP Nurse Practitioner Family; Visit Provider Nurse Practitioner Family
DX: R11.2 Nausea with vomiting, unspecified (principal); R19.7 Diarrhea, unspecified
CPT/HCPCS: 87338

== ENCOUNTER → 2024-07-19 08:10 | Outpatient (BNVA) | payer MEDICARE, MEDICAID, SELFPAY | PROVIDERS: PCP Nurse Practitioner Family; Referring Provider Nurse Practitioner Family; Visit Provider Surgery | DX: Z12.11 Encounter for screening for malignant neoplasm of colon (principal); E11.9 Type 2 diabetes mellitus without complications; F17.210 Nicotine dependence, cigarettes, uncomplicated | CPT/HCPCS: 99213 ==

== ENCOUNTER 2024-08-17 07:22 | Day surgery (SDC) | payer MEDICARE, MEDICAID, SELFPAY ==
--- NOTE | 2024-08-16 16:30 | PDOC.DSDIS_ITS ---
Date of service: 08/17/24 Time of Service: 10:25 Discharge Plan Disposition Patient Disposition: Home Condition: Good Discharge Details Reason For Visit: EGD and colonoscopy Attending Provider: Jens Monteiro Primary Care Provider: Maribeth Fish Home Meds and New Rx's Prescriptions: Continued clopidogrel [Plavix] 75 mg tablet 75 mg PO DAILY Qty: 90 3RF losartan 50 mg tablet 50 mg PO DAILY Qty: 90 3RF aspirin 81 mg tablet,delayed release (DR/EC) 81 mg PO DAILY PRN Patient Comments: When off xarelto. metformin 500 mg tablet extended release 24 hr 1,000 mg PO BID Qty: 360 3RF (DME) pen needle, diabetic [BD Ultra-Fine Short Pen Needle] 31 gauge x 5/16 needle See Rx Instructions .MEDSUPPLY Qty: 100 3RF Rx Instructions: Use with pen daily bupropion HCl 300 mg tablet extended release 24 hr 300 mg PO DAILY Qty: 90 3RF insulin glargine [Lantus Solostar U-100 Insulin] 100 unit/mL (3 mL) insulin pen 12 unit subcut DAILY Qty: 9 3RF (DME) blood-glucose meter Misc See Rx Instructions .ROUTE .MEDSUPPLY Qty: 1 0RF Rx Instructions: As directed atorvastatin 20 mg tablet 20 mg PO QHS Qty: 90 3RF glipizide 10 mg tablet extended release 24hr 10 mg PO BID Qty: 180 3RF (DME) lancets [OneTouch Delica Plus Lancet] 33 gauge misc See Rx Instructions .Route Qty: 200 3RF Rx Instructions: Check blood sugar twice a day ondansetron HCl 8 mg tablet 8 mg PO TID PRN (Reason: nausea and vomiting) Qty: 60 0RF (DME) OneTouch Verio test strips Strip See Rx Instructions .ROUTE .MEDSUPPLY Qty: 200 4RF Rx Instructions: Check blood sugar twice a day Held Xarelto 20 mg tablet 20 mg PO DAILY Hold Instructions: Resume on 08/18/24. Rx Instructions: must administer with evening meal Discontinued polyethylene glycol 3350 17 gram/dose powder 238 g PO ONCE Qty: 238 0RF Rx Instructions: take per colonoscopy instructions bisacodyl [Dulcolax (bisacodyl)] 5 mg tablet,delayed release (DR/EC) 5 mg PO ONCE Qty: 4 0RF Rx Instructions: take per colonoscopy instructions Discharge Instructions Instructions: Gastritis, [place] Diet Additional Instructions: Kera, it was good seeing you today, and I hope you are comfortable during the procedure, and that you make a quick recovery. Your upper endoscopy went very smoothly. The most obvious thing that I see you are a little bit of changes around the connection from your esophagus onto your stomach that seem consistent with Reynoso's esophagus, which usually occurs as a result of longstanding gastroesophageal reflux disease. Although this is thought to be a risk factor for esophageal cancer, I do not see anything worrisome today. I did do biopsies of it, however, to be safe. He also have a small hiatal hernia in this area. This occurs when the top portion of your stomach slides above your breathing muscle which is also called the diaphragm. Hiatal hernias are typically graded 1 through 4, with 4 being the most severe. I would consider years a grade 1, and I doubt it is accounting for the symptoms that you are experiencing. You have quite a bit of inflammation at the bottom part of your stomach, which is also called the antrum as well as the first portion of your small intestine, which is known as the duodenum. This is most commonly found in patients who have high stomach acid production, or as a side effect of some of the different types of medication that you take. Typically, I recommend treatment with proton pump inhibitor medications, but your allergy to omeprazole makes this a little challenging. There is another group of medications known as H2 blockers which we could also try. Similar to your GE junction, I did multiple biopsies of these areas as well. I would like to see the results of the biopsies before making any definitive recommendations for your treatment. Those will take about a week or so to get back, but once I have those, I will be in touch. If you need anything or have any questions in the meantime, please do not hesitate to ask. 1. If tolerated, consume a soft, low fiber diet for 1-2 days. [address] Do not drive, drink alcohol, operate machinery, make critical decisions, or do activities that require coordination or balance for 24 hours. 3. You may experience a sore throat for 24 to 48 hours. You may use throat lozenges or gargle with warm salt water to relieve the discomfort. 4. Because air was put into your stomach during the procedure, you may experience some belching. 5. Go directly to the emergency room if you notice any of the following: Develop chills (warm to touch), or if you have a thermometer and your temperature is above 101 Difficulty breathing or difficultly swallowing Persistent vomiting Severe abdominal pain, other than gas cramps Severe chest pain Black, tarry stools Any bleeding ? exceeding one tablespoon 6. Call your physician if the site where your intravenous was started becomes red, swollen, painful, and warm to touch. 7. Your physician has reviewed your pre-procedure medications. Please continue to take those medications as previously ordered. You will be given specific information/education regarding any changes to your medications before leaving. Activity:: Activity as Tolerated Diet:: As Tolerated Discharge Orders Discharge Orders: Discharge Order (Routine); Ordered 08/16/24 Ordered By: Jens Monteiro DS: Diagnosis Discharge Diagnosis (1) Gastroesophageal reflux disease: Status: Chronic Asessment and Plan: Follow-up on biopsy results
--- NOTE | 2024-08-16 16:31 | W.PM.ENDDOP ---
Date of service: 08/17/24 Time of Service: 10:29 Endoscopy Report DATE OF PROCEDURE: 08/17/24 PRE-OP DIAGNOSIS: Dyspepsia POST-OP DIAGNOSIS: other (Gastritis, duodenitis, grade 1 hiatal hernia, short segment Reynoso's esophagus) PROCEDURE: EGD with biopsies SURGEON: Jens Monteiro ANESTHESIA TYPE: General:No Airway ESTIMATED BLOOD LOSS: 10 PATHOLOGY: other (Cold forceps biopsies of duodenum, gastric antrum, gastric body, GE junction, esophagus) COMPLICATIONS: None DISPOSITION: same day INDICATIONS: Kera is a 68-year-old woman with poorly controlled dyspepsia despite longstanding PPI therapy, she is also due for screening colonoscopy. However, in the weeks leading up to today, she has declined the screening colonoscopy. We talked about the implications of this decision, and I suggest that she discuss it with her primary care physician as well. Regardless, we will move forward with the EGD today to help workup her dyspepsia and dysphagia. PREP: Miralax/Dulcolax PROCEDURE START TIME: 10:10 PROCEDURE END TIME: 10:17 FINDINGS: Short segment Reynoso's esophagus at 37 cm from the incisors, antral gastritis, peptic duodenitis, grade 1 hiatal hernia PROCEDURE DESCRIPTION: After the initiation of anesthesia and with the assistance of a bite block, I advanced a standard gastroscope through the mouth past the hypopharynx and into the esophagus.? Under the direct vision of the scope, I advanced down the esophagus towards the stomach.? The upper, mid, and lower esophagus were all normal and healthy appearing. There was very mild irregularity of the GE junction at 37 cm from the incisors. Narrowband imaging was used to assist with the analysis here. Some features did seem consistent with Reynoso's esophagus, so cold forceps biopsies were performed. I advanced down into the stomach and insufflated into the rugae were obliterated. I performed retroflexion. There are signs of grade 1 hiatal hernia. I did not see any evidence of active inflammation adjacent to the hernia. The gastric cardia and body were largely normal-appearing. Gastric antrum showed evidence of thickened mucosa and inflamed tissue consistent with antral gastritis. I am able to navigate across the pylorus with ease into the duodenum, which also has hyperemic mucosa. Clinically, it appears consistent with peptic duodenitis. I did perform cold forceps biopsies of the duodenal mucosa to confirm this diagnosis. There was minimal bleeding from the biopsy sites. I then brought the camera back into the stomach and perform some nondirected cold forceps biopsies of the gastric antrum and body to rule out Helicobacter pylori. The stomach was then emptied, and the camera was brought back out along the length of the esophagus 1 last time. I also perform some biopsies along the length of the esophagus to rule out esophagitis as a source of her symptoms.
[2024-08-17 07:37] VITALS: BP 139/86; PULSE 100; RESP 20; TEMP 36.6; O2SAT 99
[2024-08-17] MEDS: Normal Saline Flush 10 ML SYR IV (08:03)
--- NOTE | 2024-08-17 08:03 | ANES.PREOP_ITS ---
General Info Date of Service Date Performed: 08/17/24 Height: 5 ft 3 in Weight: 71.758 kg Body Mass Index (BMI): 28.0 Surgical Procedure: Operation Date: 08/17/24 09:05 Proposed Procedure Side Surgeon p Gastroscopy Jens Monteiro MD Meds Allergies and Home Medications Allergies Allergy/AdvReac Type Severity Reaction Status Date / Time empagliflozin (From AdvReac Intermediate Vaginal Verified 08/15/24 12:41 Jardiance) yeast infections omeprazole (From Prilosec) AdvReac Unknown diarrhea Verified 08/15/24 12:41 Home Medication ?Medication ?Instructions ?Recorded blood-glucose meter #1 ea 05/09/20 clopidogrel 75 mg tablet (Plavix) 75 mg PO DAILY #90 tabs 06/29/23 rivaroxaban 20 mg tablet (Xarelto) 20 mg PO DAILY 08/11/23 atorvastatin 20 mg tablet 20 mg PO QHS #90 tabs 09/16/23 losartan 50 mg tablet 50 mg PO DAILY #90 tabs 10/05/23 metformin 500 mg tablet,extended 1,000 mg (2 x 500 mg) PO BID #360 11/06/23 release 24 hr tabs glipizide 10 mg tablet, extended 10 mg PO BID #180 tabs 01/27/24 release 24 hr bupropion HCl 300 mg 24 hr tablet, 300 mg PO DAILY #90 tabs 03/17/24 extended release insulin glargine 100 unit/mL (3 12 unit (0.12 mL) subcut DAILY #9 03/17/24 mL) subcutaneous pen (Lantus SYRGS Solostar U-100 Insulin) pen needle, diabetic 31 gauge x #100 ea 03/17/24 5/16 (BD Ultra-Fine Short Pen Needle) lancets 33 gauge (OneTouch Delica #200 ea 06/15/24 Plus Lancet) ondansetron HCl 8 mg tablet 8 mg PO TID PRN nausea and 07/14/24 vomiting #60 tabs aspirin 81 mg tablet,delayed 81 mg PO DAILY PRN 07/19/24 release blood sugar diagnostic (OneTouch #200 ea 08/04/24 Verio test strips) Current Visit Medications: Current Medications Generic Name Dose Route Start Last Admin Trade Name Freq PRN Reason Stop Dose Admin IV Miscellaneous Supplies 1 each 08/17/24 06:00 Iv Access IV 09/15/24 23:59 DIRECTED LUPE Ondansetron HCl 4 mg 08/16/24 16:32 Ondansetron 4 Mg/2 Ml Vial IVP 09/15/24 16:31 Q4H PRN PRN Nausea / Vomiting Sodium Chloride 0 ml 08/17/24 06:00 Normal Saline Flush 10 Ml Syr IV 09/15/24 23:59 PRN PRN Sodium Chloride 0 ml 08/17/24 06:00 Normal Saline 10 Ml Vial IJ 09/15/24 23:59 DIRECTED PRN Sterile Water 0 ml 08/17/24 06:00 Water,Injection,Sterile 10 Ml Vial IJ 09/15/24 23:59 DIRECTED PRN PFSH Active Problems Active Problems: Problem Status Onset Code Encounter for screening colonoscopy Acute Z12.11 Nausea vomiting and diarrhea Acute R11.2, R19.7 Trochanteric bursitis of left hip Acute M70.62 Metabolic dysfunction-associated steatotic liver disease (MASLD) Chronic K76.0 Major depressive disorder, recurrent Chronic F33.9 Type 2 diabetes mellitus with diabetic neuropathy Chronic E11.40 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 Chronic kidney disease Chronic N18.9 Hypertension Chronic I10 Osteoarthritis of left knee Chronic M17.12 Onychomycosis Chronic B35.1 Cigarette smoker Chronic F17.210 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 Pt. 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 and patch angioplasty S/P vascular surgery (07/10/23) Right external iliac stent Status post total replacement of left hip (04/21/23) S/P laparoscopic procedure S/P section S/P cholecystectomy History of bilateral tubal ligation Tobacco Smoking/Tobacco Use Status: Current every day Tobacco Type: cigarettes Smoking packs per day: 1 Smoking cigarettes per day: 20.0 Years smoked: 53 Smoking pack- years: 53.00 Passive smoking exposure: No Second hand exposure: Yes Alcohol Alcohol Intake: never Substance Use Substance use: Never Substance use type: does not use Vital Signs and Lab Results Vital Signs Most Recent Vital Signs in EMR: Most Recent Vital Signs Temp Pulse Resp BP Pulse Ox 36.6 C 100 H 20 139/86 99 08/17/24 07:37 08/17/24 07:37 08/17/24 07:37 08/17/24 07:37 08/17/24 07:37 Point of Care Results Point of Care Results: Finger Stick Blood Glucose 151 08/17/24 07:57 Lab Results Blood Type / Crossmatch: No Data to Display Complete Blood Count: No Data to Display Complete Metabolic Panel: No Data to Display Liver Function Panel: No Data to Display Coagulation Panel: No Data to Display Cardiac Panel: No Data to Display Arterial Blood Gas: No Data to Display Venous Blood Gas: No Data to Display Pancreas Panel: No Data to Display Thyroid Panel: No Data to Display Infectious Disease: No Data to Display Blood Cultures: No Data to Display Toxicology Panel: No Data to Display Imaging and Studies Imaging and Studies Study information below may be from another EMR and interpreted by another provider. Please see original notes in EMR for more complete details. EKG Summary: DATE/TIME OF SERVICE: 01/24/211646 : 1955PERFORMING LOCATION: [place] APPROVED REPORT Exam: Resting ECG Patient Location: E HR:87 bpm ECG Measurements Heart Rate 87 AXIS KS 151 P 55 QRSd 79 QRS 47 QT 386 T56 QTc 465 Conclusion Sinus rhythm...normal P axis, V-rate 60- 99 Echocardiogram Summary: Date of Exam: 06/07/20ex: F Admission Date: 06/07/20 : 1955 Age: 64 Exam(s) a US:US echocardiogram APPROVED REPORT EXAM: Comprehensive 2D, Doppler, and color-flow Echocardiogram Patient Location: Out-Patient Electrical Design Technologist: Debbie Galindo RDCS (AE) Indications: Stroke, CVA Other Information Study Quality: Adequate Conclusion Left Ventricle : The left ventricle is normal size. The left ventricular systolic function is normal. The left ventricular ejection fraction is within the normal range. There is normal left ventricular wall thickness. There is normal LV segmental wall motion. Mild diastolic dysfunction is present (impaired relaxation pattern). LVEF is 55%. Right Ventricle : The right ventricle is normal size. The right ventricular systolic function is normal. Atria : The left atrium size is normal. The right atrium size is normal. Valves: There are no hemodynamically significant valvular lesions. Great Vessels : The aortic root is normal in size. The ascending aorta is mildly dilated. Aortic arch is not well visualized. IVC is normal in size and collapses >50% with inspiration. There is no prior study available for comparison. Carotid Artery Summary:: Date of Exam: 05/11/20ex: F Admission Date: 05/11/20 : 1955 Age: 64 Exam(s) a US:US carotid EXAM: US CAROTID CLINICAL HISTORY: frequent falls,bilat claudification of lower limb,smoker,low hdl,r29.6. TECHNIQUE: Ultrasound carotids performed using grayscale, color-flow, and spectral Doppler imaging. COMPARISON: US US carotid from 02/24/2019 FINDINGS: RIGHT CAROTID ARTERY: Plaque: [id number] calcific plaque in the carotid bulb and proximal ICA. Velocity elevation: No hemodynamically significant velocity elevation. LEFT CAROTID ARTERY: Plaque: [id number] calcific plaque in the carotid bulb and proximal ICA. Velocity elevation: No hemodynamically significant velocity elevation. VERTEBRAL ARTERIES: Antegrade flow. Measurements: R Bulb: 70.7cm/s PS / 19.9cm/s ED R CCA: 75.2cm/s PS / 18cm/s ED R ECA: PS / ED R ICA Prox: 114.6cm/s PS /29.4cm/s ED R ICA Mid: 104.1cm/s PS / 28.4cm/s ED R ICA Distal: 65.3cm/s PS /22.3cm/s ED R Vert: 27.3cm/s PS / 8.3cm/s ED R SVR: 1.52 R DVR: 1.63 L Bulb: 83.1cm/s PS /21.7cm/s ED L CCA: 69.4cm/s PS / 19.9cm/s ED L ECA: PS / ED L ICA Prox:94.85cm/s PS / 24.95cm/s ED L ICA Mid: 90.7cm/sPS / 34.2cm/s ED L ICA Distal: 100.8cm/s PS / 34.7cm/s ED L Vert: 41.5cm/s PS / 16.3cm/s ED L SVR: 1.45 L DVR: 1.53 IMPRESSION: No evidence for hemodynamically significant carotid stenosis. Anesthesia Assessment and Plan Anesthesia History Personal History: PONV Family History: No Family History of Anesthesia Complications Exercise Tolerance Exercise Tolerance: Metabolic Equivalents>4 Cardiac & Pulmonary Exam Cardiac Exam: Normal S1/S2 Heart Sounds Pulmonary Exam: Clear Bilateral Breath Sounds Implantable Cardiac Device Does patient have a Pacemaker or an ICD?: No Airway Exam Known Difficult Airway: No Mallampati Class: 3 Mouth Opening: Normal (> 3cm) Thyromental Distance: Less than 3 cm Neck Range of Motion: Full ROM Neck Circumference: Thick Teeth Condition: Normal Dentition and Removable Dentures/Plates Upper ASA Classification ASA Score: ASA 3 Emergency Case?: No NPO Status NPO Status: NPO Clears >2 hours, Solids >8 hours Anesthesia Plan Resuscitation Status: Full Code Anesthesia Technique: General Anesthesia Airway Planned: Natural Airway (Patient reports frequent vomiting episodes, but feels hungry today and no reports of nausea) Monitors Used: Standard Monitors
[2024-08-17 09:04] VITALS: BMI 28.0
--- NOTE | 2024-08-17 10:13 | STOM_PTH ---
PATIENT: Kera Reynoso LOC: [facility] U#:[id number] AGE/SX: 68/F ROOM: RE08/17/[address]: Jens Monteiro MD : [id number] BED: DIS: 08/17/2024 SPEC #: [id number] RECD: 08/17/24 13:09 STATUS: [facility] #: [id number] ROSALIA: 08/17/24 10:[address]: Jens Monteiro DEPT: Surgical Specimen RECD BY: Emily Downey ENTERED: 08/17/24 13:10 SP TYPE: STOMACH OTHR DR: Maribeth Fish, [employer] Tissues: 1 - BIOPSY BOWEL 2 - STOMACH BIOPSY 3 - STOMACH BIOPSY 4 - ESOPHAGUS BIOPSY 5 - ESOPHAGUS BIOPSY Procedures: GROSS AND MICRO LEVEL 4 Comments: [id number]
[2024-08-17 10:25] VITALS: BP 129/83; PULSE 101; RESP 20; TEMP 36.5; O2SAT 97
[2024-08-17 10:50] VITALS: BP 129/75; PULSE 89; RESP 20; TEMP 36.5; O2SAT 96
--- NOTE | 2024-08-17 11:03 | W.ANESPOSTOP ---
Postoperative Evaluation Date, Time and Location Date Performed: 08/17/24 Time Performed: 10:37 Patient Location: Day [facility] Unit Vital Signs Most Recent Imported Vital Signs: Most Recent Vital Signs Temp Pulse Resp BP Pulse Ox 36.5 C 89 20 129/75 96 08/17/24 10:50 08/17/24 10:50 08/17/24 10:50 08/17/24 10:50 08/17/24 10:50 Pain Score Most Recent Pain Score: Most Recent Pain Score Pain Level 0 08/17/24 10:50 Assessment Mental Status: Awake (Alert & Oriented to Patient Baseline) Airway and Respiratory Function: Patent airway with normal (patient baseline) respiratory exam Cardiovascular Function: Hemodynamically Stable Hydration Status: Adequately Hydrated Nausea & Vomiting: No Nausea or Vomiting Pain: Pt. Denies Any Pain Peripheral Nerve Block: Patient did not receive a nerve block
== END 2024-08-17 11:40 | disposition home or self-care (01) ==
PROVIDERS: PCP Nurse Practitioner Family; Visit Provider Surgery
PROC: 0DJ68ZZ Inspection of Stomach, Via Natural or Artificial Opening Endoscopic (ICD-10-PCS; CPT 43235; principal; 2024-08-17 09:00)
DX: K21.9 Gastro-esophageal reflux disease without esophagitis (principal); E11.9 Type 2 diabetes mellitus without complications; I10 Essential (primary) hypertension; K30 Functional dyspepsia; R13.10 Dysphagia, unspecified; K29.80 Duodenitis without bleeding; K22.89 Other specified disease of esophagus
CPT/HCPCS: 43239; 88305; J2003; J2704

== ENCOUNTER 2025-01-18 23:14 | Outpatient (REF) | payer MEDICARE, MEDICAID, SELFPAY ==
[2025-01-18 23:22] LABS: Abs Immature Grans 0.04 10^3/uL (0.0-0.06); Absolute Eosinophil Count 0.24 10^3/uL (0.0-0.7); Absolute Lymphocyte Count 3.96 10^3/uL (1.2-3.4); Absolute Monocyte Count 0.58 10^3/uL (0.1-0.8); Absolute Neutrophil Count 4.48 10^3/uL (1.2-6.7); Basophils % 1.1 %; Eosinophils % 2.6 %; HCT 43.9 % (36.0-46.0); HGB 14.1 g/dL (11.2-15.7); Immature Grans % 0.4 %; Lymphocytes % 42.1 %; MCH 29.6 pg (27.0-33.0); MCHC 32.1 % (32.0-36.0); MCV 92 fL (80-95); MPV 11.7 fL (8.0-11.0); Monocytes % 6.2 %; Neutrophils % 47.6 %; Platelet Count 240 10^3/uL (130-400); RBC 4.76 10^6/uL (3.93-5.22); RDW 14.4 % (11.7-14.6); RDW-SD 49.1 fL
[2025-01-18 23:40] LABS: Hemoglobin A1C 7.4 % (<5.7)
[2025-01-18 23:42] LABS: ALT 52 U/L (14-59); AST 29 U/L (15-37); Albumin 4.1 g/dL (3.4-5.0); Alkaline Phosphatase 87 U/L (46-116); Amylase 51 U/L (25-115); Anion Gap 11.2 mmol/L (3-11); BUN 24 mg/dL (7-18); Bilirubin, Total 0.2 mg/dL (0.2-1.0); CO2 26.8 mmol/L (21.0-32.0); CREATININE 1.1 mg/dL (0.55-1.02); Calcium 9.5 mg/dL (8.5-10.1); Chloride 105 mmol/L (98-107); Estimated GFR 54.39 (mL/min/1.73m2); Glucose 161 mg/dL (74-106); Lipase 69 U/L (<78); Potassium 5.1 mmol/L (3.5-5.1); Sodium 143 mmol/L (136-145); TSH (W/Ref FT4) 1.68 uIU/mL (0.36-3.74); Total Protein 7.7 g/dL (6.4-8.2)
[2025-01-18 23:54] LABS: Cholesterol 153 mg/dL (<200); HDL Cholesterol 43 mg/dL (>or=50); Triglyceride 426 mg/dL (<150)
[2025-01-19 00:08] LABS: LDL CHOLESTEROL 65 mg/dL (<100)
== END 2025-01-18 23:15 | disposition home or self-care (01) ==
LOC: LBN 23:14
PROVIDERS: PCP Nurse Practitioner Family; Visit Provider Nurse Practitioner Family
DX: R10.10 Upper abdominal pain, unspecified (principal); E78.5 Hyperlipidemia, unspecified; E11.9 Type 2 diabetes mellitus without complications
CPT/HCPCS: 80053; 80061; 83690; 83721; 82150; 83036; 84443; 85025

== ENCOUNTER 2025-01-19 01:08 | Outpatient (CLI) | payer MEDICARE, MEDICAID, SELFPAY ==
[2025-01-19] MEDS: Normal Saline - Diluent 50 ML VIAL IJ (10:54)
[2025-01-19] MEDS: Omnipaque 350 MG/ML 500 ML BTL-Imaging package 75 ML IJ (10:56)
--- NOTE | 2025-01-19 11:00 | DI.CT_ITS ---
Exam(s) CT ABDOMEN PELVIS W EXAM: CT ABDOMEN PELVIS W CLINICAL HISTORY: acute upper abd pain,nausea,vomiting,r10.10 TECHNIQUE: Imaging Protocol: Axial computed tomography images with coronal and sagittal reformatted images were created and reviewed. CONTRAST MATERIAL: Intravenous: Omnipaque 350 Contrast volume:75 mL Oral: Yes COMPARISON: CT CT ABDOMEN PELVIS W from 04/03/[address] ABD AORTA CTA W RUNOFF from 06/27/2023 FINDINGS: ABDOMEN: Lung Bases: No acute abnormality. Liver: There is diffuse decreased attenuation of the liver suggesting fatty infiltration. The liver is enlarged. No measurable mass. Portal, Superior Mesenteric, and Splenic Veins: Unremarkable. Gallbladder and Biliary Tract: Status post cholecystectomy. There is no biliary ductal dilatation. Pancreas: Normal density, no abnormal calcifications or inflammatory process. Spleen: Normal. Adrenals: There is stable nodularity of the left adrenal gland. No follow-up is recommended. The ri ght adrenal gland is unremarkable. Kidneys: Normal size, contour and axis. No radiodense stones or obstructive uropathy. There is a simp le cyst in the left kidney. No follow-up is recommended. Abdominal Aorta: Abdominal portion non-dilated. There is extensive atherosclerotic calcification pres ent. Bowel: No obstruction or bowel wall thickening. No evidence of appendicitis. Peritoneal Cavity: No ascites, collection or mesenteric inflammatory response. No free air. Lymph Nodes: Within normal limits. Bones: Within normal limits for the patient's age. The patient has a left total hip arthroplasty. Soft Tissues: Unremarkable. PELVIS: Bladder: Symmetric distention, no gross wall thickening. Reproductive Organs: Unremarkable as visualized. Lymph Nodes: Within normal limits. Bones: Within normal limits for the patient's age. IMPRESSION: 1. No acute abdominal or pelvic process. 2. Hepatomegaly and hepatic steatosis. 3. Status post cholecystectomy. No biliary ductal dilatation. RADIATION DOSE DELIVERED: 461.29mGy.cm Total DLP DATA REPOSITORY: All CT scans at this facility are submitted to the National Radiology Data Registry (NRDR) Dose Index Registry (DIR) with the [employer] ([employer]). RADIATION OPTIMIZATION: All CT scans at this facility use at least one of these dose optimization te chniques: automated exposure control; mA and/or kV adjustment per patient size (includes targeted exa ms where dose is matched to clinical indication); or iterative reconstruction.
== END 2025-01-19 01:28 ==
LOC: DI 01:09
PROVIDERS: PCP Nurse Practitioner Family; Visit Provider Nurse Practitioner Family
DX: R16.0 Hepatomegaly, not elsewhere classified (principal); K76.0 Fatty (change of) liver, not elsewhere classified
CPT/HCPCS: 74177

== ENCOUNTER 2025-03-21 02:02 | Outpatient (CLI) | payer MEDICARE, MEDICAID, SELFPAY ==
--- NOTE | 2025-03-21 07:45 | DI.CTLCSR_ITS ---
Exam(s) CT CHEST LUNG CANCER SCREEN EXAM: CT CHEST LUNG CANCER SCREEN CLINICAL HISTORY: Screening for lung cancer,CIG[employer]TE SMO[employer], F17.210 TECHNIQUE: Imaging Protocol: Axial computed tomography images with coronal and sagittal reformatted images were created and reviewed. Lung Computer Aided Detection (CAD) was utilized. COMPARISON: CT CT CHEST LUNG CANCER SCREEN from 01/16/[address] CHEST LUNG CANCER SCREEN from 03/15/2024 FINDINGS: Tracheobronchial tree: Patent where visualized. No bronchiectasis. Pulmonary parenchyma: No consolidation or dominant measurable mass. No architectural distortion. Lung Nodules: There are no new or suspicious nodules. Mediastinum and Savita: No dominant adenopathy or fluid collection. The esophagus is unremarkable. Thyroid gland: Unremarkable. Lymph nodes: Unremarkable. Pleura: No effusion or pneumothorax. Heart: The heart is not dilated. There are coronary artery calcifications present. No pericardial effusion. Aorta: Thoracic aorta non-dilated.Atherosclerotic calcification is present. Upper abdomen: There is no acute abnormality seen in the upper abdomen. Soft Tissues: Unremarkable. Bones: Within normal limits. IMPRESSION: There are no suspicious pulmonary nodules present. Lung RADS Cat 1 - Negative: No nodules and definitely benign nodules Lung-RADS 1.0 CATEGORIES: Category 0 - Prior chest CT exam(s) being located for comparison. Category 1 - Annual screening in 12 months. No nodules or definitely benign nodules. Category 2 - Annual screening in 12 months. Benign appearance. Nodules with low likelihood of becoming active cancer. Category 3 - 6-month follow-up. Probably benign. Short-term follow-up suggested. Nodules with low likelihood of becoming active cancer. Category 4A - 3-month follow-up and CT/PET if >8 mm in size. Suspicious finding. Findings which require additional testing. Category 4B - Findings which require additional testing and tissue sampling. Suspicious finding. Category 4X - Category 3 or 4 nodules with additional features or imaging findings that increases the suspicion of malignancy. Modifier S- Potentially clinically significant finding. (Non lung cancer) RADIATION DOSE DELIVERED: 32.61mGy.cm Total DLP 32.61mGy.cmTotal DLP DATA REPOSITORY: All CT scans at this facility are submitted to the National Radiology Data Registry (NRDR) Dose Index Registry (DIR) with the [employer] ([employer]). RADIATION OPTIMIZATION: All CT scans at this facility use at least one of these dose optimization techniques: automated exposure control; mA and/or kV adjustment per patient size (includes targeted exams where dose is matched to clinical indication); or iterative reconstruction.
--- NOTE | 2025-03-21 12:48 | DI.DEXA_ITS ---
Exam(s) XR DEXA BONE DENSITY W/WO KARLA EXAM: XR DEXA BONE DENSITY W/WO KARLA CLINICAL HISTORY: screening,MENOPAUSAL DISORDER,N95.9 TECHNIQUE: [employer] densitometer analysis of right hip, lumbar spine and left forearm. Lateral survey image of the thoracic and lumbar spine. COMPARISON: CR XR DEXA BONE DENSITY W/WO KARLA from 02/27/2021 CR XR HIP LT AP LAT ONLY from 04/21/2024 Two thousand seven FINDINGS: Lateral view of the thoracic and lumbar spine shows no evidence of compression fractures. Bone mineral density measurements of the lumbar spine correspond to a total T- score of 1.8, in the normal range. This represents a 2.4 percent increase compared with 2020 and 9.1 percent increase compared with 2006. Bone mineral density measurements of the right hip correspond to a total T-score of 0.6. The femoral neck T-score is -0.5, in the normal range. The opposite hip was scanned on the prior exams. The patient now has a left hip prosthesis. Theleft forearm bone mineral density measurements correspond to a T-score of the distal 3rd of 0.2, in the normal range. This is not significantly changed from 2020. The forearm was not analyzed in 2006. IMPRESSION: Normal bone mineral density.
== END 2025-03-21 02:22 ==
LOC: DI 02:02
PROVIDERS: PCP Nurse Practitioner Family; Visit Provider Nurse Practitioner Family
DX: N95.9 Unspecified menopausal and perimenopausal disorder (principal); Z12.2 Encounter for screening for malignant neoplasm of respiratory organs; F17.210 Nicotine dependence, cigarettes, uncomplicated
CPT/HCPCS: 71271; 77080